=== PATIENT | male | born 1945 | race Caucasian/White ===

== ENCOUNTER 2017-09-17 08:31 | Inpatient (IN) ==
--- NOTE | 2017-09-17 09:13 | XRay Report ---
INDICATION: Weakness. Hypoxia. TECHNIQUE: AP chest x-ray,portable semierect COMPARISON: Chest x-rays dated 04/09/2016, 01/19/2016, 01/04/2016, 08/12/2015 FINDINGS:Previous median sternotomy. Mildly elevated right hemidiaphragm. There is mild right basilar parenchymal density. No dense consolidation. Right basilar pneumonia is possible. Follow-up PA and lateral chest x-rays would be helpful when clinically appropriate. Left lung is negative. Heart size is within normal limits considering AP positioning. No pulmonary edema or pulmonary congestion. IMPRESSION: 1. Mild right basilar pulmonary parenchymal density and associated elevation of the right hemidiaphragm as above. Findings may be secondary to pneumonia and follow-up PA and lateral radiographs recommended. 2. Otherwise negative examination Interpreted and Authenticated by: Mo Dotson 09/17/17
[2017-09-17 09:22] LABS: Basophils # (Auto) 0 K/mcL (0.0-0.3); Basophils % (Auto) 0.3 % (0.0-2.0); Eosinophils # (Auto) 0.1 K/mcL (0.0-0.7); Eosinophils % (Auto) 1.5 % (0.0-7.0); Granulocytes % (Auto) 71.7 % (38.0-78.0); Lymphocytes # (Auto) 1.6 K/mcL (1.5-4.8); Lymphocytes % (Auto) 17.3 % (15.5-49.0); Mean Corpuscular HGB Conc 33.7 g/dL (31.0-36.0); Mean Corpuscular Hemoglobin 27.7 pg (26.0-34.0); Monocytes # (Auto) 0.8 K/mcL (0.1-0.9); Monocytes % (Auto) 9.2 % (1.0-12.0); Platelet Count 161 K/mcL (140-440); RBC 3.48 M/mcL (4.50-5.90); Red Cell Distribution Width 15.8 % (11.5-14.5)
[2017-09-17 09:47] LABS: ALT/SGPT 12 U/l (0-40); Albumin 3.8 gm/dL (3.2-5.2); Albumin/Globulin Ratio 1.2 (1.0-2.3); Alkaline Phosphatase 51 U/L (39-117); Blood Urea Nitrogen 102 mg/dl (8-23)
--- NOTE | 2017-09-17 10:09 | Cat Scan Report ---
CLINICAL INFORMATION: Somnolence. Head injury. COMPARISON: MRI scan dated July 25, 2014 TECHNIQUE: Axial noncontrast-enhanced images through the brain. Suboptimal evaluation due to patient motion. Multiple images were repeated FINDINGS: No acute intracranial hemorrhage. No subdural hematoma. No subarachnoid hemorrhage. No intra-axial hematoma. There is cerebral atrophy with ventriculomegaly. There is white matter abnormality consistent with small vessel ischemic change. These findings are advanced for age and have progressed since July 25, 2014. No well-defined focal intra-axial attenuation abnormality. No localized mass effect. No midline shift. Basilar cisterns are normal. Brainstem and cerebellum are negative. No calvarial fracture. No lytic lesion. Temporal bones are negative. IMPRESSION: 1. Severe white matter abnormality and cerebral atrophy with ventriculomegaly. Mild interval progression since July 25, 2014 2. No acute abnormality. No intracranial hemorrhage. The exam was performed using radiation dose optimization techniques including, but not limited to, automated exposure control, adjustment of the mA and/or kV according to patient size and use of iterative reconstruction technique. Interpreted and Authenticated by: Mo Dotson 09/17/17
--- NOTE | 2017-09-17 10:09 | Emergency Department Note ---
Weakness HPI - General Chief complaint: Weakness Stated complaint: Weakness Time Seen by Provider: 09/17/17 08:48 Source: patient, EMS, old records reviewed Mode of arrival: EMS Limitations: no limitations - History of Present Illness HPI Narrative: A 72-year-old male comes in from [facility] for somnolence/ difficulty awakening. Apparently he had a fall yesterday was found on the floor down unclear if he hit his head or not. He slept well but nursing staff had difficulty awakening him and so sent him in. Apparently his blood pressure was elevated but his vital signs have been normal here except for blood sugar of 278. He is afebrile and not diaphoretic. He is somnolent and difficult to arouse-I have to continually arouse him to get him to answer questions. Is not complaining of chest pain but other than that is not able to give meaningful history or review of systems. Notable history of mild cognitive impairment as well. Patient is limited intervention as well as DO NOT RESUSCITATE-POST form reviewed - Related Data Home Medications Medication Instructions Recorded Confirmed acetaminophen 325 mg tablet 650 mg PO Q4H PRN 12/20/15 09/17/17 aspirin 81 mg tablet 81 mg PO QAM 12/20/15 09/17/17 atorvastatin 10 mg tablet 5 mg PO QHS tab 12/20/15 09/17/17 bisacodyl 10 mg rectal suppository 10 mg NC ONCE PRN 12/20/15 09/17/17 budesonide-formoterol HFA 80 1 inh INHALATION QDAY g 12/20/15 09/17/17 mcg-4.5 mcg/actuation aerosol inhaler clopidogrel 75 mg tablet 75 mg PO QAM tab 12/20/15 09/17/17 docusate sodium 100 mg capsule 100 mg PO BID PRN 12/20/15 09/17/17 glucagon (human recombinant) 1 1 mg IM ONCE 12/20/15 09/17/17 mg/mL solution for injection ipratropium-albuterol 0.5 mg-3 See Label Instructions INHALATION 12/20/15 mg(2.5 mg base)/3 mL nebulization QID PRN ml soln linagliptin 5 mg tablet 5 mg PO QDAY 12/20/15 09/17/17 magnesium oxide 400 mg tablet 400 mg PO BID 12/20/15 09/17/17 tiotropium bromide 18 mcg capsule 1 cap INHALATION QDAY 12/20/15 09/17/17 with inhalation device dimethicone 1.5 % topical cream 1.5 % TOPICAL BID PRN ml 01/05/16 09/17/17 oxycodone 7.5 mg tablet,oral ONLY 7.5 mg PO BIDP PRN 05/09/16 09/17/17 (not for feeding tubes) insulin glargine (U-100) 100 33 unit SUB-Q QHS ml 07/11/16 09/17/17 unit/mL subcutaneous solution levothyroxine 125 mcg tablet 125 mcg PO HS 10/15/16 09/17/17 ferrous sulfate 325 mg (65 mg 325 mg PO QDAY tab 07/31/17 09/17/17 iron) tablet bumetanide 1 mg tablet 1 mg PO BID tab 09/05/17 09/17/17 Finasteride [Proscar] 5 mg PO DAILY 09/17/17 09/17/17 Metolazone [Zaroxolyn] 2.5 mg PO UD 09/17/17 09/17/17 Potassium Chloride [K-Tab ER] 20 meq PO BID 09/17/17 09/17/17 Tamsulosin HCl [Flomax] 0.4 mg PO HS 09/17/17 09/17/17 Tolnaftate [Antifungal] 113.3 gm TP PRN PRN 09/17/17 09/17/17 Previous Rx's Medication Instructions Recorded fentanyl 75 mcg/hr transdermal 1 patch TRANSDERMA Q72H #10 patch 02/17/15 patch pregabalin 75 mg capsule 75 mg PO BID #14 cap 03/22/16 hydralazine 10 mg tablet 10 mg PO TID PRN #30 tab 01/16/17 Allergies Allergy/AdvReac Type Severity Reaction Status Date / Time meperidine Allergy Unknown Unknown Verified 09/17/17 08:39 Review of Systems Limitations: ROS unobtainable due to patients medical condition Past Medical History - Past Medical History Attestation: Yes: The following information was validated with the patient. Medical history: Reports: atrial fibrillation, CHF, COPD, coronary artery disease, DM, GERD, hyperlipidemia, hypertension, peripheral artery disease, renal disease, thyroid disease, other (Pain/fibromyalgia, mild cognitive impairment) Psychiatric history: Reports: depression Surgical history ED: Reports: coronary bypass (CABG) - Social History smoking status: Current every day smoker Physical Exam Resting comfortably. Normocephalic atraumatic. Overweight. Conjunctive are clear sclerae white and nonicteric. Pupils are small but responsive to light. No nasal congestion or discharge. Oropharynx with tacky buccal mucosa, he is a mouth breather. Neck without carotid bruit thyromegaly or lymphadenopathy heart is regular rate and rhythm however due to body habitus I cannot hear a murmur. Lungs are basically clear to auscultation I do not hear any crackles no cough. No respiratory distress. Abdomen is soft nontender nondistended except for the right upper quadrant which was tender at first but no Martinez sign. I.e. repeat examination showed no tenderness. Normal bowel sounds. No peritoneal signs or guarding. Bilateral lower extremity edema +2 with chronic venous stasis changes including crusting few scabs but no bulla are seen. He does get chronic wound care. Neurologically he is very somnolent and will wake up and answer 1 question and falls right back to sleep. I am unable to get any meaningful history from him except answering some brief yes or no questions. Some seborrhea on his face Limitations: no limitations Course Vital Signs Temperature 97.7 F 09/17/17 08:32 Pulse Rate 85 09/17/17 08:32 Respiratory Rate 18 09/17/17 08:32 Blood Pressure 185/160 09/17/17 08:32 Pulse Oximetry (%) 93 09/17/17 08:32 Temperature 97.7 F 09/17/17 08:32 Pulse Rate 108 H 09/17/17 13:41 Respiratory Rate 30 H 09/17/17 13:41 Blood Pressure 123/70 09/17/17 13:01 Pulse Oximetry (%) 98 09/17/17 12:31 Weakness - Lab Data Lab results reviewed: Yes I reviewed the patient's lab results. Result diagrams: 09/17/17 08:54 09/17/17 08:54 Lab Results 09/17/17 09/17/17 09/17/17 Range/Units 08:34 08:54 08:54 WBC 9.0 (4.5-11.0) K/mcL RBC 3.48 L (4.50-5.90) M/mcL Hgb 9.6 L (13.5-16.5) g/dL Hct 28.5 L (41.0-55.0) % MCV 82.0 (80.0-100.0) fL MCH 27.7 (26.0-34.0) pg MCHC 33.7 (31.0-36.0) g/dL RDW 15.8 H (11.5-14.5) % Plt Count 161 (140-440) K/mcL MPV 9.6 (7.4-10.4) fL Gran % 71.7 (38.0-78.0) % Lymph % (Auto) 17.3 (15.5-49.0) % Maverick % (Auto) 9.2 (1.0-12.0) % Eos % (Auto) 1.5 (0.0-7.0) % Baso % (Auto) 0.3 (0.0-2.0) % Gran # 6.5 (1.8-8.0) K/mcL Lymph # (Auto) 1.6 (1.5-4.8) K/mcL Maverick # (Auto) 0.8 (0.1-0.9) K/mcL Eos # (Auto) 0.1 (0.0-0.7) K/mcL Baso # (Auto) 0 (0.0-0.3) K/mcL VBG Lactic Acid (0.5-2.2) mmol/L Sodium 143 (133-145) mmol/L Potassium 3.3 (3.3-5.1) mmol/L Chloride 91 L (96-108) mmol/L Carbon Dioxide 39 H (22-30) mmol/L Anion Gap 13.0 (8-16) BUN 102 H* (8-23) mg/dl Creatinine 2.2 H (0.7-1.2) mg/dl GFR Calculation 29 Glucose 243 H (70-105) mg/dL Calcium 11.3 H (8.6-10.4) mg/dl Magnesium (1.6-2.5) mg/dL Total Bilirubin 0.4 (0.0-1.0) mg/dL AST 14 (0-37) U/l ALT 12 (0-40) U/l Alkaline Phosphatase 51 (39-117) U/L Ammonia (16-60) umol/L Total Creatine Kinase (24-195) IU/L CK-MB (CK-2) (0-4.9) ng/ml Troponin T (0-0.03) ng/ml NT-Pro-B Natriuret Pep 1861.0 H (0-125) pg/ml Total Protein 7.1 (5.9-8.4) gm/dL Albumin 3.8 (3.2-5.2) gm/dL Globulin 3.3 (2.2-3.7) gm/dL Albumin/Globulin Ratio 1.2 (1.0-2.3) Procalcitonin 0.11 (<0.10) ng/mL 09/17/17 09/17/17 09/17/17 Range/Units 08:54 08:54 08:54 WBC (4.5-11.0) K/mcL RBC (4.50-5.90) M/mcL Hgb (13.5-16.5) g/dL Hct (41.0-55.0) % MCV (80.0-100.0) fL MCH (26.0-34.0) pg MCHC (31.0-36.0) g/dL RDW (11.5-14.5) % Plt Count (140-440) K/mcL MPV (7.4-10.4) fL Gran % (38.0-78.0) % Lymph % (Auto) (15.5-49.0) % Maverick % (Auto) (1.0-12.0) % Eos % (Auto) (0.0-7.0) % Baso % (Auto) (0.0-2.0) % Gran # (1.8-8.0) K/mcL Lymph # (Auto) (1.5-4.8) K/mcL Maverick # (Auto) (0.1-0.9) K/mcL Eos # (Auto) (0.0-0.7) K/mcL Baso # (Auto) (0.0-0.3) K/mcL VBG Lactic Acid (0.5-2.2) mmol/L Sodium (133-145) mmol/L Potassium (3.3-5.1) mmol/L Chloride (96-108) mmol/L Carbon Dioxide (22-30) mmol/L Anion Gap (8-16) BUN (8-23) mg/dl Creatinine (0.7-1.2) mg/dl GFR Calculation Glucose (70-105) mg/dL Calcium (8.6-10.4) mg/dl Magnesium (1.6-2.5) mg/dL Total Bilirubin (0.0-1.0) mg/dL AST (0-37) U/l ALT (0-40) U/l Alkaline Phosphatase (39-117) U/L Ammonia (16-60) umol/L Total Creatine Kinase 139 (24-195) IU/L CK-MB (CK-2) 3.1 (0-4.9) ng/ml Troponin T 0.18 H* (0-0.03) ng/ml NT-Pro-B Natriuret Pep Cancelled (0-125) pg/ml Total Protein (5.9-8.4) gm/dL Albumin (3.2-5.2) gm/dL Globulin (2.2-3.7) gm/dL Albumin/Globulin Ratio (1.0-2.3) Procalcitonin (<0.10) ng/mL 09/17/17 09/17/17 09/17/17 Range/Units 08:54 09:06 10:00 WBC (4.5-11.0) K/mcL RBC (4.50-5.90) M/mcL Hgb (13.5-16.5) g/dL Hct (41.0-55.0) % MCV (80.0-100.0) fL MCH (26.0-34.0) pg MCHC (31.0-36.0) g/dL RDW (11.5-14.5) % Plt Count (140-440) K/mcL MPV (7.4-10.4) fL Gran % (38.0-78.0) % Lymph % (Auto) (15.5-49.0) % Maverick % (Auto) (1.0-12.0) % Eos % (Auto) (0.0-7.0) % Baso % (Auto) (0.0-2.0) % Gran # (1.8-8.0) K/mcL Lymph # (Auto) (1.5-4.8) K/mcL Maverick # (Auto) (0.1-0.9) K/mcL Eos # (Auto) (0.0-0.7) K/mcL Baso # (Auto) (0.0-0.3) K/mcL VBG Lactic Acid 1.4 (0.5-2.2) mmol/L Sodium (133-145) mmol/L Potassium (3.3-5.1) mmol/L Chloride (96-108) mmol/L Carbon Dioxide (22-30) mmol/L Anion Gap (8-16) BUN (8-23) mg/dl Creatinine (0.7-1.2) mg/dl GFR Calculation Glucose (70-105) mg/dL Calcium (8.6-10.4) mg/dl Magnesium 2.1 (1.6-2.5) mg/dL Total Bilirubin (0.0-1.0) mg/dL AST (0-37) U/l ALT (0-40) U/l Alkaline Phosphatase (39-117) U/L Ammonia 17 (16-60) umol/L Total Creatine Kinase (24-195) IU/L CK-MB (CK-2) (0-4.9) ng/ml Troponin T (0-0.03) ng/ml NT-Pro-B Natriuret Pep (0-125) pg/ml Total Protein (5.9-8.4) gm/dL Albumin (3.2-5.2) gm/dL Globulin (2.2-3.7) gm/dL Albumin/Globulin Ratio (1.0-2.3) Procalcitonin (<0.10) ng/mL 09/17/17 Range/Units 12:18 WBC (4.5-11.0) K/mcL RBC (4.50-5.90) M/mcL Hgb (13.5-16.5) g/dL Hct (41.0-55.0) % MCV (80.0-100.0) fL MCH (26.0-34.0) pg MCHC (31.0-36.0) g/dL RDW (11.5-14.5) % Plt Count (140-440) K/mcL MPV (7.4-10.4) fL Gran % (38.0-78.0) % Lymph % (Auto) (15.5-49.0) % Maverick % (Auto) (1.0-12.0) % Eos % (Auto) (0.0-7.0) % Baso % (Auto) (0.0-2.0) % Gran # (1.8-8.0) K/mcL Lymph # (Auto) (1.5-4.8) K/mcL Maverick # (Auto) (0.1-0.9) K/mcL Eos # (Auto) (0.0-0.7) K/mcL Baso # (Auto) (0.0-0.3) K/mcL VBG Lactic Acid (0.5-2.2) mmol/L Sodium (133-145) mmol/L Potassium (3.3-5.1) mmol/L Chloride (96-108) mmol/L Carbon Dioxide (22-30) mmol/L Anion Gap (8-16) BUN (8-23) mg/dl Creatinine (0.7-1.2) mg/dl GFR Calculation Glucose (70-105) mg/dL Calcium (8.6-10.4) mg/dl Magnesium (1.6-2.5) mg/dL Total Bilirubin (0.0-1.0) mg/dL AST (0-37) U/l ALT (0-40) U/l Alkaline Phosphatase (39-117) U/L Ammonia (16-60) umol/L Total Creatine Kinase (24-195) IU/L CK-MB (CK-2) (0-4.9) ng/ml Troponin T 0.23 H* (0-0.03) ng/ml NT-Pro-B Natriuret Pep (0-125) pg/ml Total Protein (5.9-8.4) gm/dL Albumin (3.2-5.2) gm/dL Globulin (2.2-3.7) gm/dL Albumin/Globulin Ratio (1.0-2.3) Procalcitonin (<0.10) ng/mL Last troponin to compare to was 0.06 in 2013 Urinalysis point of care dipstick shows normal findings except for specific gravity 1.015 and glucose 250 ABG shows pH 7.5 to PCO2 of 58 and PO2 of 103 - Radiology Data Radiology results reviewed: Yes I reviewed the patient's radiology results. Chest x-ray one view portable shows possible right lower lobe pneumonia with CHF stable. Because of the possible right lower lobe pneumonia 2 views of the chest were ordered 2 views of the chest showed mild volume loss in the right side which could be pneumonia or atelectasis not conclusive CT of the head shows small vessel white matter changes likely from chronic vasculopathy/atherosclerotic changes severe advanced for age. No acute findings Postvoid residual shows 587 mL. Patient refused Vela catheter - EKG Data EKG attestation: Yes I reviewed and interpreted this EKG. EKG results narrative: EKG shows what looks like sinus rhythm with atrial pacing but PVC also evident with rate of 86 T-wave depression downsloping V4 to V6, 1 and aVL. It is difficult to see all the P waves When compared to previous EKG 04/2016- had couplets with repolarization abnormalities-today's shows new diffuse T-wave downsloping depression. T-wave in V1 and V2 consistent with old septal infarct Hips throughout his stay here showed run of V. tach as well as looks like may be atrial fibrillation which he has a history of Disposition Pt seen by PORTABLE TRACK LINE MARKER/PA only: No Clinical Impression: Elevated troponin, DM (diabetes mellitus), type 2 with peripheral vascular complications, Uncontrolled daytime somnolence, Uremia, Urinary retention Right lower lobe pneumonia Qualifiers: Pneumonia type: due to unspecified organism Qualified Code(s): J18.1 - Lobar pneumonia, unspecified organism CHF (congestive heart failure) Qualifiers: Heart failure type: unspecified Heart failure chronicity: chronic Qualified Code(s): I50.9 - Heart failure, unspecified CKD (chronic kidney disease) Qualifiers: Chronic kidney disease stage: stage 4 (severe) Qualified Code(s): N18.4 - Chronic kidney disease, stage 4 (severe) Summary: Patient was initially seen and evaluated as above. Workup began with lab imaging etc. After x-ray showed possible pneumonia blood cultures lactic acid procalcitonin ordered as well as 1 dose of Zosyn given 3.375 Troponin was elevated mildly but this could be due to chronic kidney disease and possible pneumonia case was discussed with Dr. Kaleb Butt at [facility]. He recommended ordering CK-MB and total CK to further sort out Rhythm strip showed a run of V. tach which was concerning so we discussed with patient what to do. Patient does want to be shocked back and rhythm if needed. Although his post form does say DNR he does want lifesaving treatment if needed. He remains somnolent but arousable. Defibrillator pads put on. Vital signs remained stable After getting his CK-MB and CK back, which were normal, I discussed the case with our hospitalist Dr. Puga as Dr. Butt did not feel that this was cardiac in nature. However certainly the patient is having some evidence of strain with that run of V. tach earlier. Also seems to be having some atrial fibrillation on the rhythm strip at times but again EKGs have been sinus rhythm with atrial paced complexes as well as PVCs. Repeat EKG again notes diffuse wheezing ST depression downsloping but no significant change. He remains somnolent, blood pressure normal Dr. Puga agreed to accept the patient and asked me to get a blood gas as well as repeat troponin which are ordered. He then ordered CT scan prior to coming to the floor; Narcan also requested on the off chance that perhaps this was opiate induced somnolence i.e. overmedication with oxycodone and fentanyl patch. Patient did not respond to IV Narcan 20 minutes after receiving Narcan patient was in CT scan and became agitated pulling on his IV and would not sit still. CT scan was stopped and he was brought back. He was wheezing some -mild end expiratory wheeze which was new which he did not have when he first came in . I gave him 1 dose of Ativan and started her breathing treatment and notified Dr. Puga. He was brought to the ICU Disposition: Xfer As Inpt ([facility]) Condition: Critical
[2017-09-17] MEDS ORDERED: PIPERACILLIN SODIUM/TAZOBACTAM 3.375 GM in DEXTROSE 5% IN WATER 50 ML IV ONE (10:32)
--- NOTE | 2017-09-17 10:37 | XRay Report ---
INDICATION: Hypoxia TECHNIQUE: PA and lateral upright chest x-ray COMPARISON: Previous AP portable chest x-ray dated 09/07/2017. Chest x-rays dated 04/09/2016, 01/19/2016, 01/04/2016 FINDINGS:Previous median sternotomy. There is mild cardiomegaly. Pulmonary vascularity is unremarkable. No pulmonary edema or significant pulmonary congestion. Mild bilateral lower lobe pulmonary parenchymal density. Findings may be due to benign volume loss but pneumonia is possible. Right hemidiaphragm is elevated consistent with volume loss. This is a new finding since 04/09/2016. No pleural effusion. Tamra and mediastinum are negative. IMPRESSION: 1. Cardiomegaly. No pulmonary congestion or pulmonary edema 2. Bilateral lower lobe pulmonary parenchymal density may be benign volume loss but pneumonia is possible. Interpreted and Authenticated by: Mo Dotson 09/17/17
[2017-09-17 11:11] LABS: Creatine Kinase 139 IU/L (24-195); Creatine Kinase MB 3.1 ng/ml (0-4.9)
[2017-09-17] MEDS ORDERED: NALOXONE HCL 0.4 MG/ML VIAL IV ONE (13:06)
[2017-09-17] MEDS ORDERED: NALOXONE HCL 0.4 MG/ML VIAL ONE (13:09)
--- NOTE | 2017-09-17 13:18 | Internal Med History&Physical ---
Medical - H&P: HPI Patient information: Note initiated : 09/17/17 at 1:14 pm Service Date, if different from initiated Date: [] Patient: Carmelo Stewart a 72 y/o M admitted on for Weakness. Chief Complaint: [] History of present illness: Mr. Stewart is a 72 year old Male with multiple medical issues, [place] the [place] after being confused and drowsy since this AM, no other history available, apart from possible fall yesterday In the ER pt was solmenent and only wakes up to verbal of touch, does not open eyes spontaneously, he tries to answer questions but unable to provide any meaninful input. I am aware that the ER provider tried to ask him if he would like to be cardioverted, and he noted yes, I doubt if he comphreneds enough to provide any meaningful answer to that question. Workup in the ER, showed stable vital signs. WBC count of 9.0, no left shift, hemoglobin 9.6 platelets 161. Sodium 143, potassium 3.3, chloride 91, bicarbonate 39 elevated from before, BUN is 102 elevated from baseline for him 60-70, creatinine is 2.2, glucose 243. Calcium is 11.3 elevated. Lactic acid 1.4, troponin 0 0.18 patient has had chronic elevation of troponins in the past but not this high usually highest was 0.1 to a couple of years ago. Patient has CK and CK-MB levels which are normal. BNP is 1861. Ammonia level 17. ABG shows pH of 7.5 to-PCO2 59-p.o. 203. Chest x-ray shows possible pneumonia in the right base, EKG shows sinus rhythm few PACs, left axis left anterior vascular block, T-wave inversions in the lateral leads, QS patterns V1 V2, Head CT neg. His case was reviewed by [employer] Dr Butt, who noted that his rise in troponin is non cardiac in nature, and did not want pt to be transferred to higher center. patient did get narcan with no response. On my eval he did have some right lateral abdominal pain, he is s/p cholecystectomy. He will get a CT chest abdomen and pelvis to r/o any other infectious pathology He will be admitted to telemetery. chart review. most of history available from chart review. ROS unobtainable: due to mental status Medical - H&P: PMH Medical history: Medical History (Last Reviewed 09/05/17 @ 13:50 by Liza Rashid MD) Ventricular premature beats (Acute) DM (diabetes mellitus), type 2 with neurological complications (Chronic) Acute URI (Chronic) Alcoholism (Chronic) Anemia (Chronic) Arthritis (Chronic) Chronic pain syndrome (Chronic) Kidney disease (Chronic) Kidney stones (Chronic) Asthma (Chronic) Hypercholesterolemia (Chronic) Hypertension (Chronic) Heart disease (Chronic) Hypothyroidism (Chronic) PTSD (post-traumatic stress disorder) (Chronic) High-density lipoid deficiency (Chronic) CAD (coronary artery disease) (Chronic) Coccydynia (Chronic) Gastroesophageal reflux disease (Chronic) Atrial fibrillation (Chronic) intermediate teacher prescription opiate use (Chronic) 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) Fibromyalgia (Chronic) Tobacco use (Chronic) 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) Muscle weakness (Chronic) Abnormality of gait (Chronic) Cervical radiculopathy (Chronic) CHF (congestive heart failure) (Chronic) PVD (peripheral vascular disease) (Chronic) Diabetic neuropathy (Chronic) DM (diabetes mellitus), type 2 with peripheral vascular complications (Chronic) 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) CKD (chronic kidney disease) (Chronic) Spinal stenosis (Chronic) COPD (chronic obstructive pulmonary disease) (Chronic) Diabetes mellitus (Chronic) Surgical history: Past Surgical History (Last Reviewed 09/05/17 @ 13:50 by Liza Rashid MD) History of cholecystectomy (Chronic) History of lumbosacral spine surgery (Chronic) History of parathyroidectomy (Chronic) History of sinus surgery (Chronic) History of surgery (Chronic) History of tonsillectomy (Chronic) Pertinent family history: Family History (Last Reviewed 09/05/17 @ 13:50 by Liza Rashid MD) Other Family history unknown Medical - H&P: Meds Home Medications Medication Instructions Recorded Confirmed Type fentanyl 75 mcg/hr transdermal 1 patch TRANSDERMA Q72H #10 patch 02/17/15 Rx patch acetaminophen 325 mg tablet 650 mg PO Q4H PRN 12/20/15 09/17/17 History aspirin 81 mg tablet 81 mg PO QAM 12/20/15 09/17/17 History atorvastatin 10 mg tablet 5 mg PO QHS tab 12/20/15 09/17/17 History bisacodyl 10 mg rectal suppository 10 mg [place] ONCE PRN 12/20/15 09/17/17 History budesonide-formoterol HFA 80 1 inh INHALATION QDAY g 12/20/15 09/17/17 History mcg-4.5 mcg/actuation aerosol inhaler clopidogrel 75 mg tablet 75 mg PO QAM tab 12/20/15 09/17/17 History docusate sodium 100 mg capsule 100 mg PO BID PRN 12/20/15 09/17/17 History glucagon (human recombinant) 1 1 mg IM ONCE 12/20/15 09/17/17 History mg/mL solution for injection ipratropium-albuterol 0.5 mg-3 See Label Instructions INHALATION 12/20/15 History mg(2.5 mg base)/3 mL nebulization QID PRN ml soln linagliptin 5 mg tablet 5 mg PO QDAY 12/20/15 09/17/17 History magnesium oxide 400 mg tablet 400 mg PO BID 12/20/15 09/17/17 History tiotropium bromide 18 mcg capsule 1 cap INHALATION QDAY 12/20/15 09/17/17 History with inhalation device dimethicone 1.5 % topical cream 1.5 % TOPICAL BID PRN ml 01/05/16 09/17/17 History pregabalin 75 mg capsule 75 mg PO BID #14 cap 03/22/16 09/17/17 Rx oxycodone 7.5 mg tablet,oral ONLY 7.5 mg PO BIDP PRN 05/09/16 09/17/17 History (not for feeding tubes) insulin glargine (U-100) 100 33 unit SUB-Q QHS ml 07/11/16 09/17/17 History unit/mL subcutaneous solution levothyroxine 125 mcg tablet 125 mcg PO HS 10/15/16 09/17/17 History hydralazine 10 mg tablet 10 mg PO TID PRN #30 tab 01/16/17 09/17/17 Rx ferrous sulfate 325 mg (65 mg 325 mg PO QDAY tab 07/31/17 09/17/17 History iron) tablet bumetanide 1 mg tablet 1 mg PO BID tab 09/05/17 09/17/17 History Finasteride [Proscar] 5 mg PO DAILY 09/17/17 09/17/17 History Metolazone [Zaroxolyn] 2.5 mg PO UD 09/17/17 09/17/17 History Potassium Chloride [K-Tab ER] 20 meq PO BID 09/17/17 09/17/17 History Tamsulosin HCl [Flomax] 0.4 mg PO HS 09/17/17 09/17/17 History Tolnaftate [Antifungal] 113.3 gm TP PRN PRN 09/17/17 09/17/17 History Allergies Allergy/AdvReac Type Severity Reaction Status Date / Time meperidine Allergy Unknown Unknown Verified 09/17/17 08:39 Medical - H&P: Exam - Constitutional Vitals: Temp Pulse Resp BP Pulse Ox 97.7 F 69 17 125/65 98 09/17/17 08:32 09/17/17 12:31 09/17/17 12:31 09/17/17 12:31 09/17/17 12:31 Exam: GENERAL: The patient is a obese, drowsy, aoox1, confused VITAL SIGNS: Reviewed and as noted elsewhere. HEENT: Head is normocephalic and atraumatic. Extraocular muscles are intact. Pupils are equal, round, and reactive to light. Nares appeared normal. Mouth appears any without lesions. Mucous membranes are dry NECK: Normal to inspection, Supple, No lymphadenopathy or thyromegaly. LUNGS: Air entry equal on both sides, mild wheezing present, crackles or rhonchi noted. No accessory muscles of respiration, poor air entry bilaterally. HEART: Regular rate and rhythm normal, S1 and S2 heard, no Gallop, S3 or Rub Noted, No Gross murmur heard. ABDOMEN: Soft, right side tenderness, no guarding or rebound noted, nondistended. Positive bowel sounds. No hepatosplenomegaly was noted. EXTREMITIES: No cyanosis, clubbing, rash, . bilaterally has dry scaly lesions in lower 1/3, 1+ pitting edema present. NEUROLOGIC: Cranial nerves II through XII are grossly intact. Motor and Sensory System Grossly Intact, moves all extremities, responds to touch PSYCHIATRIC: Normal affect, Normal Mood. Appropriate Behavior. SKIN:wounds noted, No jaundice, No rash noted. Medical - H&P: Reslt - Labs CBC & Chem 7: 09/17/17 08:54 09/17/17 08:54 Labs: Short CBC 09/17/17 Range/Units 08:54 WBC 9.0 (4.5-11.0) K/mcL Hgb 9.6 L (13.5-16.5) g/dL Hct 28.5 L (41.0-55.0) % Plt Count 161 (140-440) K/mcL BMP 09/17/17 08:54 Sodium 143 Potassium 3.3 Chloride 91 L Carbon Dioxide 39 H BUN 102 H* Creatinine 2.2 H Glucose 243 H Calcium 11.3 H Cardiac Enzymes 09/17/17 09/17/17 Range/Units 08:54 08:54 Total Creatine Kinase 139 (24-195) IU/L CK-MB (CK-2) 3.1 (0-4.9) ng/ml Troponin T 0.18 H* (0-0.03) ng/ml Liver Function 09/17/17 Range/Units 08:54 Total Bilirubin 0.4 (0.0-1.0) mg/dL AST 14 (0-37) U/l ALT 12 (0-40) U/l Alkaline Phosphatase 51 (39-117) U/L Albumin 3.8 (3.2-5.2) gm/dL Medical - H&P: A/P - Narrative A/P Narrative: A/P Acute encephalopathy: Workup neg so far, likely uremic encephalopathy, hold off narcotic meds for now, did not respond to narcan. Acute worsening of BUN: It seems pt was getting diuretics for his lower extremity edema, bun baseline around 60, now 102, this could be causing some encephalopathy. HOld diureitcs, IV fluids for now, and monitor for response pneumonia: reported on X ray, but labs and exam is not suggestive of same. Get CT Chest, start on vanco and zosyn Copd exacerbation/ Reactive airway disease: mild wheezing on exam, start on duonebs, azithromax and solumedrol Abdominal tenderness: h/o cholecystectomy, get Abdominal CT without contrast DM: Sliding scale insulin for glucose control hold oral meds CAD/HTN/HLD: Resume home meds as appropriate CKD: Creat around baseline, monitor and see how he does with fluids, if worsens get nephrology help, try to get a trejo Elevated Trop and EKG changes: Could be seen with electrolyte changes, and CKD, pt did not have cp, althouth NSVT was present, given that the director nursery school feels this is non cardiac, will just monitor for now. ALso given his overalll clinical picture, doublt if he will be a candidate for any intervention. MOrbid obesity- out pt management. lower extremity venous stasis: does not look infected, wound care consult, antibiotics for now; h/o chf: hold diuretics for now Chr pain: DJD, on fentanyl patch, oxycodone,. hold same for now await for patient to wake up DVT hep sq Diet cardiac, renal diabetic diet DNR code status as per post, pt is encephalopathic and I cannot say that he was able to make any informed decision at this time. monitor on tele. Update: Pt was agitated in the CT, and Kicked the nurse as per the ER provider, he did get some ativan Social History - Social History marital status: single occupational status: retired other: Recently weaned off Marinol - Exercise physical activity: none - Tobacco smoking status: Current every day smoker - Alcohol alcohol intake frequency: a few times a month - Substance use substance use type: marijuana, crack/cocaine, amphetamines
[2017-09-17] MEDS ORDERED: LORazepam 2 MG/ML VIAL ONE (13:30)
[2017-09-17] MEDS ORDERED: IPRATROPIUM/ALBUTEROL 3 ML AMPUL.NEB NEB ONE (13:33)
[2017-09-17] MEDS ORDERED: LORazepam 2 MG/ML VIAL IV ONE (13:36)
[2017-09-17] MEDS ORDERED: DOCUSATE SODIUM 100 MG CAPSULE PO PRN (14:13)
[2017-09-17] MEDS ORDERED: DEXTROSE 50% 50 ML VIAL IV PRN (14:13)
[2017-09-17] MEDS ORDERED: VANCOMYCIN PER PHARMACY IV SCH (14:13)
[2017-09-17] MEDS ORDERED: DEXTROSE 31 GM ORAL.SUSP PO PRN (14:13)
[2017-09-17] MEDS ORDERED: hydrALAZINE 10 MG TABLET PO PRN (14:13)
[2017-09-17] MEDS ORDERED: NALOXONE HCL 0.4 MG/ML VIAL IV PRN (14:13)
[2017-09-17] MEDS ORDERED: 0.9 % SODIUM CHLORIDE 1,000 ML IV ONE (14:13)
[2017-09-17] MEDS: 0.9 % SODIUM CHLORIDE 1,000 ML IV SCH (14:30)
[2017-09-17] MEDS: IPRATROPIUM/ALBUTEROL 3 ML AMPUL.NEB NEB SCH ×3 (15:16→22:47)
[2017-09-17] MEDS ORDERED: VANCOMYCIN 2,000 MG in 0.9 % SODIUM CHLORIDE 500 ML IV SCH (16:00)
[2017-09-17] MEDS ORDERED: PIPERACILLIN SODIUM/TAZOBACTAM 3.375 GM in DEXTROSE 5% IN WATER 50 ML IV SCH (16:00)
[2017-09-17] MEDS ORDERED: METOPROLOL TARTRATE 5 MG/5 ML VIAL IV ONE ×3 (16:26→16:35)
[2017-09-17] MEDS: 0.9 % SODIUM CHLORIDE 10 ML SYRINGE IV SCH ×2 (17:49→21:43)
[2017-09-17] MEDS: AZITHROMYCIN 500 MG in DEXTROSE 5% IN WATER 250 ML IV SCH (17:57)
[2017-09-17] MEDS: methylPREDNISolone SOD SUCC 125 MG/2 ML VIAL IV SCH (18:02)
[2017-09-17] MEDS: INSULIN LISPRO 1 UNIT/0.01 ML UNIT SQ SCH ×2 (18:09→21:32)
--- NOTE | 2017-09-17 18:58 | General Surgery Consult Note ---
History of Present Illness Patient information: Note initiated : 09/17/17 at 6:54 pm Service Date, if different from initiated Date: [] Patient: Carmelo Stewart 72 y/o M admitted on 09/17/17 for Weakness. Chief Complaint: [] Consult date: 09/17/17 Requesting physician: Chris Puga (Wound Care Management) History of present illness: I saw this patient in room 120 /A . 72/M with multiple medical problems, Morbid Obesity, Daily smoker admitted from [facility] for [facility], pneumonia and CHF, arrhythmias . These are being managed by the Hospitalist Physician. Patient has chronic scaly dermatitis of both legs. L > R. He is being followed in [facility] for same. Medications and Allergies Home Medications Medication Instructions Recorded Confirmed Type fentanyl 75 mcg/hr transdermal 1 patch TRANSDERMA Q72H #10 patch 02/17/15 Rx patch acetaminophen 325 mg tablet 650 mg PO Q4H PRN 12/20/15 09/17/17 History aspirin 81 mg tablet 81 mg PO QAM 12/20/15 09/17/17 History atorvastatin 10 mg tablet 5 mg PO QHS tab 12/20/15 09/17/17 History bisacodyl 10 mg rectal suppository 10 mg [place] ONCE PRN 12/20/15 09/17/17 History budesonide-formoterol HFA 80 1 inh INHALATION QDAY g 12/20/15 09/17/17 History mcg-4.5 mcg/actuation aerosol inhaler clopidogrel 75 mg tablet 75 mg PO QAM tab 12/20/15 09/17/17 History docusate sodium 100 mg capsule 100 mg PO BID PRN 12/20/15 09/17/17 History glucagon (human recombinant) 1 1 mg IM ONCE 12/20/15 09/17/17 History mg/mL solution for injection ipratropium-albuterol 0.5 mg-3 See Label Instructions INHALATION 12/20/15 History mg(2.5 mg base)/3 mL nebulization QID PRN ml soln linagliptin 5 mg tablet 5 mg PO QDAY 12/20/15 09/17/17 History magnesium oxide 400 mg tablet 400 mg PO BID 12/20/15 09/17/17 History tiotropium bromide 18 mcg capsule 1 cap INHALATION QDAY 12/20/15 09/17/17 History with inhalation device dimethicone 1.5 % topical cream 1.5 % TOPICAL BID PRN ml 01/05/16 09/17/17 History pregabalin 75 mg capsule 75 mg PO BID #14 cap 03/22/16 09/17/17 Rx oxycodone 7.5 mg tablet,oral ONLY 7.5 mg PO BIDP PRN 05/09/16 09/17/17 History (not for feeding tubes) insulin glargine (U-100) 100 33 unit SUB-Q QHS ml 07/11/16 09/17/17 History unit/mL subcutaneous solution levothyroxine 125 mcg tablet 125 mcg PO HS 10/15/16 09/17/17 History hydralazine 10 mg tablet 10 mg PO TID PRN #30 tab 01/16/17 09/17/17 Rx ferrous sulfate 325 mg (65 mg 325 mg PO QDAY tab 07/31/17 09/17/17 History iron) tablet bumetanide 1 mg tablet 1 mg PO BID tab 09/05/17 09/17/17 History Finasteride [Proscar] 5 mg PO DAILY 09/17/17 09/17/17 History Metolazone [Zaroxolyn] 2.5 mg PO UD 09/17/17 09/17/17 History Potassium Chloride [K-Tab ER] 20 meq PO BID 09/17/17 09/17/17 History Tamsulosin HCl [Flomax] 0.4 mg PO HS 09/17/17 09/17/17 History Tolnaftate [Antifungal] 113.3 gm TP PRN PRN 09/17/17 09/17/17 History Allergies Allergy/AdvReac Type Severity Reaction Status Date / Time meperidine Allergy Unknown Unknown Verified 09/17/17 08:39 Exam Temp Pulse Resp BP Pulse Ox 97.7 F 112 H 19 153/97 93 09/17/17 18:28 09/17/17 18:28 09/17/17 18:28 09/17/17 18:28 09/17/17 18:28 - General physical appearance well developed, moderate distress, obese - Eyes PERRL, normal ocular movement - ENT normal pinna, normal nares, normal mucosa, no congestion - Head Head exam IM: Present: atraumatic, normal inspection, normocephalic - Neck no masses, no bruits, trachea midline, no venous distension - Cardiovascular Cardiovascular exam IM: Present: irregular rhythm - Respiratory absent breath sounds: bilateral (Both lung bases) - Abdomen Abdomen: Present: soft, non tender, bowel sounds - Integumentary Present: other (2 + edema both legs and dorsal surface of feet. Scals and chronic dermatitis both legs lower lateral sufaces L > R) - Neurologic Present: confused - Musculoskeletal Present: other (Lying in bed. ) - Psychiatric Present: other (Sleepy. Will check again in AM. ) Results - Labs 09/18/17 07:47 09/18/17 07:47 Abnormal lab results 09/17/17 09/17/17 09/17/17 Range/Units 08:54 08:54 08:54 RBC 3.48 L (4.50-5.90) M/mcL Hgb 9.6 L (13.5-16.5) g/dL Hct 28.5 L (41.0-55.0) % RDW 15.8 H (11.5-14.5) % Chloride 91 L (96-108) mmol/L Carbon Dioxide 39 H (22-30) mmol/L BUN 102 H* (8-23) mg/dl Creatinine 2.2 H (0.7-1.2) mg/dl Glucose 243 H (70-105) mg/dL Calcium 11.3 H (8.6-10.4) mg/dl Troponin T 0.18 H* (0-0.03) ng/ml NT-Pro-B Natriuret Pep 1861.0 H (0-125) pg/ml 09/17/17 Range/Units 12:18 RBC (4.50-5.90) M/mcL Hgb (13.5-16.5) g/dL Hct (41.0-55.0) % RDW (11.5-14.5) % Chloride (96-108) mmol/L Carbon Dioxide (22-30) mmol/L BUN (8-23) mg/dl Creatinine (0.7-1.2) mg/dl Glucose (70-105) mg/dL Calcium (8.6-10.4) mg/dl Troponin T 0.23 H* (0-0.03) ng/ml NT-Pro-B Natriuret Pep (0-125) pg/ml Diabetes panel 09/17/17 Range/Units 08:54 Sodium 143 (133-145) mmol/L Potassium 3.3 (3.3-5.1) mmol/L Chloride 91 L (96-108) mmol/L Carbon Dioxide 39 H (22-30) mmol/L BUN 102 H* (8-23) mg/dl Creatinine 2.2 H (0.7-1.2) mg/dl Glucose 243 H (70-105) mg/dL Calcium 11.3 H (8.6-10.4) mg/dl AST 14 (0-37) U/l ALT 12 (0-40) U/l Alkaline Phosphatase 51 (39-117) U/L Total Protein 7.1 (5.9-8.4) gm/dL Albumin 3.8 (3.2-5.2) gm/dL Calcium panel 09/17/17 Range/Units 08:54 Calcium 11.3 H (8.6-10.4) mg/dl Albumin 3.8 (3.2-5.2) gm/dL Pituitary panel 09/17/17 Range/Units 08:54 Sodium 143 (133-145) mmol/L Potassium 3.3 (3.3-5.1) mmol/L Chloride 91 L (96-108) mmol/L Carbon Dioxide 39 H (22-30) mmol/L BUN 102 H* (8-23) mg/dl Creatinine 2.2 H (0.7-1.2) mg/dl Glucose 243 H (70-105) mg/dL Calcium 11.3 H (8.6-10.4) mg/dl Adrenal panel 09/17/17 Range/Units 08:54 Sodium 143 (133-145) mmol/L Potassium 3.3 (3.3-5.1) mmol/L Chloride 91 L (96-108) mmol/L Carbon Dioxide 39 H (22-30) mmol/L BUN 102 H* (8-23) mg/dl Creatinine 2.2 H (0.7-1.2) mg/dl Glucose 243 H (70-105) mg/dL Calcium 11.3 H (8.6-10.4) mg/dl Total Bilirubin 0.4 (0.0-1.0) mg/dL AST 14 (0-37) U/l ALT 12 (0-40) U/l Alkaline Phosphatase 51 (39-117) U/L Total Protein 7.1 (5.9-8.4) gm/dL Albumin 3.8 (3.2-5.2) gm/dL All other labs normal. Assessment and Plan (1) Dermatitis exfoliativa Assessment: Chronic scales and dry dermatitis of both legs. Plan: Local hygiene and DAILY cleansing with Chlorhexidine an topical application of skin repair creme / moisturizer. Will follow the patient whilst he is hospitalized. Status: Chronic Priority: Low Comment: Chronic edema of both LE and scales / dermatitis of both lower lateral legs. NO evidence of acute infection or cellulitis.
[2017-09-17] MEDS: MAGNESIUM OXIDE 400 MG TABLET PO SCH (21:25)
[2017-09-17] MEDS: LEVOTHYROXINE 125 MCG TABLET PO SCH (21:25)
[2017-09-17] MEDS: TAMSULOSIN 0.4 MG CAPSULE PO SCH (21:25)
[2017-09-17] MEDS: PREGABALIN 75 MG CAPSULE PO SCH (21:32)
[2017-09-17] MEDS: ATORVASTATIN 20 MG TABLET PO SCH (21:32)
[2017-09-17] MEDS: HEPARIN 5,000 UNIT/ML VIAL SQ SCH (21:32)
[2017-09-17] MEDS: PIPERACILLIN SODIUM/TAZOBACTAM 3.375 GM in DEXTROSE 5% IN WATER 50 ML IV SCH (22:15)
[2017-09-18] MEDS: methylPREDNISolone SOD SUCC 125 MG/2 ML VIAL IV SCH ×4 (00:26→22:05)
[2017-09-18] MEDS: ACETAMINOPHEN 325 MG TABLET PO PRN ×2 (02:18→08:30)
[2017-09-18] MEDS: 0.9 % SODIUM CHLORIDE 1,000 ML IV SCH (02:51)
[2017-09-18] MEDS: IPRATROPIUM/ALBUTEROL 3 ML AMPUL.NEB NEB SCH ×6 (03:46→23:19)
[2017-09-18] MEDS: 0.9 % SODIUM CHLORIDE 10 ML SYRINGE IV SCH ×3 (05:49→22:03)
[2017-09-18] MEDS: PIPERACILLIN SODIUM/TAZOBACTAM 3.375 GM in DEXTROSE 5% IN WATER 50 ML IV SCH ×3 (05:49→22:04)
[2017-09-18] MEDS: INSULIN LISPRO 1 UNIT/0.01 ML UNIT SQ SCH ×4 (07:52→21:03)
[2017-09-18 08:20] LABS: Basophils # (Auto) 0 K/mcL (0.0-0.3); Basophils % (Auto) 0 % (0.0-2.0); Eosinophils # (Auto) 0 K/mcL (0.0-0.7); Eosinophils % (Auto) 0 % (0.0-7.0); Granulocytes % (Auto) 91.5 % (38.0-78.0); Lymphocytes # (Auto) 0.7 K/mcL (1.5-4.8); Lymphocytes % (Auto) 7.9 % (15.5-49.0); Mean Corpuscular HGB Conc 32.8 g/dL (31.0-36.0); Mean Corpuscular Hemoglobin 27.2 pg (26.0-34.0); Monocytes # (Auto) 0 K/mcL (0.1-0.9); Monocytes % (Auto) 0.6 % (1.0-12.0); Platelet Count 153 K/mcL (140-440); RBC 3.41 M/mcL (4.50-5.90); Red Cell Distribution Width 15.4 % (11.5-14.5)
[2017-09-18] MEDS: MAGNESIUM OXIDE 400 MG TABLET PO SCH ×2 (08:30→21:00)
[2017-09-18] MEDS: HEPARIN 5,000 UNIT/ML VIAL SQ SCH ×2 (08:30→21:00)
[2017-09-18] MEDS: ASPIRIN 81 MG TAB.CHEW PO SCH (08:32)
[2017-09-18] MEDS: FERROUS SULFATE 325 MG TABLET PO SCH (08:32)
[2017-09-18] MEDS: CLOPIDOGREL 75 MG TABLET PO SCH (08:32)
[2017-09-18 08:48] LABS: ALT/SGPT 15 U/l (0-40); Albumin 3.4 gm/dL (3.2-5.2); Albumin/Globulin Ratio 1.1 (1.0-2.3); Alkaline Phosphatase 45 U/L (39-117); Bilirubin,Direct < 0.2 mg/dL (0.0-0.3); Blood Urea Nitrogen 75 mg/dl (8-23); Gamma Glutamyl Transpeptidase 22 U/L (8-61); Uric Acid 10.5 mg/dL (2.5-8.0)
[2017-09-18] MEDS ORDERED: POTASSIUM CHLORIDE 20 MEQ PACKET PO ONE (09:25)
[2017-09-18] MEDS ORDERED: IPRATROPIUM/ALBUTEROL 3 ML AMPUL.NEB NEB PRN (09:25)
[2017-09-18] MEDS ORDERED: TOLNAFTATE TOPICAL PRN (09:25)
[2017-09-18] MEDS: FINASTERIDE 5 MG TABLET PO SCH (09:51)
[2017-09-18] MEDS: PREGABALIN 75 MG CAPSULE PO SCH ×2 (09:51→21:00)
[2017-09-18] MEDS: BUDESONIDE INH SCH (09:52)
[2017-09-18] MEDS: FORMOTEROL FUMARATE INH SCH (09:52)
[2017-09-18] MEDS: AZITHROMYCIN 500 MG in DEXTROSE 5% IN WATER 250 ML IV SCH (11:51)
[2017-09-18] MEDS: TIOTROPIUM BROMIDE 18 MCG INHALANT INH SCH (15:44)
[2017-09-18] MEDS: VANCOMYCIN 1,500 MG in 0.9 % SODIUM CHLORIDE 500 ML IV SCH (16:40)
[2017-09-18] MEDS: POTASSIUM CHLORIDE 20 MEQ TABLET PO SCH (16:40)
--- NOTE | 2017-09-18 20:53 | Internal Med Progress Note ---
Medical - PN: Subj Patient information: Note initiated : 09/18/17 at 8:51 pm Service Date, if different from initiated Date: [] Patient: Carmelo Stewatr 72 y/o M admitted on 09/17/17 for Weakness/Pneumonia. Chief Complaint: [] Interval history: Mr. Stewart is a 72 year old Male with multiple medical issues, [place] the [place] after being confused and drowsy since this AM, no other history available, apart from possible fall yesterday In the ER pt was solmenent and only wakes up to verbal of touch, does not open eyes spontaneously, he tries to answer questions but unable to provide any meaninful input. I am aware that the ER provider tried to ask him if he would like to be cardioverted, and he noted yes, I doubt if he comphreneds enough to provide any meaningful answer to that question. Workup in the ER, showed stable vital signs. WBC count of 9.0, no left shift, hemoglobin 9.6 platelets 161. Sodium 143, potassium 3.3, chloride 91, bicarbonate 39 elevated from before, BUN is 102 elevated from baseline for him 60-70, creatinine is 2.2, glucose 243. Calcium is 11.3 elevated. Lactic acid 1.4, troponin 0 0.18 patient has had chronic elevation of troponins in the past but not this high usually highest was 0.1 to a couple of years ago. Patient has CK and CK-MB levels which are normal. BNP is 1861. Ammonia level 17. ABG shows pH of 7.5 to-PCO2 58-p.o. 203. Chest x-ray shows possible pneumonia in the right base, EKG shows sinus rhythm few PACs, left axis left anterior vascular block, T-wave inversions in the lateral leads, QS patterns V1 V2, Head CT neg. His case was reviewed by Investigative Reporter Dr Butt, who noted that his rise in troponin is non cardiac in nature, and did not want pt to be transferred to higher center. 09/18 Pt seen examined, no acute ovenright issues, mental status better, he is more agitated and angry, rude with the nursing staff, it seems this is his baseilne status. trop trended up, and is now trending down, he did have afib with rvr which may have contributed to some rise in trop. repeat again in AM continue with gentole hydration and see how he does in AM, Pertinent ROS: Denies headache, dizziness Denies chest pain, palpitations Denies cough or shortness of breath Denies abdominal pain, nausea or vomiting. - Constitutional Vitals: Vital Signs Temp Pulse Resp BP Pulse Ox 97.7 F 80 20 130/91 96 09/18/17 16:00 09/18/17 20:08 09/18/17 20:08 09/18/17 16:00 09/18/17 20:08 Period Temp Pulse Resp BP Sys/Mcneill Pulse Ox Last 24 Hr 97.2 F-99.1 F 42-131 12-25 118-165/51-116 91-96 Intake and Output 09/18/17 09/18/17 09/18/17 05:59 13:59 21:59 Intake Total 200 / 200 790 / 790 Output Total 1900 / 1900 1500 / 1500 Balance -1700 / -1700 790 / 790 -1500 / -1500 Weight 247 lb Patient Weight 09/19/17 05:59 Weight 247 lb Intake & Output: Intake & Output 09/18/17 09/18/17 09/18/17 05:59 13:59 21:59 Intake Total 200 / 200 790 / 790 Output Total 1900 / 1900 1500 / 1500 Balance -1700 / -1700 790 / 790 -1500 / -1500 Weight 247 lb Intake: IV 50 / 50 50 / 50 Zosyn 3.375 gm In Dextrose 5% 50 / 50 50 / 50 in Water 50 ml @ 100 mls/hr IV Q8H [facility] Rx#:[id number] Oral 150 / 150 740 / 740 Output: Urine Catheter Amount 1900 / 1900 1500 / 1500 Other: Meal Lunch Percent of Meal Consumed 50% Stool Size Large Stool Color Brown Blood Tinged Stool Consistency Dry and Hard # of times incontinent of 1 Bowels Exam: Constitutional; Afebrile, cooperative, alert, not in distress. obese individual Eyes- No icterus, , No periorbital swelling Ears- Ext ear normal, hearing normal to conversation. Neck- Midline trachea, supple Respiratory system: Air Entry equal on both sides, No crackles or wheezing, no rhonchi. ant exam only CVS- Rate rhythm regular, S1,S2 heard, no gallop, no rub. Abdomen- Soft nontender abdomen, no organomegaly, no tenderness, no guarding or rigidity, COMPLAINT ADJUSTER- AOOx3, moving all extremities, no gross focal deficit noted. Medical - PN: Obj Da - Labs CBC & Chem 7: 09/18/17 07:47 09/18/17 07:47 Labs: Abnormal Lab Results 09/18/17 09/18/17 09/18/17 09:36 07:47 07:47 RBC Hgb Hct RDW Gran % Lymph % (Auto) [place] % (Auto) Lymph # (Auto) [place] # (Auto) Potassium 2.9 L* Chloride Carbon Dioxide 34 H BUN 75 H Creatinine 1.9 H Glucose 326 H Uric Acid 10.5 H Calcium Phosphorus 4.6 H Troponin T 0.39 H* 0.41 H* NT-Pro-B Natriuret Pep Triglycerides 162 H 09/18/17 09/17/17 09/17/17 07:47 12:18 08:54 RBC 3.41 L Hgb 9.3 L Hct 28.3 L RDW 15.4 H Gran % 91.5 H Lymph % (Auto) 7.9 L [place] % (Auto) 0.6 L Lymph # (Auto) 0.7 L [place] # (Auto) 0 L Potassium Chloride Carbon Dioxide BUN Creatinine Glucose Uric Acid Calcium Phosphorus Troponin T 0.23 H* 0.18 H* NT-Pro-B Natriuret Pep Triglycerides 09/17/17 09/17/17 08:54 08:54 RBC 3.48 L Hgb 9.6 L Hct 28.5 L RDW 15.8 H Gran % Lymph % (Auto) [place] % (Auto) Lymph # (Auto) [place] # (Auto) Potassium Chloride 91 L Carbon Dioxide 39 H BUN 102 H* Creatinine 2.2 H Glucose 243 H Uric Acid Calcium 11.3 H Phosphorus Troponin T NT-Pro-B Natriuret Pep 1861.0 H Triglycerides Meds: Medications Acetaminophen (Tylenol) 650 mg PO Q6HP PRN PRN Reason: PAIN/FEVER > 101 Last Admin: 09/18/17 08:30 Dose: 650 mg Albuterol/Ipratropium (Duoneb) 3 ml NEB Q4HRT CRYSTAL Last Admin: 09/18/17 20:00 Dose: 3 ml Albuterol/Ipratropium (Duoneb) 3 ml NEB QIDP PRN PRN Reason: Shortness Of Breath Aspirin (Aspirin) 81 mg PO DAILY [facility] Last Admin: 09/18/17 08:32 Dose: 81 mg Atorvastatin Calcium (Lipitor) 5 mg PO HS [facility] Last Admin: 09/17/17 21:32 Dose: 5 mg Clopidogrel Bisulfate (Plavix) 75 mg PO QAM [facility] Last Admin: 09/18/17 08:32 Dose: 75 mg Dextrose (Dextrose 50%) 0 ml IV UD PRN PRN Reason: Hypoglycemia Diagnostic Test (Pha) (Accu-Chek) 1 each FS ACHS [facility] Last Admin: 09/18/17 17:45 Dose: 1 each Docusate Sodium (Colace) 100 mg PO BID PRN PRN Reason: Constipation Last Admin: 09/18/17 09:51 Dose: 100 mg Ferrous Sulfate (Ferrous Sulfate) 325 mg PO QDAY [facility] Last Admin: 09/18/17 08:32 Dose: 325 mg Finasteride (Proscar) 5 mg PO DAILY [facility] Last Admin: 09/18/17 09:51 Dose: 5 mg Glucose (Insta-Glucose) 15 gm PO PRN PRN PRN Reason: Hypoglycemia Heparin Sodium (Porcine) (Heparin) 5,000 unit SQ Q12 [facility] Last Admin: 09/18/17 08:30 Dose: 5,000 unit Hydralazine HCl (Apresoline) 10 mg PO TID PRN PRN Reason: if BP is more than 160/90 Piperacillin Sod/Tazobactam (Sod 3.375 gm/ Dextrose) 50 mls @ 100 mls/hr IV Q8H [facility] Last Admin: 09/18/17 15:44 Dose: 100 mls/hr Sodium Chloride (Sodium Chloride 0.9%) 1,000 mls @ 84 mls/hr IV .[id number] [facility] Stop: 09/19/17 01:55 Last Admin: 09/18/17 02:51 Dose: Not Given Azithromycin 500 mg/ Dextrose 250 mls @ 250 mls/hr IV Q24H [facility] Stop: 09/19/17 15:12 Last Admin: 09/18/17 11:51 Dose: 250 mls/hr Vancomycin HCl 1,500 mg/ (Sodium Chloride) 500 mls @ 333.333 mls/hr IV Q24H [facility] Last Admin: 09/18/17 16:40 Dose: 333.333 mls/hr Insulin Human Lispro (Humalog) 0 unit SQ ACHS [facility] PRN Reason: Protocol Last Admin: 09/18/17 18:14 Dose: 6 unit Levothyroxine Sodium (Synthroid) 125 mcg PO HS [facility] Last Admin: 09/17/17 21:25 Dose: 125 mcg Magnesium Oxide (Magnesium Oxide) 400 mg PO BID [facility] Last Admin: 09/18/17 08:30 Dose: 400 mg Methylprednisolone Sodium Succinate (Solu-Medrol) 62.5 mg IV Q8 [facility] Last Admin: 09/18/17 15:43 Dose: 62.5 mg Naloxone HCl (Narcan) 0.1 mg IV Q2MIN PRN PRN Reason: Opiate Reversal Ondansetron HCl (Zofran) 4 mg IV Q4HP PRN PRN Reason: Nausea And Vomiting Budesonide/Formoterol Fumarate [Symbicort 80-4.5 Inh 1 dose INH DAILY [facility] Last Admin: 09/18/17 09:52 Dose: Not Given Tolnaftate [ (Antifungal] Powder) 1 dose TOPICAL PRN PRN PRN Reason: Rash Potassium Chloride (Kdur) 20 meq PO BIDCC [facility] Last Admin: 09/18/17 16:40 Dose: 20 meq Pregabalin (Lyrica) 75 mg PO BID [facility] Last Admin: 09/18/17 09:51 Dose: 75 mg Sodium Chloride (Saline Flush) 10 ml IV Q8 [facility] Last Admin: 09/18/17 15:43 Dose: Not Given Tamsulosin HCl (Flomax) 0.4 mg PO [facility] Last Admin: 09/17/17 21:25 Dose: 0.4 mg Tiotropium [place] (Spiriva) 18 mcg INH QDAY [facility] Last Admin: 09/18/17 15:44 Dose: Not Given Vancomycin HCl (Vancomycin Per Pharmacy) 1 order IV UD [facility] Medical - PN: A/P - Time Spent With Patient Total time spent is greater than 50% in coordination of care (as documented) at patient's floor/unit and/or counseling patient: - Narrative A/P Narrative: A/P Acute encephalopathy: much iimproved likely uremic encephalopathy, improving Acute worsening of BUN: It seems pt was getting diuretics for his lower extremity edema, bun baseline around 60, now 102, this could be causing some encephalopathy. HOld diureitcs, IV fluids for now, and monitor for response, clinically improving. pneumonia: reported on X ray, but labs and exam is not suggestive of same. continue broad spectrum abx for now, microbiology eng, pt not cooperating for CT will hold off Copd exacerbation/ Reactive airway disease: mild wheezing on exam on admission, which has resolved, on duonebs, azithromax and solumedrol Abdominal tenderness: h/o cholecystectomy, pt did not cooperate with Ct, no pain in abdomen today, non tender exam DM: Sliding scale insulin for glucose control hold oral meds CAD/HTN/HLD: Resume home meds as appropriate CKD: Creat around baseline, monitor and see how he does with fluids, if worsens get nephrology help, try to get a trejo Elevated Trop and EKG changes: likely type 2 MN due to other etiologies, monitor for now, tred trop. MOrbid obesity- out pt management. lower extremity venous stasis: does not look infected, wound care consult, antibiotics for now; h/o chf: hold diuretics for now Chr pain: DJD, on fentanyl patch, oxycodone,. hold same for now DVT hep sq Diet cardiac, renal diabetic diet DNR code status as per post, pt is encephalopathic and I cannot say that he was able to make any informed decision at this time. hypokalemia: replace K Medical - PN: Qual - VTE Deep Vein Thrombosis/Pulmonary Embolism Present on Admission: No
[2017-09-18] MEDS: LEVOTHYROXINE 125 MCG TABLET PO SCH (21:00)
[2017-09-18] MEDS: ATORVASTATIN 20 MG TABLET PO SCH (21:00)
[2017-09-18] MEDS: TAMSULOSIN 0.4 MG CAPSULE PO SCH (21:03)
[2017-09-18] MEDS ORDERED: LORazepam 2 MG/ML VIAL ONE (21:32)
[2017-09-19] MEDS: 0.9 % SODIUM CHLORIDE 1,000 ML IV SCH (00:05)
[2017-09-19] MEDS ORDERED: LORazepam 2 MG/ML VIAL ONE (01:25)
[2017-09-19] MEDS: IPRATROPIUM/ALBUTEROL 3 ML AMPUL.NEB NEB SCH ×6 (02:47→23:27)
[2017-09-19] MEDS ORDERED: METOPROLOL TARTRATE 5 MG/5 ML VIAL IV ONE ×2 (03:17→18:12)
[2017-09-19] MEDS: METOPROLOL TARTRATE 5 MG/5 ML VIAL IV SCH (04:12)
[2017-09-19] MEDS: INSULIN LISPRO 1 UNIT/0.01 ML UNIT SQ SCH ×5 (04:17→20:26)
[2017-09-19] MEDS: methylPREDNISolone SOD SUCC 125 MG/2 ML VIAL IV SCH (06:01)
[2017-09-19] MEDS: PIPERACILLIN SODIUM/TAZOBACTAM 3.375 GM in DEXTROSE 5% IN WATER 50 ML IV SCH ×3 (06:02→21:46)
[2017-09-19] MEDS: 0.9 % SODIUM CHLORIDE 10 ML SYRINGE IV SCH ×3 (06:02→21:46)
[2017-09-19 06:05] LABS: Basophils # (Auto) 0 K/mcL (0.0-0.3); Basophils % (Auto) 0 % (0.0-2.0); Eosinophils # (Auto) 0 K/mcL (0.0-0.7); Eosinophils % (Auto) 0 % (0.0-7.0); Granulocytes % (Auto) 93.5 % (38.0-78.0); Lymphocytes # (Auto) 0.5 K/mcL (1.5-4.8); Lymphocytes % (Auto) 3.5 % (15.5-49.0); Mean Cell Volume 83.3 fL (80.0-100.0); Mean Corpuscular Hemoglobin 26.6 pg (26.0-34.0); Monocytes # (Auto) 0.4 K/mcL (0.1-0.9); Platelet Count 157 K/mcL (140-440); RBC 3.56 M/mcL (4.50-5.90); Red Cell Distribution Width 15.9 % (11.5-14.5)
[2017-09-19 06:18] LABS: ALT/SGPT 17 U/l (0-40); Albumin 3.4 gm/dL (3.2-5.2); Alkaline Phosphatase 47 U/L (39-117); Bilirubin,Direct < 0.2 mg/dL (0.0-0.3); Blood Urea Nitrogen 66 mg/dl (8-23); Gamma Glutamyl Transpeptidase 24 U/L (8-61); Uric Acid 8.5 mg/dL (2.5-8.0)
[2017-09-19] MEDS ORDERED: 0.45 % SODIUM CHLORIDE 1,000 ML IV SCH (07:15)
--- NOTE | 2017-09-19 08:35 | XRay Report ---
INDICATION: Dyspnea TECHNIQUE: AP chest x-ray,portable COMPARISON: 09/17/2017, 09/17/2017, 04/09/2016 FINDINGS:Previous median sternotomy. Persistent cardiomegaly. No focal pulmonary parenchymal infiltrate or mass. No pulmonary edema. No pulmonary congestion. No significant interval change IMPRESSION: 1. Cardiomegaly. No pulmonary edema 2. No acute parenchymal infiltrate. No interval change since 09/17/2017 Interpreted and Authenticated by: Mo Dotson 09/19/17
[2017-09-19] MEDS ORDERED: METOPROLOL TARTRATE 25 MG TABLET PO SCH (09:00)
[2017-09-19] MEDS: INSULIN GLARGINE, HUMAN 1 UNIT/0.01 ML SQ SCH ×2 (09:17→20:26)
[2017-09-19] MEDS: POTASSIUM CHLORIDE 20 MEQ TABLET PO SCH ×2 (09:19→17:40)
[2017-09-19] MEDS: HEPARIN 5,000 UNIT/ML VIAL SQ SCH ×2 (09:19→20:25)
[2017-09-19] MEDS: AZITHROMYCIN 500 MG in DEXTROSE 5% IN WATER 250 ML IV SCH (09:19)
[2017-09-19] MEDS: MAGNESIUM OXIDE 400 MG TABLET PO SCH ×2 (09:20→20:25)
[2017-09-19] MEDS: predniSONE 20 MG TABLET PO SCH (09:20)
[2017-09-19] MEDS: CLOPIDOGREL 75 MG TABLET PO SCH (09:20)
[2017-09-19] MEDS: FERROUS SULFATE 325 MG TABLET PO SCH (09:20)
[2017-09-19] MEDS: ASPIRIN 81 MG TAB.CHEW PO SCH (09:20)
[2017-09-19] MEDS: TIOTROPIUM BROMIDE 18 MCG INHALANT INH SCH (09:39)
[2017-09-19] MEDS: BUDESONIDE INH SCH (09:39)
[2017-09-19] MEDS: FORMOTEROL FUMARATE INH SCH (09:39)
[2017-09-19] MEDS: PREGABALIN 75 MG CAPSULE PO SCH ×2 (09:47→20:36)
[2017-09-19] MEDS: FINASTERIDE 5 MG TABLET PO SCH (09:47)
--- NOTE | 2017-09-19 09:51 | General Surgery Progress Note ---
Subjective Narrative: Note initiated : 09/19/17 at 9:46 am Service Date, if different from initiated Date: [] Patient: Carmelo Stewart 72 y/o M admitted on 09/17/17 for Weakness/Pneumonia. Chief Complaint: []Patient seen on rounds with Dr. Puga and nursing staff. NO over nite events or acute changes. NOW OOB in chair, Feet on floor. Objective Temp Pulse Resp BP Pulse Ox 98.3 F 91 H 18 157/76 94 09/19/17 07:31 09/19/17 04:22 09/19/17 07:31 09/19/17 07:31 09/19/17 07:31 Tachycardia improving Unifocal PVCs Baseline. Talking with rounding staff. NO distress. Both legs are clean and dry. 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 No evidence of calf tenderness, acute infection, purulence or cellulitis. Toe nails are PWD and capillary refill is around 3 sec. - Additional Data Intake & Output - Last 24 hours: Intake & Output 09/17/17 09/18/17 09/19/17 09/20/17 05:59 05:59 05:59 05:59 Intake Total 1500 / 1500 2180 / 2180 715 / 715 Output Total 2950 / 2950 3550 / 3550 Balance -1450 / -1450 -1370 / -1370 715 / 715 Weight 247 lb 245 lb 6.4 oz - Labs 09/19/17 04:10 09/19/17 04:10 Diabetes panel 09/19/17 Range/Units 04:10 Sodium 147 H (133-145) mmol/L Potassium 3.5 (3.3-5.1) mmol/L Chloride 99 (96-108) mmol/L Carbon Dioxide 31 H (22-30) mmol/L BUN 66 H (8-23) mg/dl Creatinine 2.0 H (0.7-1.2) mg/dl Glucose 364 H (70-105) mg/dL Calcium 10.0 (8.6-10.4) mg/dl AST 31 (0-37) U/l ALT 17 (0-40) U/l Alkaline Phosphatase 47 (39-117) U/L Total Protein 6.7 (5.9-8.4) gm/dL Albumin 3.4 (3.2-5.2) gm/dL Triglycerides 169 H (<150) mg/dl Calcium panel 09/19/17 Range/Units 04:10 Calcium 10.0 (8.6-10.4) mg/dl Phosphorus 3.2 (2.7-4.5) mg/dL Albumin 3.4 (3.2-5.2) gm/dL Pituitary panel 09/19/17 Range/Units 04:10 Sodium 147 H (133-145) mmol/L Potassium 3.5 (3.3-5.1) mmol/L Chloride 99 (96-108) mmol/L Carbon Dioxide 31 H (22-30) mmol/L BUN 66 H (8-23) mg/dl Creatinine 2.0 H (0.7-1.2) mg/dl Glucose 364 H (70-105) mg/dL Calcium 10.0 (8.6-10.4) mg/dl Adrenal panel 09/19/17 Range/Units 04:10 Sodium 147 H (133-145) mmol/L Potassium 3.5 (3.3-5.1) mmol/L Chloride 99 (96-108) mmol/L Carbon Dioxide 31 H (22-30) mmol/L BUN 66 H (8-23) mg/dl Creatinine 2.0 H (0.7-1.2) mg/dl Glucose 364 H (70-105) mg/dL Calcium 10.0 (8.6-10.4) mg/dl Total Bilirubin 0.2 (0.0-1.0) mg/dL AST 31 (0-37) U/l ALT 17 (0-40) U/l Alkaline Phosphatase 47 (39-117) U/L Total Protein 6.7 (5.9-8.4) gm/dL Albumin 3.4 (3.2-5.2) gm/dL Assessment and Plan (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 NO evidence of acute infection or cellulitis. Status: Chronic Current Visit: Yes - Time Spent With Patient Assessment: Stable and progressing well from wound care point of view. Plan: Wash and clean both legs from knees down to toes with chlorhexidine solution. Dry with wash cloth. Apply moisturizer skin repair cream over the scales and both legs from knee to toes ONCE a day. Leave open to air. following this patient whilst still hospitalized. less than 15 minutes
[2017-09-19] MEDS ORDERED: fentaNYL 75 MCG PATCH TD SCH (12:00)
--- NOTE | 2017-09-19 13:56 | Internal Med Progress Note ---
Medical - PN: Subj Patient information: Note initiated : 09/19/17 at 1:54 pm Service Date, if different from initiated Date: [] Patient: Carmelo Stewart 72 y/o M admitted on 09/17/17 for Weakness/Pneumonia. Chief Complaint: [] Interval history: Mr. Stewart is a 72 year old Male with multiple medical issues, [place] the [place] after being confused and drowsy since this AM, no other history available, apart from possible fall yesterday In the ER pt was solmenent and only wakes up to verbal of touch, does not open eyes spontaneously, he tries to answer questions but unable to provide any meaninful input. I am aware that the ER provider tried to ask him if he would like to be cardioverted, and he noted yes, I doubt if he comphreneds enough to provide any meaningful answer to that question. Workup in the ER, showed stable vital signs. WBC count of 9.0, no left shift, hemoglobin 9.6 platelets 161. Sodium 143, potassium 3.3, chloride 91, bicarbonate 39 elevated from before, BUN is 102 elevated from baseline for him 60-70, creatinine is 2.2, glucose 243. Calcium is 11.3 elevated. Lactic acid 1.4, troponin 0 0.18 patient has had chronic elevation of troponins in the past but not this high usually highest was 0.1 to a couple of years ago. Patient has CK and CK-MB levels which are normal. BNP is 1861. Ammonia level 17. ABG shows pH of 7.5 to-PCO2 58-p.o. 203. Chest x-ray shows possible pneumonia in the right base, EKG shows sinus rhythm few PACs, left axis left anterior vascular block, T-wave inversions in the lateral leads, QS patterns V1 V2, Head CT neg. His case was reviewed by [employer] Dr Butt, who noted that his rise in troponin is non cardiac in nature, and did not want pt to be transferred to higher center. 09/18 Pt seen examined, no acute ovenright issues, mental status better, he is more agitated and angry, rude with the nursing staff, it seems this is his baseilne status. trop trended up, and is now trending down, he did have afib with rvr which may have contributed to some rise in trop. repeat again in AM continue with gentole hydration and see how he does in AM, 09/19 pt seen examined, labs show leucocytosis but improving bun pt mental status is better, but keeps yelling help me all the time, whenever there is no one in the room he gets anxious will resume his home fentanyl dose and see how he does his exam had shantelle basilar crackles, CXR is neg for fluid overload change ns to half ns given hypernatremia on labs today continue duonebs and steroids ans he still has some wheeze on exam continue abx for possible hcap pna goes in intermittent afib with rvr,started on metoprolol 25mg bid Pertinent ROS: Denies headache, dizziness Denies chest pain, palpitations Denies cough or shortness of breath Denies abdominal pain, nausea or vomiting. - Constitutional Vitals: Vital Signs Temp Pulse Resp BP Pulse Ox 97.5 F 102 H 19 153/81 96 09/19/17 12:00 09/19/17 08:00 09/19/17 12:09 09/19/17 12:00 09/19/17 12:00 Period Temp Pulse Resp BP Sys/Mcneill Pulse Ox Last 24 Hr 97.5 F-99.0 F 54-117 18-27 101-176/52-116 88-96 Intake and Output 09/18/17 09/19/17 09/19/17 21:59 05:59 13:59 Intake Total 790 / 790 350 / 350 1195 / 1195 Output Total 2450 / 2450 1100 / 1100 Balance -1660 / -1660 -750 / -750 1195 / 1195 Weight 245 lb 6.4 oz Intake & Output: Intake & Output 09/18/17 09/19/17 09/19/17 21:59 05:59 13:59 Intake Total 790 / 790 350 / 350 1195 / 1195 Output Total 2450 / 2450 1100 / 1100 Balance -1660 / -1660 -750 / -750 1195 / 1195 Weight 245 lb 6.4 oz Intake: IV 550 / 550 50 / 50 715 / 715 Zosyn 3.375 gm In Dextrose 5% 50 / 50 50 / 50 50 / 50 in Water 50 ml @ 100 mls/hr IV Q8H [facility] Rx#:[id number] Vancomycin 1,500 mg In Sodium 500 / 500 Chloride 0.9% 500 ml @ 333.333 mls/hr IV Q24H [facility] Rx#: [id number] Oral 240 / 240 300 / 300 480 / 480 Output: Urine Catheter Amount 2450 / 2450 1100 / 1100 Other: Meal Dinner Sherbert Lunch Percent of Meal Consumed 25% 100% 50% Feeding Ability Assist with Tray Set Up Assist with Tray Set Up Assist with Tray Set Up Stool Size Smear Smear Moderate Stool Color Brown Brown Brown Stool Consistency Dry and Hard Dry and Hard Soft # Bowel Movements 1 # of times incontinent of 2 1 Bowels Exam: Constitutional; Afebrile, intermittently cooperative, alert, not in distress. morbidly obese Eyes- No icterus, , No periorbital swelling Ears- Ext ear normal, hearing normal to conversation. Neck- Midline trachea, supple Respiratory system: Air Entry equal on both sides, bilateral basilar crackles, prolonged exp phase and still has some wheezing. CVS- Rate tachycardic, rhythm ir regular, S1,S2 heard, no gallop, no rub. Abdomen- Soft nontender abdomen, no organomegaly, no tenderness, no guarding or rigidity, VOCATIONAL GUIDANCE COUNSELOR- AOOx2, moving all extremities, no gross focal deficit noted. , Medical - PN: Obj Da - Labs CBC & Chem 7: 09/19/17 04:10 09/19/17 04:10 Labs: Abnormal Lab Results 09/19/17 09/19/17 09/19/17 04:15 04:10 04:10 WBC 13.3 H RBC 3.56 L Hgb 9.5 L Hct 29.7 L RDW 15.9 H Gran % 93.5 H Lymph % (Auto) 3.5 L [place] % (Auto) Gran # 12.5 H Lymph # (Auto) 0.5 L [place] # (Auto) Sodium 147 H Potassium Chloride Carbon Dioxide 31 H Anion Gap 17.0 H BUN 66 H Creatinine 2.0 H Glucose 364 H Uric Acid 8.5 H Calcium Phosphorus Lactate Dehydrogenase 307 H Troponin T 0.22 H* NT-Pro-B Natriuret Pep Triglycerides 169 H 09/18/17 09/18/17 09/18/17 09:36 07:47 07:47 WBC RBC Hgb Hct RDW Gran % Lymph % (Auto) [place] % (Auto) Gran # Lymph # (Auto) [place] # (Auto) Sodium Potassium 2.9 L* Chloride Carbon Dioxide 34 H Anion Gap BUN 75 H Creatinine 1.9 H Glucose 326 H Uric Acid 10.5 H Calcium Phosphorus 4.6 H Lactate Dehydrogenase Troponin T 0.39 H* 0.41 H* NT-Pro-B Natriuret Pep Triglycerides 162 H 09/18/17 09/17/17 09/17/17 07:47 12:18 08:54 WBC RBC 3.41 L Hgb 9.3 L Hct 28.3 L RDW 15.4 H Gran % 91.5 H Lymph % (Auto) 7.9 L [place] % (Auto) 0.6 L Gran # Lymph # (Auto) 0.7 L [place] # (Auto) 0 L Sodium Potassium Chloride Carbon Dioxide Anion Gap BUN Creatinine Glucose Uric Acid Calcium Phosphorus Lactate Dehydrogenase Troponin T 0.23 H* 0.18 H* NT-Pro-B Natriuret Pep Triglycerides 09/17/17 09/17/17 08:54 08:54 WBC RBC 3.48 L Hgb 9.6 L Hct 28.5 L RDW 15.8 H Gran % Lymph % (Auto) [place] % (Auto) Gran # Lymph # (Auto) [place] # (Auto) Sodium Potassium Chloride 91 L Carbon Dioxide 39 H Anion Gap BUN 102 H* Creatinine 2.2 H Glucose 243 H Uric Acid Calcium 11.3 H Phosphorus Lactate Dehydrogenase Troponin T NT-Pro-B Natriuret Pep 1861.0 H Triglycerides Meds: Medications Acetaminophen (Tylenol) 650 mg PO Q6HP PRN PRN Reason: PAIN/FEVER > 101 Last Admin: 09/18/17 08:30 Dose: 650 mg Albuterol/Ipratropium (Duoneb) 3 ml NEB Q4HRT [facility] Last Admin: 09/19/17 11:29 Dose: Not Given Albuterol/Ipratropium (Duoneb) 3 ml NEB QIDP PRN PRN Reason: Shortness Of Breath Aspirin (Aspirin) 81 mg PO DAILY [facility] Last Admin: 09/19/17 09:20 Dose: 81 mg Atorvastatin Calcium (Lipitor) 5 mg PO HS [facility] Last Admin: 09/18/17 21:00 Dose: 5 mg Clopidogrel Bisulfate (Plavix) 75 mg PO QAM [facility] Last Admin: 09/19/17 09:20 Dose: 75 mg Dextrose (Dextrose 50%) 0 ml IV UD PRN PRN Reason: Hypoglycemia Diagnostic Test (Pha) (Accu-Chek) 1 each FS ACHS [facility] Last Admin: 09/19/17 11:37 Dose: 1 each Docusate Sodium (Colace) 100 mg PO BID PRN PRN Reason: Constipation Last Admin: 09/18/17 09:51 Dose: 100 mg Fentanyl (Duragesic) 75 mcg TD Q72H [facility] Last Admin: 09/19/17 13:37 Dose: 75 mcg Ferrous Sulfate (Ferrous Sulfate) 325 mg PO QDAY [facility] Last Admin: 09/19/17 09:20 Dose: 325 mg Finasteride (Proscar) 5 mg PO DAILY [facility] Last Admin: 09/19/17 09:47 Dose: 5 mg Glucose (Insta-Glucose) 15 gm PO PRN PRN PRN Reason: Hypoglycemia Heparin Sodium (Porcine) (Heparin) 5,000 unit SQ Q12 [facility] Last Admin: 09/19/17 09:19 Dose: 5,000 unit Hydralazine HCl (Apresoline) 10 mg PO TID PRN PRN Reason: if BP is more than 160/90 Piperacillin Sod/Tazobactam (Sod 3.375 gm/ Dextrose) 50 mls @ 100 mls/hr IV Q8H [facility] Last Infusion: 09/19/17 06:42 Dose: Infused Azithromycin 500 mg/ Dextrose 250 mls @ 250 mls/hr IV Q24H [facility] Stop: 09/19/17 15:12 Last Admin: 09/19/17 09:19 Dose: 250 mls/hr Vancomycin HCl 1,500 mg/ (Sodium Chloride) 500 mls @ 333.333 mls/hr IV Q24H [facility] Last Infusion: 09/18/17 18:15 Dose: Infused Sodium Chloride (Sodium Chloride 0.45%) 1,000 mls @ 100 mls/hr IV .Q10H [facility] Stop: 09/19/17 17:14 Last Admin: 09/19/17 09:22 Dose: 100 mls/hr Insulin Glargine (Lantus) 15 unit SQ BID [facility] Last Admin: 09/19/17 09:17 Dose: 15 unit Insulin Human Lispro (Humalog) 0 unit SQ ACHS [facility] PRN Reason: Protocol Last Admin: 09/19/17 11:47 Dose: 8 unit Levothyroxine Sodium (Synthroid) 125 mcg PO HS [facility] Last Admin: 09/18/17 21:00 Dose: 125 mcg Lorazepam (Ativan) 1 mg IV Q4-6HP PRN PRN Reason: ANXIETY/SEDATION Magnesium Oxide (Magnesium Oxide) 400 mg PO BID [facility] Last Admin: 09/19/17 09:20 Dose: 400 mg Metoprolol Tartrate (Lopressor) 25 mg PO BID [facility] Last Admin: 09/19/17 09:20 Dose: 25 mg Naloxone HCl (Narcan) 0.1 mg IV Q2MIN PRN PRN Reason: Opiate Reversal Ondansetron HCl (Zofran) 4 mg IV Q4HP PRN PRN Reason: Nausea And Vomiting Budesonide/Formoterol Fumarate [Symbicort 80-4.5 Inh 1 dose INH DAILY [facility] Last Admin: 09/19/17 09:39 Dose: Not Given Tolnaftate [ (Antifungal] Powder) 1 dose TOPICAL PRN PRN PRN Reason: Rash [facility] Admin: 09/19/17 09:19 Dose: 20 meq Prednisone (Prednisone) 40 mg PO [facility] Stop: 09/24/17 07:59 Last Admin: 09/19/17 09:20 Dose: 40 mg Pregabalin (Lyrica) 75 mg PO BID [facility] Last Admin: 09/19/17 09:47 Dose: 75 mg Sodium Chloride (Saline Flush) 10 ml IV Q8 [facility] Last Admin: 09/19/17 13:39 Dose: Not Given Tamsulosin HCl (Flomax) 0.4 mg PO [facility] Last Admin: 09/18/17 21:03 Dose: 0.4 mg Tiotropium [place] (Spiriva) 18 mcg INH QDAY [facility] Last Admin: 09/19/17 09:39 Dose: Not Given Vancomycin HCl (Vancomycin Per Pharmacy) 1 order IV [facility] [place] Medical - PN: A/P - Time Spent With Patient Total time spent is greater than 50% in coordination of care (as documented) at patient's floor/unit and/or counseling patient: - Narrative A/P Narrative: A/P Acute encephalopathy: much iimproved likely uremic encephalopathy, improving with hydration. Acute worsening of BUN: It seems pt was getting diuretics for his lower extremity edema, bun baseline around 60, now 102, this could be causing some encephalopathy. HOld diureitcs, IV fluids for now, and monitor for response, clinically improving. change fljids to half NS pneumonia: reported on X ray, but labs and exam is not suggestive of same. continue broad spectrum abx for now, microbiology eng, pt not cooperating for CT will hold off Copd exacerbation/ Reactive airway disease: mild wheezing on exam on admission, still present today, continue on duonebs, azithromax and prednisone (changed from solumedrol) Abdominal tenderness: h/o cholecystectomy, pt did not cooperate with Ct, no pain in abdomen today, non tender exam DM: Sliding scale insulin for glucose control hold oral meds, glucose high, lantus added today to his regime. CAD/HTN/HLD: Resume home meds CKD: Creat around baseline, monitor and see how he does with fluids, if worsens get nephrology help Elevated Trop and EKG changes: likely type 2 GA due to other etiologies, monitor for now, tred trop. donw trending tropoinin MOrbid obesity- out pt management. lower extremity venous stasis: does not look infected, wound care consult, antibiotics for now; h/o chf: hold diuretics for now Chr pain: DJD, on fentanyl patch, oxycodone,. resume fentanyl, may help with his agitation. DVT hep sq Diet cardiac, renal diabetic diet DNR code status as per post, Medical - PN: Qual - VTE Deep Vein Thrombosis/Pulmonary Embolism Present on Admission: No
[2017-09-19] MEDS: VANCOMYCIN 1,500 MG in 0.9 % SODIUM CHLORIDE 500 ML IV SCH (17:29)
[2017-09-19] MEDS: LEVOTHYROXINE 125 MCG TABLET PO SCH (20:25)
[2017-09-19] MEDS: TAMSULOSIN 0.4 MG CAPSULE PO SCH (20:25)
[2017-09-19] MEDS: ATORVASTATIN 20 MG TABLET PO SCH (20:36)
[2017-09-19] MEDS ORDERED: METOPROLOL TARTRATE 50 MG TABLET PO SCH (21:00)
[2017-09-19] MEDS: LORazepam 2 MG/ML VIAL IV PRN (21:53)
[2017-09-20] MEDS: METOPROLOL TARTRATE 5 MG/5 ML VIAL IV PRN ×2 (00:25→03:54)
[2017-09-20] MEDS: IPRATROPIUM/ALBUTEROL 3 ML AMPUL.NEB NEB SCH ×4 (02:49→15:40)
[2017-09-20] MEDS: 0.9 % SODIUM CHLORIDE 10 ML SYRINGE IV SCH ×3 (05:38→21:45)
[2017-09-20] MEDS: PIPERACILLIN SODIUM/TAZOBACTAM 3.375 GM in DEXTROSE 5% IN WATER 50 ML IV SCH (05:38)
[2017-09-20 07:30] LABS: Basophils # (Auto) 0 K/mcL (0.0-0.3); Basophils % (Auto) 0 % (0.0-2.0); Eosinophils # (Auto) 0 K/mcL (0.0-0.7); Eosinophils % (Auto) 0 % (0.0-7.0); Granulocytes % (Auto) 88.4 % (38.0-78.0); Lymphocytes # (Auto) 0.6 K/mcL (1.5-4.8); Lymphocytes % (Auto) 4.3 % (15.5-49.0); Mean Cell Volume 84.6 fL (80.0-100.0); Mean Corpuscular HGB Conc 32.7 g/dL (31.0-36.0); Mean Corpuscular Hemoglobin 27.7 pg (26.0-34.0); Monocytes % (Auto) 7.3 % (1.0-12.0); Platelet Count 166 K/mcL (140-440); RBC 3.87 M/mcL (4.50-5.90)
[2017-09-20 08:23] LABS: ALT/SGPT 28 U/l (0-40); Albumin 3.4 gm/dL (3.2-5.2); Alkaline Phosphatase 47 U/L (39-117); Bilirubin,Direct < 0.2 mg/dL (0.0-0.3); Blood Urea Nitrogen 60 mg/dl (8-23); Gamma Glutamyl Transpeptidase 36 U/L (8-61); Uric Acid 7.1 mg/dL (2.5-8.0)
--- NOTE | 2017-09-20 08:51 | Internal Med Progress Note ---
Medical - PN: Subj Patient information: Note initiated : 09/20/17 at 8:48 am Service Date, if different from initiated Date: [] Patient: Carmelo Stewart 72 y/o M admitted on 09/17/17 for Weakness/Pneumonia. Chief Complaint: Patient is alert but confused. Patient complains about feet and right arm. Patient denies dyspnea but looks SOB. - Constitutional Vitals: Vital Signs Temp Pulse Resp BP Pulse Ox 97 F 124 H 25 H 156/103 97 09/20/17 07:21 09/20/17 03:56 09/20/17 07:21 09/20/17 07:21 09/20/17 07:21 Period Temp Pulse Resp BP Sys/Mcneill Pulse Ox Last 24 Hr 97 F-98.8 F 52-124 18-30 132-166/81-106 94-97 Intake and Output 09/19/17 09/20/17 09/20/17 21:59 05:59 13:59 Intake Total 910 / 910 1770 / 1770 770 / 770 Output Total 1250 / 1250 1550 / 1550 Balance -340 / -340 220 / 220 770 / 770 Weight 244 lb 11.2 oz 244 lb 11.2 oz Intake & Output: Intake & Output 09/19/17 09/20/17 09/20/17 21:59 05:59 13:59 Intake Total 910 / 910 1770 / 1770 770 / 770 Output Total 1250 / 1250 1550 / 1550 Balance -340 / -340 220 / 220 770 / 770 Weight 244 lb 11.2 oz 244 lb 11.2 oz Intake: IV 550 / 550 1050 / 1050 50 / 50 Zosyn 3.375 gm In Dextrose 5% 50 / 50 50 / 50 50 / 50 in Water 50 ml @ 100 mls/hr IV Q8H [facility] Rx#:[id number] Vancomycin 1,500 mg In Sodium 500 / 500 Chloride 0.9% 500 ml @ 333.333 mls/hr IV Q24H [facility] Rx#: [id number] Oral 360 / 360 720 / 720 720 / 720 Output: Urine Catheter Amount 1250 / 1250 1550 / 1550 Other: Meal Dinner Percent of Meal Consumed 10 Stool Size Smear Small Stool Color Brown Stool Consistency Soft # of times incontinent of 1 Bowels General appearance: moderate distress - Neck Additional comments: No JVD - Respiratory Respiratory exam: Present: accessory muscle use, decreased breath sounds, wheezes - Cardiovascular Cardiovascular exam: Present: irregular rhythm, tachycardia - GI/Abdominal GI/Abdominal exam: Present: distended - Extremities Exam Extremities exam: Present: normal capillary refill, pedal edema - Neurological Exam Neurological exam: Present: altered - Psychiatric Psychiatric exam: Present: anxious Medical - PN: Obj Da - Labs CBC & Chem 7: 09/20/17 04:00 09/20/17 04:00 Labs: Abnormal Lab Results 09/20/17 09/20/17 09/19/17 04:00 04:00 04:15 WBC 13.8 H RBC 3.87 L Hgb 10.7 L Hct 32.7 L RDW 16.0 H Gran % 88.4 H Lymph % (Auto) 4.3 L [place] % (Auto) Gran # 12.2 H Lymph # (Auto) 0.6 L [place] # (Auto) 1.0 H Sodium 148 H Potassium Chloride Carbon Dioxide 34 H Anion Gap BUN 60 H Creatinine 1.9 H Glucose 291 H Uric Acid Calcium Phosphorus 2.3 L Lactate Dehydrogenase 313 H Troponin T 0.22 H* NT-Pro-B Natriuret Pep Triglycerides 290 H 09/19/17 09/19/17 09/18/17 04:10 04:10 09:36 WBC 13.3 H RBC 3.56 L Hgb 9.5 L Hct 29.7 L RDW 15.9 H Gran % 93.5 H Lymph % (Auto) 3.5 L [place] % (Auto) Gran # 12.5 H Lymph # (Auto) 0.5 L [place] # (Auto) Sodium 147 H Potassium Chloride Carbon Dioxide 31 H Anion Gap 17.0 H BUN 66 H Creatinine 2.0 H Glucose 364 H Uric Acid 8.5 H Calcium Phosphorus Lactate Dehydrogenase 307 H Troponin T 0.39 H* NT-Pro-B Natriuret Pep Triglycerides 169 H 09/18/17 09/18/17 09/18/17 07:47 07:47 07:47 WBC RBC 3.41 L Hgb 9.3 L Hct 28.3 L RDW 15.4 H Gran % 91.5 H Lymph % (Auto) 7.9 L [place] % (Auto) 0.6 L Gran # Lymph # (Auto) 0.7 L [place] # (Auto) 0 L Sodium Potassium 2.9 L* Chloride Carbon Dioxide 34 H Anion Gap BUN 75 H Creatinine 1.9 H Glucose 326 H Uric Acid 10.5 H Calcium Phosphorus 4.6 H Lactate Dehydrogenase Troponin T 0.41 H* NT-Pro-B Natriuret Pep Triglycerides 162 H 09/17/17 09/17/17 09/17/17 12:18 08:54 08:54 WBC RBC Hgb Hct RDW Gran % Lymph % (Auto) [place] % (Auto) Gran # Lymph # (Auto) [place] # (Auto) Sodium Potassium Chloride 91 L Carbon Dioxide 39 H Anion Gap BUN 102 H* Creatinine 2.2 H Glucose 243 H Uric Acid Calcium 11.3 H Phosphorus Lactate Dehydrogenase Troponin T 0.23 H* 0.18 H* NT-Pro-B Natriuret Pep 1861.0 H Triglycerides 09/17/17 08:54 WBC RBC 3.48 L Hgb 9.6 L Hct 28.5 L RDW 15.8 H Gran % Lymph % (Auto) [place] % (Auto) Gran # Lymph # (Auto) [place] # (Auto) Sodium Potassium Chloride Carbon Dioxide Anion Gap BUN Creatinine Glucose Uric Acid Calcium Phosphorus Lactate Dehydrogenase Troponin T NT-Pro-B Natriuret Pep Triglycerides Meds: Medications Acetaminophen (Tylenol) 650 mg PO Q6HP PRN PRN Reason: PAIN/FEVER > 101 Last Admin: 09/18/17 08:30 Dose: 650 mg Albuterol/Ipratropium (Duoneb) 3 ml NEB Q4HRT [facility] Last Admin: 09/20/17 06:56 Dose: Not Given Albuterol/Ipratropium (Duoneb) 3 ml NEB QIDP PRN PRN Reason: Shortness Of Breath Aspirin (Aspirin) 81 mg PO DAILY [facility] Last Admin: 09/19/17 09:20 Dose: 81 mg Atorvastatin Calcium (Lipitor) 5 mg PO HS [facility] Last Admin: 09/19/17 20:36 Dose: 5 mg Clopidogrel Bisulfate (Plavix) 75 mg PO QAM [facility] Last Admin: 09/19/17 09:20 Dose: 75 mg Dextrose (Dextrose 50%) 0 ml IV UD PRN PRN Reason: Hypoglycemia Diagnostic Test (Pha) (Accu-Chek) 1 each FS ACHS [facility] Last Admin: 09/20/17 06:59 Dose: 1 each Docusate Sodium (Colace) 100 mg PO BID PRN PRN Reason: Constipation Last Admin: 09/18/17 09:51 Dose: 100 mg Fentanyl (Duragesic) 75 mcg TD Q72H [facility] Last Admin: 09/19/17 13:37 Dose: 75 mcg Ferrous Sulfate (Ferrous Sulfate) 325 mg PO QDAY [facility] Last Admin: 09/19/17 09:20 Dose: 325 mg Finasteride (Proscar) 5 mg PO DAILY [facility] Last Admin: 09/19/17 09:47 Dose: 5 mg Glucose (Insta-Glucose) 15 gm PO PRN PRN PRN Reason: Hypoglycemia Heparin Sodium (Porcine) (Heparin) 5,000 unit SQ Q12 [facility] Last Admin: 09/19/17 20:25 Dose: 5,000 unit Piperacillin Sod/Tazobactam (Sod 3.375 gm/ Dextrose) 50 mls @ 100 mls/hr IV Q8H [facility] Last Infusion: 09/20/17 06:08 Dose: Infused Vancomycin HCl 1,500 mg/ (Sodium Chloride) 500 mls @ 333.333 mls/hr IV Q24H [facility] Last Infusion: 09/19/17 19:15 Dose: Infused Insulin Glargine (Lantus) 15 unit SQ BID [facility] Last Admin: 09/19/17 20:26 Dose: 15 unit Insulin Human Lispro (Humalog) 0 unit SQ ACHS [facility] PRN Reason: Protocol Last Admin: 09/19/17 20:26 Dose: 6 unit Levothyroxine Sodium (Synthroid) 125 mcg PO HS [facility] Last Admin: 09/19/17 20:25 Dose: 125 mcg Lorazepam (Ativan) 1 mg IV Q4-6HP PRN PRN Reason: ANXIETY/SEDATION Last Admin: 09/19/17 21:53 Dose: 1 mg Magnesium Oxide (Magnesium Oxide) 400 mg PO BID [facility] Last Admin: 09/19/17 20:25 Dose: 400 mg Metoprolol Tartrate (Lopressor) 5 mg IV Q4HP PRN PRN Reason: Tachyarrhythmias Last Admin: 09/20/17 03:54 Dose: 5 mg Metoprolol Tartrate (Lopressor) 50 mg PO BID [facility] Last Admin: 09/19/17 20:25 Dose: 50 mg Naloxone HCl (Narcan) 0.1 mg IV Q2MIN PRN PRN Reason: Opiate Reversal Ondansetron HCl (Zofran) 4 mg IV Q4HP PRN PRN Reason: Nausea And Vomiting Budesonide/Formoterol Fumarate [Symbicort 80-4.5 Inh 1 dose INH DAILY [facility] Last Admin: 09/19/17 09:39 Dose: Not Given Tolnaftate [ (Antifungal] Powder) 1 dose TOPICAL PRN PRN PRN Reason: Rash Potassium Chloride (Kdur) 20 meq PO BIDCC [facility] Last Admin: 09/19/17 17:40 Dose: 20 meq [facility]) [facility] Pregabalin (Lyrica) 75 mg PO BID [facility] Last Admin: 09/19/17 20:36 Dose: 75 mg Sodium Chloride (Saline Flush) 10 ml IV Q8 [facility] Last Admin: 09/20/17 05:38 Dose: 10 ml Tamsulosin HCl (Flomax) 0.4 mg PO HS [facility] Last Admin: 09/19/17 20:25 Dose: 0.4 mg Tiotropium [place] (Spiriva) 18 mcg INH QDAY [facility] Last Admin: 09/19/17 09:39 Dose: Not Given Vancomycin HCl (Vancomycin Per Pharmacy) 1 order IV UD [facility] Medical - PN: A/P - Time Spent With Patient Total time spent is greater than 50% in coordination of care (as documented) at patient's floor/unit and/or counseling patient: - Narrative A/P Narrative: Acute kidney injury with encephalopathy complicating chronic pain, DM, Afib with RVR and COPD - Titrate metoprolol for HR control - Titrate insulin for BG control - PO steroids (taper) - Mobilize - Stop antibiotics (CXR negative) - Attempt to mobilize - Trend labs - Consider transfer to Med/Surg 09/21/17? Medical - PN: Qual - VTE Deep Vein Thrombosis/Pulmonary Embolism Present on Admission: No
[2017-09-20] MEDS: INSULIN GLARGINE, HUMAN 1 UNIT/0.01 ML SQ SCH (09:05)
[2017-09-20] MEDS: INSULIN LISPRO 1 UNIT/0.01 ML UNIT SQ SCH ×4 (09:05→20:20)
[2017-09-20] MEDS: CLOPIDOGREL 75 MG TABLET PO SCH (09:06)
[2017-09-20] MEDS: ASPIRIN 81 MG TAB.CHEW PO SCH (09:06)
[2017-09-20] MEDS: METOPROLOL TARTRATE 50 MG TABLET PO SCH ×2 (09:06→20:20)
[2017-09-20] MEDS: HEPARIN 5,000 UNIT/ML VIAL SQ SCH ×2 (09:06→20:20)
[2017-09-20] MEDS: predniSONE 20 MG TABLET PO SCH ×2 (09:06→09:10)
[2017-09-20] MEDS: ACETAMINOPHEN 325 MG TABLET PO PRN (09:06)
[2017-09-20] MEDS: POTASSIUM CHLORIDE 20 MEQ TABLET PO SCH ×2 (09:06→17:36)
[2017-09-20] MEDS: MAGNESIUM OXIDE 400 MG TABLET PO SCH ×2 (09:06→20:20)
[2017-09-20] MEDS: FORMOTEROL FUMARATE INH SCH (09:07)
[2017-09-20] MEDS: BUDESONIDE INH SCH (09:07)
[2017-09-20] MEDS: TIOTROPIUM BROMIDE 18 MCG INHALANT INH SCH (09:07)
[2017-09-20] MEDS: FINASTERIDE 5 MG TABLET PO SCH (09:10)
[2017-09-20] MEDS: PREGABALIN 75 MG CAPSULE PO SCH ×2 (09:10→20:20)
[2017-09-20] MEDS: ONDANSETRON 4 MG/2 ML VIAL IV PRN ×3 (12:46→18:30)
[2017-09-20] MEDS: INSULIN NPH, HUMAN 1 UNIT/0.01 ML UNIT SQ SCH (17:35)
[2017-09-20] MEDS: ATORVASTATIN 20 MG TABLET PO SCH (20:20)
[2017-09-20] MEDS: LEVOTHYROXINE 125 MCG TABLET PO SCH (20:20)
[2017-09-20] MEDS: TAMSULOSIN 0.4 MG CAPSULE PO SCH (20:20)
[2017-09-20] MEDS: LORazepam 2 MG/ML VIAL IV PRN (20:20)
[2017-09-21] MEDS: LORazepam 2 MG/ML VIAL IV PRN (00:15)
[2017-09-21] MEDS: INSULIN LISPRO 1 UNIT/0.01 ML UNIT SQ SCH ×5 (07:30→20:50)
[2017-09-21] MEDS: HEPARIN 5,000 UNIT/ML VIAL SQ SCH (10:48)
[2017-09-21] MEDS: METOPROLOL TARTRATE 50 MG TABLET PO SCH ×2 (10:49→20:28)
[2017-09-21] MEDS: predniSONE 20 MG TABLET PO SCH (10:49)
[2017-09-21] MEDS: 0.9 % SODIUM CHLORIDE 10 ML SYRINGE IV SCH ×3 (10:49→21:59)
[2017-09-21] MEDS: POTASSIUM CHLORIDE 20 MEQ TABLET PO SCH ×2 (10:50→17:46)
[2017-09-21] MEDS: MAGNESIUM OXIDE 400 MG TABLET PO SCH ×2 (10:50→20:28)
[2017-09-21] MEDS: ACETAMINOPHEN 325 MG TABLET PO PRN (10:50)
[2017-09-21] MEDS: CLOPIDOGREL 75 MG TABLET PO SCH (10:50)
[2017-09-21] MEDS: ASPIRIN 81 MG TAB.CHEW PO SCH (10:50)
[2017-09-21] MEDS: TIOTROPIUM BROMIDE 18 MCG INHALANT INH SCH (10:51)
[2017-09-21] MEDS: PREGABALIN 75 MG CAPSULE PO SCH ×2 (10:54→20:27)
[2017-09-21] MEDS: FINASTERIDE 5 MG TABLET PO SCH (10:54)
[2017-09-21] MEDS: INSULIN NPH, HUMAN 1 UNIT/0.01 ML UNIT SQ SCH ×2 (10:57→17:43)
[2017-09-21] MEDS: BUDESONIDE INH SCH (10:57)
[2017-09-21] MEDS: FORMOTEROL FUMARATE INH SCH (10:57)
[2017-09-21] MEDS ORDERED: ACETAMINOPHEN 325 MG TABLET PO PRN (10:59)
[2017-09-21] MEDS ORDERED: DEXTROSE 31 GM ORAL.SUSP PO PRN (10:59)
[2017-09-21] MEDS ORDERED: DEXTROSE 50% 50 ML VIAL IV PRN (10:59)
[2017-09-21] MEDS ORDERED: DOCUSATE SODIUM 100 MG CAPSULE PO PRN (10:59)
[2017-09-21] MEDS ORDERED: IPRATROPIUM/ALBUTEROL 3 ML AMPUL.NEB NEB PRN (10:59)
--- NOTE | 2017-09-21 13:48 | Internal Med Progress Note ---
Medical - PN: Subj Patient information: Note initiated : 09/21/17 at 12:04 pm Service Date, if different from initiated Date: [] Patient: Carmelo Stewart 72 y/o M admitted on 09/17/17 for Weakness/Pneumonia. Chief Complaint: Patient is sitting up in chair. Patient states that he is better. Patient is not oriented to time and to admission concerns. Patient was agitated last pm. - Constitutional Vitals: Vital Signs Temp Pulse Resp BP Pulse Ox 97.0 F 46 L 15 161/67 98 09/20/17 18:55 09/20/17 16:02 09/20/17 18:55 09/20/17 18:55 09/20/17 18:55 Period Temp Pulse Resp BP Sys/Mcneill Pulse Ox Last 24 Hr 97.0 F-97.7 F 46 15-17 155-161/67-113 95-98 Intake and Output 09/20/17 09/21/17 09/21/17 21:59 05:59 13:59 Intake Total 320 / 320 960 / 960 Output Total 1100 / 1100 Balance -780 / -780 960 / 960 Intake & Output: Intake & Output 09/20/17 09/21/17 09/21/17 21:59 05:59 13:59 Intake Total 320 / 320 960 / 960 Output Total 1100 / 1100 Balance -780 / -780 960 / 960 Intake: Oral 320 / 320 960 / 960 Output: Urine Catheter Amount 1050 / 1050 Emesis 50 / 50 Other: Meal Dinner Breakfast Percent of Meal Consumed Refused 25% Feeding Ability Needs Supervision Stool Size Moderate Small Stool Color Brown Green Black Stool Consistency Soft Soft # Bowel Movements 1 # of times incontinent of 1 Bowels General appearance: disheveled, no acute distress, obese - Respiratory Respiratory exam: Present: decreased breath sounds, wheezes - Cardiovascular Cardiovascular exam: Present: irregular rhythm - GI/Abdominal GI/Abdominal exam: Present: diminished bowel sounds - Neurological Exam Neurological exam: Present: alert, altered, reflexes normal - Skin Skin exam: Present: warm Medical - PN: Obj Da - Labs CBC & Chem 7: 09/20/17 04:00 09/20/17 04:00 Labs: Abnormal Lab Results 09/20/17 09/20/17 09/20/17 15:16 04:00 04:00 WBC 13.8 H RBC 3.87 L Hgb 10.7 L Hct 32.7 L RDW 16.0 H Gran % 88.4 H Lymph % (Auto) 4.3 L Gran # 12.2 H Lymph # (Auto) 0.6 L [place] # (Auto) 1.0 H Sodium 148 H Carbon Dioxide 34 H Anion Gap BUN 60 H Creatinine 1.9 H Glucose 291 H Uric Acid Phosphorus 2.3 L Lactate Dehydrogenase 313 H Troponin T Triglycerides 290 H Vancomycin Trough 21.2 H* 09/19/17 09/19/17 09/19/17 04:15 04:10 04:10 WBC 13.3 H RBC 3.56 L Hgb 9.5 L Hct 29.7 L RDW 15.9 H Gran % 93.5 H Lymph % (Auto) 3.5 L Gran # 12.5 H Lymph # (Auto) 0.5 L [place] # (Auto) Sodium 147 H Carbon Dioxide 31 H Anion Gap 17.0 H BUN 66 H Creatinine 2.0 H Glucose 364 H Uric Acid 8.5 H Phosphorus Lactate Dehydrogenase 307 H Troponin T 0.22 H* Triglycerides 169 H Vancomycin Trough Meds: Medications Acetaminophen (Tylenol) 650 mg PO Q6HP PRN PRN Reason: PAIN/FEVER > 101 Last Admin: 09/21/17 10:50 Dose: 650 mg Albuterol/Ipratropium (Duoneb) 3 ml NEB QIDP PRN PRN Reason: Shortness Of Breath Aspirin (Aspirin) 81 mg PO DAILY [facility] Last Admin: 09/21/17 10:50 Dose: 81 mg Atorvastatin Calcium (Lipitor) 5 mg PO HS [facility] Last Admin: 09/19/17 20:36 Dose: 5 mg Clopidogrel Bisulfate (Plavix) 75 mg PO QAM [facility] Last Admin: 09/21/17 10:50 Dose: 75 mg Dextrose (Dextrose 50%) 0 ml IV UD PRN PRN Reason: Hypoglycemia Diagnostic Test (Pha) (Accu-Chek) 1 each FS ACHS [facility] Last Admin: 09/21/17 08:00 Dose: 1 each Docusate Sodium (Colace) 100 mg PO BID PRN PRN Reason: Constipation Last Admin: 09/18/17 09:51 Dose: 100 mg Fentanyl (Duragesic) 75 mcg TD Q72H [facility] Last Admin: 09/19/17 13:37 Dose: 75 mcg Finasteride (Proscar) 5 mg PO DAILY [facility] Last Admin: 09/21/17 10:54 Dose: 5 mg Glucose (Insta-Glucose) 15 gm PO PRN PRN PRN Reason: Hypoglycemia Heparin Sodium (Porcine) (Heparin) 5,000 unit SQ Q12 [facility] Last Admin: 09/21/17 10:48 Dose: 5,000 unit Insulin Human Lispro (Humalog) 0 unit SQ ACHS [facility] PRN Reason: Protocol Last Admin: 09/21/17 07:30 Dose: Not Given Insulin Human NPH (Humalin N) 30 unit SQ BIDAC [facility] Last Admin: 09/21/17 10:57 Dose: Not Given Levothyroxine Sodium (Synthroid) 125 mcg PO HS [facility] Last Admin: 09/19/17 20:25 Dose: 125 mcg Lorazepam (Ativan) 1 mg IV Q4-6HP PRN PRN Reason: ANXIETY/SEDATION Last Admin: 09/19/17 21:53 Dose: 1 mg Magnesium Oxide (Magnesium Oxide) 400 mg PO BID [facility] Last Admin: 09/21/17 10:50 Dose: 400 mg Metoprolol Tartrate (Lopressor) 5 mg IV Q4HP PRN PRN Reason: Tachyarrhythmias Last Admin: 09/20/17 03:54 Dose: 5 mg Metoprolol Tartrate (Lopressor) 100 mg PO BID [facility] Last Admin: 09/21/17 10:49 Dose: 100 mg Naloxone HCl (Narcan) 0.1 mg IV Q2MIN PRN PRN Reason: Opiate Reversal Ondansetron HCl (Zofran) 4 mg IV Q4HP PRN PRN Reason: Nausea And Vomiting Last Admin: 09/20/17 18:30 Dose: 4 mg Budesonide/Formoterol Fumarate [Symbicort 80-4.5 Inh 1 dose INH DAILY [facility] Last Admin: 09/21/17 10:57 Dose: Not Given Tolnaftate [ (Antifungal] Powder) 1 dose TOPICAL PRN PRN PRN Reason: Rash Potassium Chloride (Kdur) 20 meq PO BIDCC [facility] Last Admin: 09/21/17 10:50 Dose: 20 meq Prednisone (Prednisone) 20 mg PO QAC [facility] Last Admin: 09/21/17 10:49 Dose: 20 mg Pregabalin (Lyrica) 75 mg PO BID [facility] Last Admin: 09/21/17 10:54 Dose: 75 mg Sodium Chloride (Saline Flush) 10 ml IV Q8 [facility] Last Admin: 09/21/17 10:49 Dose: 10 ml Tamsulosin HCl (Flomax) 0.4 mg PO HS [facility] Last Admin: 09/19/17 20:25 Dose: 0.4 mg Tiotropium [place] (Spiriva) 18 mcg INH QDAY [facility] Last Admin: 09/21/17 10:51 Dose: Not Given Medical - PN: A/P - Time Spent With Patient Total time spent is greater than 50% in coordination of care (as documented) at patient's floor/unit and/or counseling patient: - Narrative A/P Narrative: Encephalopathy complicating acute hypoxemic respiratory failure, acute kidney injury and chronic pain - Transfer to Med/Surg - Mobilize - Limit [employer] active medications - Discharge planning Medical - PN: Qual - VTE Deep Vein Thrombosis/Pulmonary Embolism Present on Admission: No
[2017-09-21] MEDS: ATORVASTATIN 20 MG TABLET PO SCH (20:27)
[2017-09-21] MEDS: oxyCODONE/APAP 10/325MG TABLET PO PRN (20:27)
[2017-09-21] MEDS: LEVOTHYROXINE 125 MCG TABLET PO SCH (20:27)
[2017-09-21] MEDS: TAMSULOSIN 0.4 MG CAPSULE PO SCH (20:28)
[2017-09-22] MEDS: oxyCODONE/APAP 10/325MG TABLET PO PRN ×3 (03:32→21:58)
[2017-09-22] MEDS: 0.9 % SODIUM CHLORIDE 10 ML SYRINGE IV SCH ×3 (05:55→21:51)
[2017-09-22 06:20] LABS: ALT/SGPT 22 U/l (0-40); Albumin/Globulin Ratio 1.1 (1.0-2.3); Alkaline Phosphatase 39 U/L (39-117); Bilirubin,Direct < 0.2 mg/dL (0.0-0.3); Blood Urea Nitrogen 69 mg/dl (8-23); Gamma Glutamyl Transpeptidase 28 U/L (8-61)
--- NOTE | 2017-09-22 08:03 | Internal Med Progress Note ---
Medical - PN: Subj Patient information: Note initiated : 09/22/17 at 8:00 am Service Date, if different from initiated Date: [] Patient: Carmelo Stewart 72 y/o M admitted on 09/17/17 for Weakness/Pneumonia. Chief Complaint: Patient is having copius stooling and abdominal pain. Patient denies N/V currently but reportedly had nausea last pm. Patient states he has recently been on antibiotics but is unsure why, what type or exactly when. - Constitutional Vitals: Vital Signs Temp Pulse Resp BP Pulse Ox 97.6 F 75 18 161/67 97 09/22/17 06:36 09/22/17 06:36 09/22/17 06:36 09/22/17 06:36 09/22/17 06:36 Period Temp Pulse Resp BP Sys/Mcneill Pulse Ox Last 24 Hr 97.1 F-97.9 F 58-76 12-24 107-161/56-86 95-100 Intake and Output 09/21/17 09/22/17 09/22/17 21:59 05:59 13:59 Intake Total 500 / 500 Output Total 350 / 350 1 / 1 Balance 150 / 150 -1 / -1 Weight 245 lb 12.8 oz Intake & Output: Intake & Output 09/21/17 09/22/17 09/22/17 21:59 05:59 13:59 Intake Total 500 / 500 Output Total 350 / 350 1 / 1 Balance 150 / 150 -1 / -1 Weight 245 lb 12.8 oz Intake: Oral 500 / 500 Output: Urine Catheter Amount 350 / 350 # of times incontinent of urine Other: Meal Dinner Percent of Meal Consumed 0% Feeding Ability Assist with Tray Set Up General appearance: moderate distress, obese - Respiratory Respiratory exam: Present: decreased breath sounds - Cardiovascular Cardiovascular exam: Present: normal rate and rhythm - GI/Abdominal GI/Abdominal exam: Present: soft, distended, hyperactive bowel sounds Additional comments: No rebound or masses - Rectal Additional comments: Rectal tube in place - Neurological Exam Neurological exam: Present: alert - Skin Skin exam: Present: dry Medical - PN: Obj Da - Labs CBC & Chem 7: 09/22/17 04:20 09/22/17 04:20 Labs: Abnormal Lab Results 09/22/17 09/20/17 09/20/17 04:20 15:16 04:00 WBC RBC Hgb Hct RDW Gran % Lymph % (Auto) Gran # Lymph # (Auto) [place] # (Auto) Sodium 148 H Carbon Dioxide 34 H 34 H BUN 69 H 60 H Creatinine 2.2 H 1.9 H Glucose 214 H 291 H Calcium 8.5 L Phosphorus 2.3 L Lactate Dehydrogenase 259 H 313 H Total Protein 5.8 L Albumin 3.0 L Triglycerides 384 H 290 H Vancomycin Trough 21.2 H* 09/20/17 04:00 WBC 13.8 H RBC 3.87 L Hgb 10.7 L Hct 32.7 L RDW 16.0 H Gran % 88.4 H Lymph % (Auto) 4.3 L Gran # 12.2 H Lymph # (Auto) 0.6 L [place] # (Auto) 1.0 H Sodium Carbon Dioxide BUN Creatinine Glucose Calcium Phosphorus Lactate Dehydrogenase Total Protein Albumin Triglycerides Vancomycin Trough Meds: Medications Acetaminophen (Tylenol) 650 mg PO Q6HP PRN PRN Reason: PAIN/FEVER > 101 Albuterol/Ipratropium (Duoneb) 3 ml NEB QIDP PRN PRN Reason: Shortness Of Breath Last Admin: 09/21/17 19:30 Dose: 3 ml Aspirin (Aspirin) 81 mg PO DAILY [facility] Atorvastatin Calcium (Lipitor) 5 mg PO HS [facility] Last Admin: 09/21/17 20:27 Dose: 5 mg Clopidogrel Bisulfate (Plavix) 75 mg PO QAM [facility] Dextrose (Dextrose 50%) 0 ml IV UD PRN PRN Reason: Hypoglycemia Diagnostic Test (Pha) (Accu-Chek) 1 each FS [facility] Last Admin: 09/22/17 07:05 Dose: 1 each Docusate Sodium (Colace) 100 mg PO BID PRN PRN Reason: Constipation Fentanyl (Duragesic) 75 mcg TD Q72H [facility] Finasteride (Proscar) 5 mg PO DAILY [facility] Glucose (Insta-Glucose) 15 gm PO PRN PRN PRN Reason: Hypoglycemia Insulin Human Lispro (Humalog) 0 unit SQ [facility] PRN Reason: Protocol Last Admin: 09/21/17 20:50 Dose: Not Given Insulin Human NPH (Humalin N) 30 unit SQ BIDAC [facility] Last Admin: 09/21/17 17:43 Dose: Not Given Levothyroxine Sodium (Synthroid) 125 mcg PO HS [facility] Last Admin: 09/21/17 20:27 Dose: 125 mcg Magnesium Oxide (Magnesium Oxide) 400 mg PO BID [facility] Last Admin: 09/21/17 20:28 Dose: 400 mg Metoprolol Tartrate (Lopressor) 100 mg PO BID [facility] Last Admin: 09/21/17 20:28 Dose: 100 mg Oxycodone/Acetaminophen (Percocet 10-325mg) 1 tab PO Q6HP PRN PRN Reason: PAIN LEVEL 3-6 Last Admin: 09/22/17 03:32 Dose: 1 tab Potassium Chloride (Kdur) 20 meq PO BIDCC [facility] Last Admin: 09/21/17 17:46 Dose: 20 meq [facility]) [facility] Pregabalin (Lyrica) 75 mg PO BID [facility] Last Admin: 09/21/17 20:27 Dose: 75 mg Sodium Chloride (Saline Flush) 10 ml IV Q8 [facility] Last Admin: 09/22/17 05:55 Dose: 10 ml Tamsulosin HCl (Flomax) 0.4 mg PO HS [facility] Last Admin: 09/21/17 20:28 Dose: 0.4 mg Tiotropium [place] (Spiriva) 18 mcg INH QDAY [facility] Medical - PN: A/P - Time Spent With Patient Total time spent is greater than 50% in coordination of care (as documented) at patient's floor/unit and/or counseling patient: - Narrative A/P Narrative: Diarrhea, abdominal pain and progressive renal dysfunction after admission with altered mental status. - CT abdomen/pelvis (non contrast) - Trend labs - Stool studies including EHEC/Clostridium - Oral vancomycin empirically Medical - PN: Qual - VTE Deep Vein Thrombosis/Pulmonary Embolism Present on Admission: No
--- NOTE | 2017-09-22 09:00 | Cat Scan Report ---
ORIGINAL REPORT CLINICAL INFORMATION: Abdominal pain. Diarrhea. COMPARISON: None. TECHNIQUE: Axial images were obtained through the abdomen and pelvis. Sagittally and coronally reformatted images. FINDINGS: Lung bases are negative. No parenchymal infiltrate or mass. No significant pleural effusion. No pericardial effusion. Liver is negative. No detectable mass on this noncontrast enhanced examination. Liver contour is smooth. No evidence for cirrhosis. No ascites. No detectable intrahepatic bile duct dilatation. Common bile duct measures 9 mm. This is mildly dilated. The gallbladder has been removed. There is a density in the distal common bile duct consistent with choledocholithiasis. This stone measures approximately 7 mm maximally. Pancreas is negative. No pancreatic head mass. No peripancreatic abnormality. No splenomegaly. Negative adrenal glands. Kidneys are atrophic bilaterally. No hydronephrosis. There are renal masses consistent with cysts. There is a focal density which appears to be intraluminal within the rectum. The rectum contains fluid with air-fluid level. No detectable rectal or anal mass. Sigmoid colon is negative. No detectable colonic mass or wall thickening. No appendicitis. No diverticulitis. Small bowel is negative. No small bowel dilatation. There is mesenteric edema. This is a nonspecific finding but can be seen with panniculitis. There are other causes considering pancreatitis although this patient does not have other manifestations of pancreatitis. There is extensive atherosclerotic calcification with calcified plaque in the abdominal aorta and common iliac arteries. No abdominal aortic aneurysm. Superior mesenteric artery and celiac trunk appear normal without evidence for stenosis. The stomach is mildly distended and fluid containing. No detectable mass. Duodenum is also prominent and contains fluid. No evidence for mechanical obstruction. Mesenteric edema could be related to inflammatory disease involving the duodenum, duodenitis. There is superior endplate compression at L1 and L2. Findings are probably chronic and benign. No sacral or pelvic fracture IMPRESSION: 1. Findings consistent with 9 mm stone in the distal common bile duct. MRCP recommended. Previous cholecystectomy 2. Mild mesenteric edema. Findings are nonspecific 3. Focal density within the rectum. This appears to be intraluminal. There is fluid within the rectum. No detectable colonic mass. 4. Prominent fluid containing stomach and duodenum The exam was performed using radiation dose optimization techniques including, but not limited to, automated exposure control, adjustment of the mA and/or kV according to patient size and use of iterative reconstruction technique. ADDENDUM #1 Addendum: There is a subcutaneous soft tissue density overlying the right hemithorax. This measures 2.1 x 3.1 cm. This may be breast tissue. Correlation with physical examination is recommended. If clinically indicated mammogram the benefit. If this does not correlate with breast tissue then ultrasound would be helpful to evaluate for this soft tissue mass. Interpreted and Authenticated by: Mo Dotson 09/23/17
[2017-09-22 09:06] LABS: Mean Cell Volume 83.6 fL (80.0-100.0); Mean Corpuscular HGB Conc 32.6 g/dL (31.0-36.0); Mean Corpuscular Hemoglobin 27.2 pg (26.0-34.0); Platelet Count 193 K/mcL (140-440); RBC 3.98 M/mcL (4.50-5.90); Red Cell Distribution Width 16.2 % (11.5-14.5)
[2017-09-22] MEDS: INSULIN NPH, HUMAN 1 UNIT/0.01 ML UNIT SQ SCH ×2 (09:47→17:12)
[2017-09-22] MEDS: PREGABALIN 75 MG CAPSULE PO SCH ×2 (09:49→21:18)
[2017-09-22] MEDS: FINASTERIDE 5 MG TABLET PO SCH (09:49)
[2017-09-22] MEDS: INSULIN LISPRO 1 UNIT/0.01 ML UNIT SQ SCH ×4 (09:49→21:19)
[2017-09-22] MEDS: predniSONE 20 MG TABLET PO SCH (09:50)
[2017-09-22] MEDS: POTASSIUM CHLORIDE 20 MEQ TABLET PO SCH ×2 (09:50→17:18)
[2017-09-22] MEDS: CLOPIDOGREL 75 MG TABLET PO SCH (09:50)
[2017-09-22] MEDS: METOPROLOL TARTRATE 50 MG TABLET PO SCH ×2 (09:51→21:19)
[2017-09-22] MEDS: ASPIRIN 81 MG TAB.CHEW PO SCH (09:51)
[2017-09-22] MEDS: MAGNESIUM OXIDE 400 MG TABLET PO SCH ×2 (09:51→21:19)
[2017-09-22] MEDS: VANCOMYCIN ORAL SOL 1,000 MG/10 ML BOTTLE PO SCH ×3 (09:52→17:20)
[2017-09-22] MEDS: TIOTROPIUM BROMIDE 18 MCG INHALANT INH SCH (09:53)
[2017-09-22] MEDS ORDERED: fentaNYL 75 MCG PATCH TD SCH (10:00)
[2017-09-22 11:19] LABS: Anisocytosis 1+ (NONE SEEN); Band Neutrophils % 2 % (0-10); Eosinophils % (Manual) 1 % (0-7); Lymphocytes % 11 % (15-49); Monocytes % (Manual) 9 % (1-12); Platelet Estimate NORMAL (NORMAL); RBC Morphology ABNORM (NORMAL); Segmented Neutrophils % 76 % (38-78)
[2017-09-22] MEDS: ATORVASTATIN 20 MG TABLET PO SCH (21:18)
[2017-09-22] MEDS: LEVOTHYROXINE 125 MCG TABLET PO SCH (21:18)
[2017-09-22] MEDS: TAMSULOSIN 0.4 MG CAPSULE PO SCH (21:19)
[2017-09-23] MEDS: 0.9 % SODIUM CHLORIDE 10 ML SYRINGE IV SCH ×5 (06:04→22:15)
[2017-09-23] MEDS: oxyCODONE/APAP 10/325MG TABLET PO PRN ×2 (06:04→20:47)
[2017-09-23] MEDS: INSULIN NPH, HUMAN 1 UNIT/0.01 ML UNIT SQ SCH ×2 (07:30→17:55)
[2017-09-23] MEDS: INSULIN LISPRO 1 UNIT/0.01 ML UNIT SQ SCH ×4 (07:30→20:53)
[2017-09-23] MEDS ORDERED: 0.9 % SODIUM CHLORIDE 10 ML SYRINGE IV PRN ×2 (09:15→10:47)
--- NOTE | 2017-09-23 09:22 | Internal Med Progress Note ---
Medical - PN: Subj Patient information: Note initiated : 09/23/17 at 9:13 am Service Date, if different from initiated Date: [] Patient: Carmelo Stewart 72 y/o M admitted on 09/17/17 for Weakness/Pneumonia. Chief Complaint: [] Interval history: Mr. Stewart is a 72 year old Male with multiple medical issues, presents to the [place] after being confused and drowsy since this AM, no other history available, apart from possible fall yesterday In the ER pt was solmenent and only wakes up to verbal of touch, does not open eyes spontaneously, he tries to answer questions but unable to provide any meaninful input. I am aware that the ER provider tried to ask him if he would like to be cardioverted, and he noted yes, I doubt if he comphreneds enough to provide any meaningful answer to that question. Workup in the ER, showed stable vital signs. WBC count of 9.0, no left shift, hemoglobin 9.6 platelets 161. Sodium 143, potassium 3.3, chloride 91, bicarbonate 39 elevated from before, BUN is 102 elevated from baseline for him 60-70, creatinine is 2.2, glucose 243. Calcium is 11.3 elevated. Lactic acid 1.4, troponin 0 0.18 patient has had chronic elevation of troponins in the past but not this high usually highest was 0.1 to a couple of years ago. Patient has CK and CK-MB levels which are normal. BNP is 1861. Ammonia level 17. ABG shows pH of 7.5 to-PCO2 58-p.o. 203. Chest x-ray shows possible pneumonia in the right base, EKG shows sinus rhythm few PACs, left axis left anterior vascular block, T-wave inversions in the lateral leads, QS patterns V1 V2, Head CT neg. His case was reviewed by [employer] Dr Butt, who noted that his rise in troponin is non cardiac in nature, and did not want pt to be transferred to higher center. 09/18 Pt seen examined, no acute ovenright issues, mental status better, he is more agitated and angry, rude with the nursing staff, it seems this is his baseilne status. trop trended up, and is now trending down, he did have afib with rvr which may have contributed to some rise in trop. repeat again in AM continue with gentole hydration and see how he does in AM, 09/19 pt seen examined, labs show leucocytosis but improving bun pt mental status is better, but keeps yelling help me all the time, whenever there is no one in the room he gets anxious will resume his home fentanyl dose and see how he does his exam had shantelle basilar crackles, CXR is neg for fluid overload change ns to half ns given hypernatremia on labs today continue duonebs and steroids ans he still has some wheeze on exam continue abx for possible hcap pna goes in intermittent afib with rvr,started on metoprolol 25mg bid 09/23- CT abdomen reveals 9 mm distal common bile duct stone. Persistent diarrhea along with nausea and abdominal pain. Persistent confusion. White count 14.7. C. difficile negative. Stool cultures negative. Case discussed with surgery. PICC line placement today. White count 12.4 creatinine 1.6, - Constitutional Vitals: Vital Signs Temp Pulse Resp BP Pulse Ox 98.4 F 67 18 154/80 97 09/23/17 03:25 09/23/17 03:25 09/23/17 03:25 09/23/17 03:25 09/23/17 03:25 Period Temp Pulse Resp BP Sys/Mcneill Pulse Ox Last 24 Hr 97.6 F-98.8 F 58-98 14-20 128-154/67-80 97-98 Intake and Output 09/22/17 09/23/17 09/23/17 21:59 05:59 13:59 Intake Total 420 / 420 600 / 600 Output Total 227 / 227 426 / 426 Balance 193 / 193 174 / 174 Weight 250 lb 4 oz Intake & Output: Intake & Output 09/22/17 09/23/17 09/23/17 21:59 05:59 13:59 Intake Total 420 / 420 600 / 600 Output Total 227 / 227 426 / 426 Balance 193 / 193 174 / 174 Weight 250 lb 4 oz Intake: Oral 420 / 420 600 / 600 Output: Void Amount 225 / 225 425 / 425 # of times incontinent of urine 2 / 2 Other: Meal Dinner Percent of Meal Consumed Bites # Voids 1 General appearance: moderate distress, morbidly obese Exam: Improved confusion alert and responding to verbal commands Nonlabored breathing Rectal tube draining copious amount of liquid stool Diffuse abdominal tenderness on palpation Medical - PN: Obj Da - Labs CBC & Chem 7: 09/24/17 03:36 09/24/17 03:36 Labs: Abnormal Lab Results 09/22/17 09/22/17 09/20/17 07:15 04:20 15:16 WBC 14.7 H RBC 3.98 L Hgb 10.8 L Hct 33.2 L RDW 16.2 H MPV 10.9 H Lymphocytes % 11 L RBC Morphology Abnorm A Anisocytosis 1+ A Carbon Dioxide 34 H BUN 69 H Creatinine 2.2 H Glucose 214 H Calcium 8.5 L Lactate Dehydrogenase 259 H Total Protein 5.8 L Albumin 3.0 L Triglycerides 384 H Vancomycin Trough 21.2 H* Meds: Medications Acetaminophen (Tylenol) 650 mg PO Q6HP PRN PRN Reason: PAIN/FEVER > 101 Last Admin: 09/22/17 09:51 Dose: 650 mg Albuterol/Ipratropium (Duoneb) 3 ml NEB QIDP PRN PRN Reason: Shortness Of Breath Last Admin: 09/21/17 19:30 Dose: 3 ml Aspirin (Aspirin) 81 mg PO DAILY [facility] Last Admin: 09/22/17 09:51 Dose: 81 mg Atorvastatin Calcium (Lipitor) 5 mg PO HS [facility] Last Admin: 09/22/17 21:18 Dose: 5 mg Clopidogrel Bisulfate (Plavix) 75 mg PO QAM [facility] Last Admin: 09/22/17 09:50 Dose: 75 mg Dextrose (Dextrose 50%) 0 ml IV UD PRN PRN Reason: Hypoglycemia Diagnostic Test (Pha) (Accu-Chek) 1 each FS ACHS [facility] Last Admin: 09/22/17 21:19 Dose: 1 each Docusate Sodium (Colace) 100 mg PO BID PRN PRN Reason: Constipation Fentanyl (Duragesic) 75 mcg TD Q72H [facility] Last Admin: 09/22/17 09:57 Dose: 75 mcg Finasteride (Proscar) 5 mg PO DAILY [facility] Last Admin: 09/22/17 09:49 Dose: 5 mg Glucose (Insta-Glucose) 15 gm PO PRN PRN PRN Reason: Hypoglycemia Insulin Human Lispro (Humalog) 0 unit SQ [facility] PRN Reason: Protocol Last Admin: 09/22/17 21:19 Dose: 3 unit Insulin Human NPH (Humalin N) 30 unit SQ BIDAC [facility] Last Admin: 09/22/17 17:12 Dose: Not Given Levothyroxine Sodium (Synthroid) 125 mcg PO HS [facility] Last Admin: 09/22/17 21:18 Dose: 125 mcg Magnesium Oxide (Magnesium Oxide) 400 mg PO BID [facility] Last Admin: 09/22/17 21:19 Dose: 400 mg Metoprolol Tartrate (Lopressor) 100 mg PO BID [facility] Last Admin: 09/22/17 21:19 Dose: 100 mg Oxycodone/Acetaminophen (Percocet 10-325mg) 1 tab PO Q6HP PRN PRN Reason: PAIN LEVEL 3-6 Last Admin: 09/23/17 06:04 Dose: 1 tab Potassium Chloride (Kdur) 20 meq PO BIDCC [facility] Last Admin: 09/22/17 17:18 Dose: 20 meq Prednisone (Prednisone) 20 mg PO QAMCC [facility] Last Admin: 09/22/17 09:50 Dose: 20 mg Pregabalin (Lyrica) 75 mg PO BID [facility] Last Admin: 09/22/17 21:18 Dose: 75 mg Sodium Chloride (Saline Flush) 10 ml IV Q8 [facility] Last Admin: 09/23/17 06:04 Dose: 10 ml Tamsulosin HCl (Flomax) 0.4 mg PO HS [facility] Last Admin: 09/22/17 21:19 Dose: 0.4 mg Tiotropium [place] (Spiriva) 18 mcg INH QDAY [facility] Last Admin: 09/22/17 09:53 Dose: Not Given Medical - PN: A/P - Time Spent With Patient Total time spent is greater than 50% in coordination of care (as documented) at patient's floor/unit and/or counseling patient: Greater than 35 minutes - Narrative A/P Narrative: * Abdominal pain unclear etiology CT reveals 9 mm CBD stone. Surgery consulted. * Profuse diarrhea-rule out ischemic colitis C. difficile negative. Cultures negative. On empiric oral vancomycin * Hypercapnic respiratory failure due to COPD exacerbation-repeat ABGs today. * COPD exacerbation on steroids and bronchodilators * Sepsis with leukocytosis. Continue antibiotic coverage. Surgery consult to evaluate intra-abdominal source * Acute change in mental status-sepsis end organ dysfunction. Clinically improving * SIGRID-sepsis end organ dysfunction. Creatinine down from 2.2-1.6 * DM type II basal/sliding scale insulin * History of CAD HTN-oral meds- Plavix/aspirin/statin/metoprolol * Chronic pain on fentanyl 75 * Hypothyroidism on thyroxine * History of BPH on Proscar/tamsulosin * Prophylaxis on heparin * Neuropathy on Lyrica * Full code Plan * Surgery consult * Repeat ABG * PICC line * Continue antibiotic coverage * Pre-existing medical condition management on home meds Medical - PN: Qual - VTE Deep Vein Thrombosis/Pulmonary Embolism Present on Admission: No
[2017-09-23 09:27] LABS: ALT/SGPT 19 U/l (0-40); Albumin/Globulin Ratio 1.1 (1.0-2.3); Alkaline Phosphatase 37 U/L (39-117); Bilirubin,Direct < 0.2 mg/dL (0.0-0.3); Blood Urea Nitrogen 59 mg/dl (8-23); Gamma Glutamyl Transpeptidase 25 U/L (8-61); Uric Acid 8.2 mg/dL (2.5-8.0)
[2017-09-23] MEDS ORDERED: PIPERACILLIN SODIUM/TAZOBACTAM 3.375 GM in DEXTROSE 5% IN WATER 50 ML IV SCH (09:30)
[2017-09-23] MEDS ORDERED: ONDANSETRON 4 MG/2 ML VIAL ONE (10:27)
[2017-09-23] MEDS: POTASSIUM CHLORIDE 20 MEQ TABLET PO SCH ×2 (10:42→17:56)
[2017-09-23] MEDS: predniSONE 20 MG TABLET PO SCH (10:42)
[2017-09-23] MEDS: FINASTERIDE 5 MG TABLET PO SCH (10:43)
[2017-09-23] MEDS: ASPIRIN 81 MG TAB.CHEW PO SCH (10:43)
[2017-09-23] MEDS: METOPROLOL TARTRATE 50 MG TABLET PO SCH ×2 (10:43→20:48)
[2017-09-23] MEDS: CLOPIDOGREL 75 MG TABLET PO SCH (10:43)
[2017-09-23] MEDS: PREGABALIN 75 MG CAPSULE PO SCH ×2 (10:43→20:47)
[2017-09-23] MEDS: MAGNESIUM OXIDE 400 MG TABLET PO SCH ×2 (10:43→20:48)
[2017-09-23] MEDS: TIOTROPIUM BROMIDE 18 MCG INHALANT INH SCH (10:44)
[2017-09-23] MEDS ORDERED: DOCUSATE SODIUM 100 MG CAPSULE PO PRN (10:47)
[2017-09-23] MEDS ORDERED: DEXTROSE 31 GM ORAL.SUSP PO PRN (10:47)
[2017-09-23] MEDS ORDERED: IPRATROPIUM/ALBUTEROL 3 ML AMPUL.NEB NEB PRN (10:47)
[2017-09-23] MEDS ORDERED: DEXTROSE 50% 50 ML VIAL IV PRN (10:47)
[2017-09-23] MEDS ORDERED: ACETAMINOPHEN 325 MG TABLET PO PRN (10:47)
--- NOTE | 2017-09-23 11:11 | XRay Report ---
INDICATION: PICC line placement TECHNIQUE: AP chest x-ray,portable semiupright COMPARISON: Previous examination dated 09/19/2017 FINDINGS:Left-sided PICC line with its tip at the junction of the brachiocephalic vein and superior vena cava. Previous median sternotomy. There is cardiomegaly. No pulmonary parenchymal infiltrates. No pulmonary edema. IMPRESSION: Left-sided PICC line at the junction of the brachiocephalic vein and superior vena cava Interpreted and Authenticated by: Mo Dotson 09/23/17
[2017-09-23 13:14] LABS: Basophils # (Auto) 0 K/mcL (0.0-0.3); Basophils % (Auto) 0 % (0.0-2.0); Eosinophils # (Auto) 0.1 K/mcL (0.0-0.7); Eosinophils % (Auto) 0.4 % (0.0-7.0); Granulocytes % (Auto) 89.2 % (38.0-78.0); Lymphocytes # (Auto) 0.7 K/mcL (1.5-4.8); Lymphocytes % (Auto) 5.6 % (15.5-49.0); Mean Cell Volume 83.5 fL (80.0-100.0); Mean Corpuscular HGB Conc 32.3 g/dL (31.0-36.0); Mean Corpuscular Hemoglobin 26.9 pg (26.0-34.0); Monocytes # (Auto) 0.6 K/mcL (0.1-0.9); Monocytes % (Auto) 4.8 % (1.0-12.0); Platelet Count 137 K/mcL (140-440); RBC 3.73 M/mcL (4.50-5.90); Red Cell Distribution Width 15.9 % (11.5-14.5)
--- NOTE | 2017-09-23 14:15 | General Surgery Consult Note ---
History of Present Illness Patient information: Note initiated : 09/23/17 at 2:01 pm Service Date, if different from initiated Date: [] Patient: Carmelo Stewart 72 y/o M admitted on 09/17/17 for Weakness/Pneumonia. Chief Complaint: [] Reason for consult: other (recurrent diarrhea and possible distal common bile duct stone) Requesting physician: Yang Wyatt History of present illness: 72-year-old male admitted on 17 september for altered mental status with acute exacerbation of renal failure with elevated BUN and creatinine. The patient was noted to have a possible infiltrate compatible with pneumonia though there were no findings to suggest acute pneumonia clinically. The renal failure was being treated and he was started on antibiotics. On 19 September he was noted to have acute onset of diarrhea with multiple watery stools. C. difficile was negative and routine stool cultures have been negative. On 20 September he developed nausea and vomiting and complained of abdominal pain. A CT of the abdomen and pelvis was done and this showed a possible 7 mm distal common bile duct stone and possible mesenteric edema. He also has diffuse calcification of his arterial tree in the abdomen. His LFTs have been negative without any demonstrable rise in bilirubin, transaminases, alkaline phosphatase. He had mild leukocytosis but this is probably related to his steroid therapy since his white blood count was normal on admission. His nausea has improved but his by mouth intake is decreased. He states that he does not have abdominal pain at this time but because of his altered mental status I'm unsure if his answers are appropriate and believable. His encephalopathy has improved as his BUN has decreased. I reviewed the CT with the radiologist who still feels that the stone is in the distal common bile duct in spite of the fact that the duct is only 8 mm and the stone is 7 mm. Review of Systems - Constitutional malaise, weakness, weight gain - Cardiovascular chest pain - Respiratory dyspnea on exertion, wheezing, chest congestion - Gastrointestinal diarrhea, nausea, vomiting - Genitourinary other (bladder outlet obstruction symptoms) - Integumentary other (chronic stasis edema of lower extremities with lichenification of the skin) - Psychiatric behavioral changes, confusion, difficulty concentrating, memory loss - Hematologic/Lymphatic no easy bleeding, no easy bruising, no lymphadenopathy Past History Past medical history: Chronic atrial fibrillation Congestive heart failure Heart obstructive lung disease Coronary artery disease Diabetes mellitus type 2 Gastroesophageal reflux disease Hypertension Posttraumatic stress disorder Hypertension Peripheral vascular disease Chronic kidney disease Degenerative dementia Depression Past surgical history: Coronary artery bypass graft 4 Cholecystectomy Parathyroidectomy Sinus surgery Past family history: Unobtainable from the patient or from the record Past social history: Every day smoker Prior history of alcohol use Medications and Allergies Home Medications Medication Instructions Recorded Confirmed Type fentanyl 75 mcg/hr transdermal 1 patch TRANSDERMA Q72H #10 patch 02/17/15 Rx patch acetaminophen 325 mg tablet 650 mg PO Q4H PRN 12/20/15 09/17/17 History aspirin 81 mg tablet 81 mg PO QAM 12/20/15 09/17/17 History atorvastatin 10 mg tablet 5 mg PO QHS tab 12/20/15 09/17/17 History bisacodyl 10 mg rectal suppository 10 mg VT ONCE PRN 12/20/15 09/17/17 History budesonide-formoterol HFA 80 1 inh INHALATION QDAY g 12/20/15 09/17/17 History mcg-4.5 mcg/actuation aerosol inhaler clopidogrel 75 mg tablet 75 mg PO QAM tab 12/20/15 09/17/17 History docusate sodium 100 mg capsule 100 mg PO BID PRN 12/20/15 09/17/17 History glucagon (human recombinant) 1 1 mg IM ONCE 12/20/15 09/17/17 History mg/mL solution for injection ipratropium-albuterol 0.5 mg-3 See Label Instructions INHALATION 12/20/15 History mg(2.5 mg base)/3 mL nebulization QID PRN ml soln linagliptin 5 mg tablet 5 mg PO QDAY 12/20/15 09/17/17 History magnesium oxide 400 mg tablet 400 mg PO BID 12/20/15 09/17/17 History tiotropium bromide 18 mcg capsule 1 cap INHALATION QDAY 12/20/15 09/17/17 History with inhalation device dimethicone 1.5 % topical cream 1.5 % TOPICAL BID PRN ml 01/05/16 09/17/17 History pregabalin 75 mg capsule 75 mg PO BID #14 cap 03/22/16 09/17/17 Rx oxycodone 7.5 mg tablet,oral ONLY 7.5 mg PO BIDP PRN 05/09/16 09/17/17 History (not for feeding tubes) insulin glargine (U-100) 100 33 unit SUB-Q QHS ml 07/11/16 09/17/17 History unit/mL subcutaneous solution levothyroxine 125 mcg tablet 125 mcg PO HS 10/15/16 09/17/17 History hydralazine 10 mg tablet 10 mg PO TID PRN #30 tab 01/16/17 09/17/17 Rx ferrous sulfate 325 mg (65 mg 325 mg PO QDAY tab 07/31/17 09/17/17 History iron) tablet bumetanide 1 mg tablet 1 mg PO BID tab 09/05/17 09/17/17 History Finasteride [Proscar] 5 mg PO DAILY 09/17/17 09/17/17 History Metolazone [Zaroxolyn] 2.5 mg PO UD 09/17/17 09/17/17 History Potassium Chloride [K-Tab ER] 20 meq PO BID 09/17/17 09/17/17 History Tamsulosin HCl [Flomax] 0.4 mg PO HS 09/17/17 09/17/17 History Tolnaftate [Antifungal] 113.3 gm TP PRN PRN 09/17/17 09/17/17 History Allergies Allergy/AdvReac Type Severity Reaction Status Date / Time meperidine AdvReac Intermediate Shortness Verified 09/19/17 08:04 of Breath Exam Temp Pulse Resp BP Pulse Ox 97.7 F 72 16 141/63 100 09/23/17 11:52 09/23/17 11:52 09/23/17 11:52 09/23/17 11:52 09/23/17 11:52 - General physical appearance well developed, well nourished, no distress, moderate distress, moderate pain, chronically ill, obese - Eyes PERRL, normal ocular movement. negative: icteric - ENT normal pinna, normal nares, normal mucosa, no hearing loss, no congestion - Head Head exam IM: Present: atraumatic, normocephalic - Neck no masses, no bruits, trachea midline, no lymphadectomy, no venous distension - Cardiovascular Cardiovascular exam IM: Present: normal rate and rhythm, +S1, +S2, tachycardia. Absent: irregular rhythm, JVD - Respiratory normal expansion, normal respiratory effort, other (gross tubular breath sounds bilaterally with coarse wheezes bilaterally) - Abdomen Abdomen: Present: soft, bowel sounds, distended (distended and tympanitic with minimal tenderness in mid abdomen; no guarding; good active bowel sounds) Hernia: Present: none - Genitourinary Present: normal penis with no external lesions - Integumentary Present: no growths, other (chronic stasis changes of both legs) - Neurologic Present: normal coordination, normal sensation, disoriented, confused, memory loss - Musculoskeletal Present: other (gait and stance aren't tested) - Psychiatric Present: other (disoriented at this time) Results - Labs 09/23/17 12:25 09/23/17 07:38 Abnormal lab results 09/23/17 09/23/17 Range/Units 07:38 12:25 WBC 12.4 H (4.5-11.0) K/mcL RBC 3.73 L (4.50-5.90) M/mcL Hgb 10.0 L (13.5-16.5) g/dL Hct 31.1 L (41.0-55.0) % RDW 15.9 H (11.5-14.5) % Plt Count 137 L (140-440) K/mcL Gran % 89.2 H (38.0-78.0) % Lymph % (Auto) 5.6 L (15.5-49.0) % Gran # 11.1 H (1.8-8.0) K/mcL Lymph # (Auto) 0.7 L (1.5-4.8) K/mcL Carbon Dioxide 32 H (22-30) mmol/L BUN 59 H (8-23) mg/dl Creatinine 1.6 H (0.7-1.2) mg/dl Glucose 171 H (70-105) mg/dL Uric Acid 8.2 H (2.5-8.0) mg/dL Calcium 7.8 L (8.6-10.4) mg/dl Alkaline Phosphatase 37 L (39-117) U/L Lactate Dehydrogenase 329 H (94-250) U/L Total Protein 5.8 L (5.9-8.4) gm/dL Albumin 3.0 L (3.2-5.2) gm/dL Triglycerides 329 H (<150) mg/dl Diabetes panel 09/23/17 Range/Units 07:38 Sodium 144 (133-145) mmol/L Potassium 4.7 (3.3-5.1) mmol/L Chloride 99 (96-108) mmol/L Carbon Dioxide 32 H (22-30) mmol/L BUN 59 H (8-23) mg/dl Creatinine 1.6 H (0.7-1.2) mg/dl Glucose 171 H (70-105) mg/dL Calcium 7.8 L (8.6-10.4) mg/dl AST 16 (0-37) U/l ALT 19 (0-40) U/l Alkaline Phosphatase 37 L (39-117) U/L Total Protein 5.8 L (5.9-8.4) gm/dL Albumin 3.0 L (3.2-5.2) gm/dL Triglycerides 329 H (<150) mg/dl Calcium panel 09/23/17 Range/Units 07:38 Calcium 7.8 L (8.6-10.4) mg/dl Phosphorus 2.8 (2.7-4.5) mg/dL Albumin 3.0 L (3.2-5.2) gm/dL Pituitary panel 09/23/17 Range/Units 07:38 Sodium 144 (133-145) mmol/L Potassium 4.7 (3.3-5.1) mmol/L Chloride 99 (96-108) mmol/L Carbon Dioxide 32 H (22-30) mmol/L BUN 59 H (8-23) mg/dl Creatinine 1.6 H (0.7-1.2) mg/dl Glucose 171 H (70-105) mg/dL Calcium 7.8 L (8.6-10.4) mg/dl Adrenal panel 09/23/17 Range/Units 07:38 Sodium 144 (133-145) mmol/L Potassium 4.7 (3.3-5.1) mmol/L Chloride 99 (96-108) mmol/L Carbon Dioxide 32 H (22-30) mmol/L BUN 59 H (8-23) mg/dl Creatinine 1.6 H (0.7-1.2) mg/dl Glucose 171 H (70-105) mg/dL Calcium 7.8 L (8.6-10.4) mg/dl Total Bilirubin 0.4 (0.0-1.0) mg/dL AST 16 (0-37) U/l ALT 19 (0-40) U/l Alkaline Phosphatase 37 L (39-117) U/L Total Protein 5.8 L (5.9-8.4) gm/dL Albumin 3.0 L (3.2-5.2) gm/dL All other labs normal. Assessment and Plan (1) Common bile duct calculus In spite of CT evidence of possible calculus of distal common bile duct, the patient does not have a significant dilation of the duct that one would expect with the size of the stone and his bilirubin and liver function tests are all normal even the alkaline phosphatase. will order upper abdominal ultrasound to try to determine if the defect seen is actually in the common bile duct or in the surrounding pancreatic tissue An MRCP will be of much better benefit however with his present mental state he will not tolerate being in the MRI scanner In view of normal transaminases and bilirubin an ERCP is not indicated unless we can prove definitively that the stone is in the duct. I do not think that his upper abdominal symptoms are related to this stone as seen radiographically. Status: Acute (2) Acute diarrhea Since stool sample for fecal leukocytes If fecal leukocytes are negative with suggest starting on mild antidiarrheal agent Status: Acute (3) Right lower lobe pneumonia Recent chest x-ray looks very good without infiltrate Status: Acute Qualifiers: Pneumonia type: due to unspecified organism Qualified Code(s): J18.1 - Lobar pneumonia, unspecified organism (4) Chronic pain syndrome Status: Chronic (5) Hypertension Status: Chronic (6) CAD (coronary artery disease) Status: Chronic (7) Atrial fibrillation Status: Chronic (8) PVD (peripheral vascular disease) Status: Chronic (9) DM (diabetes mellitus), type 2 with peripheral vascular complications Status: Chronic (10) CKD (chronic kidney disease) Status: Chronic Qualifiers: Chronic kidney disease stage: stage 4 (severe) Qualified Code(s): N18.4 - Chronic kidney disease, stage 4 (severe) (11) COPD (chronic obstructive pulmonary disease) Status: Chronic
--- NOTE | 2017-09-23 14:41 | Ultrasound Report ---
CLINICAL INFORMATION: Possible choledocholithiasis demonstrated on CT scan TECHNIQUE: Portable limited ultrasound COMPARISON: Abdomen and pelvis CT scan 09/22/2017 FINDINGS: Previous CT scan demonstrated probable choledocholithiasis. Common bile that measures 10 to 13 mm at this time. The distal common bile duct is not identified due to bowel gas and patient's body habitus. No definite choledocholithiasis although this diagnosis is not excluded. Pancreatic duct is mildly prominent measuring 3 mm. If clinically indicated MRCP may be helpful for further evaluation IMPRESSION: 1. Dilated common bile duct. Common bile duct stone is not identified but the entire common bile duct is not visible. 2. Mildly dilated pancreatic duct Interpreted and Authenticated by: Mo Dotson 09/23/17
[2017-09-23 14:42] LABS: Blood Urea Nitrogen 61; Uric Acid 7.3
[2017-09-23 14:43] LABS: ALT/SGPT 25; Albumin 3.4; Bilirubin,Direct < 0.2; Gamma Glutamyl Transpeptidase 38
[2017-09-23 14:44] LABS: Albumin/Globulin Ratio 0.9; Alkaline Phosphatase 51 U/L
[2017-09-23 14:47] LABS: Mean Cell Volume 84.4; RBC 4.37
[2017-09-23 14:48] LABS: Basophils % (Auto) 0.2; Eosinophils # (Auto) 0; Eosinophils % (Auto) 0.1; Granulocytes % (Auto) 82.8; Lymphocytes # (Auto) 1.4; Mean Corpuscular HGB Conc 31.9; Mean Corpuscular Hemoglobin 26.9; Monocytes # (Auto) 1.2; Monocytes % (Auto) 7.9; Platelet Count 167; Red Cell Distribution Width 16.2
[2017-09-23 14:49] LABS: Basophils # (Auto) 0
--- NOTE | 2017-09-23 16:24 | General Surgery Progress Note ---
Subjective Narrative: Note initiated : 09/23/17 at 4:22 pm Service Date, if different from initiated Date: [] Patient: Carmelo Stewart 72 y/o M admitted on 09/17/17 for Weakness/Pneumonia. Chief Complaint: []Wound Care F/U Note. I saw patient and reviewed interval developments since last seen Noted Dr. Andrea 's surgical consult. Patient is now alert and cooperative and denies any acute symptoms. His Dry scaly dermatitis of both legs has improved significantly with local care and moisture management. Objective Temp Pulse Resp BP Pulse Ox 97.7 F 72 16 141/63 100 09/23/17 11:52 09/23/17 11:52 09/23/17 11:52 09/23/17 11:52 09/23/17 11:52 AVSS. No acute changes in JADE/ L/E. Satisfactory resolution of dry scales and dermatitis of both legs. - Additional Data Intake & Output - Last 24 hours: Intake & Output 09/21/17 09/22/17 09/23/17 09/24/17 05:59 05:59 05:59 05:59 Intake Total 2070 / 2070 1580 / 1580 1020 / 1020 590 / 590 Output Total 1675 / 1675 350 / 350 1604 / 1604 Balance 395 / 395 1230 / 1230 -584 / -584 590 / 590 Weight 246 lb 8 oz 245 lb 12.8 oz 250 lb 4 oz 250 lb 4 oz - Labs 09/23/17 12:25 09/23/17 07:38 Diabetes panel 09/21/17 09/23/17 Range/Units 04:20 07:38 Sodium 149 144 Potassium 4.3 4.7 Chloride 102 99 Carbon Dioxide 34 32 H BUN 61 59 H Creatinine 2.0 1.6 H Glucose 94 171 H Calcium 9.5 7.8 L AST 28 16 ALT 25 19 Alkaline Phosphatase 51 37 L U/L Total Protein 7.0 5.8 L Albumin 3.4 3.0 L Triglycerides 339 329 H Calcium panel 09/21/17 09/23/17 Range/Units 04:20 07:38 Calcium 9.5 7.8 L Phosphorus 3.4 2.8 Albumin 3.4 3.0 L Pituitary panel 09/21/17 09/23/17 Range/Units 04:20 07:38 Sodium 149 144 Potassium 4.3 4.7 Chloride 102 99 Carbon Dioxide 34 32 H BUN 61 59 H Creatinine 2.0 1.6 H Glucose 94 171 H Calcium 9.5 7.8 L Adrenal panel 09/21/17 09/23/17 Range/Units 04:20 07:38 Sodium 149 144 Potassium 4.3 4.7 Chloride 102 99 Carbon Dioxide 34 32 H BUN 61 59 H Creatinine 2.0 1.6 H Glucose 94 171 H Calcium 9.5 7.8 L Total Bilirubin 0.3 0.4 AST 28 16 ALT 25 19 Alkaline Phosphatase 51 37 L U/L Total Protein 7.0 5.8 L Albumin 3.4 3.0 L Assessment and Plan (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 NO evidence of acute infection or cellulitis. Status: Chronic Current Visit: Yes - Narrative A/P Narrative: Assessment: Satisfactory progress from skin and wound care point of view. Plan: Continue current management. Spoke with Stephanie PERALTA taking care of Mr. Stewart today. Will see again PRN basis whilst he is in hospital. Please refer him back to wound care clinic after discharge. - Time Spent With Patient Total time spent is greater than 50% in coordination of care (as documented) at patient's floor/unit and/or counseling patient: less than 15 minutes
[2017-09-23] MEDS: ONDANSETRON 4 MG/2 ML VIAL IV PRN (17:42)
[2017-09-23] MEDS: PIPERACILLIN SODIUM/TAZOBACTAM 3.375 GM in DEXTROSE 5% IN WATER 50 ML IV SCH ×2 (17:45→21:39)
[2017-09-23] MEDS: ATORVASTATIN 20 MG TABLET PO SCH (20:47)
[2017-09-23] MEDS: LEVOTHYROXINE 125 MCG TABLET PO SCH (20:48)
[2017-09-23] MEDS: TAMSULOSIN 0.4 MG CAPSULE PO SCH (20:48)
[2017-09-23] MEDS ORDERED: 0.9 % SODIUM CHLORIDE 10 ML SYRINGE IV SCH (21:00)
[2017-09-24] MEDS: PIPERACILLIN SODIUM/TAZOBACTAM 3.375 GM in DEXTROSE 5% IN WATER 50 ML IV SCH ×4 (03:40→21:46)
[2017-09-24 05:05] LABS: Basophils # (Auto) 0 K/mcL (0.0-0.3); Basophils % (Auto) 0 % (0.0-2.0); Eosinophils # (Auto) 0.2 K/mcL (0.0-0.7); Eosinophils % (Auto) 1.5 % (0.0-7.0); Granulocytes % (Auto) 88.7 % (38.0-78.0); Lymphocytes # (Auto) 0.5 K/mcL (1.5-4.8); Lymphocytes % (Auto) 3.6 % (15.5-49.0); Mean Cell Volume 85.2 fL (80.0-100.0); Mean Corpuscular HGB Conc 32.3 g/dL (31.0-36.0); Mean Corpuscular Hemoglobin 27.6 pg (26.0-34.0); Monocytes # (Auto) 0.9 K/mcL (0.1-0.9); Monocytes % (Auto) 6.2 % (1.0-12.0); Platelet Count 143 K/mcL (140-440); RBC 3.53 M/mcL (4.50-5.90); Red Cell Distribution Width 16.4 % (11.5-14.5)
[2017-09-24 05:26] LABS: ALT/SGPT 15 U/l (0-40); Albumin 2.8 gm/dL (3.2-5.2); Albumin/Globulin Ratio 1.1 (1.0-2.3); Alkaline Phosphatase 32 U/L (39-117); Bilirubin,Direct < 0.2 mg/dL (0.0-0.3); Blood Urea Nitrogen 51 mg/dl (8-23); Gamma Glutamyl Transpeptidase 23 U/L (8-61)
[2017-09-24] MEDS: 0.9 % SODIUM CHLORIDE 10 ML SYRINGE IV SCH ×5 (05:58→22:24)
[2017-09-24] MEDS: INSULIN NPH, HUMAN 1 UNIT/0.01 ML UNIT SQ SCH ×2 (09:14→17:34)
[2017-09-24] MEDS: INSULIN LISPRO 1 UNIT/0.01 ML UNIT SQ SCH ×4 (09:15→20:40)
[2017-09-24] MEDS: ONDANSETRON 4 MG/2 ML VIAL IV PRN (09:44)
[2017-09-24] MEDS: POTASSIUM CHLORIDE 20 MEQ TABLET PO SCH ×2 (10:20→17:34)
[2017-09-24] MEDS: ASPIRIN 81 MG TAB.CHEW PO SCH (10:21)
[2017-09-24] MEDS: predniSONE 20 MG TABLET PO SCH (10:21)
[2017-09-24] MEDS: PREGABALIN 75 MG CAPSULE PO SCH ×2 (10:22→20:40)
[2017-09-24] MEDS: MAGNESIUM OXIDE 400 MG TABLET PO SCH (10:22)
[2017-09-24] MEDS: CLOPIDOGREL 75 MG TABLET PO SCH (10:22)
[2017-09-24] MEDS: METOPROLOL TARTRATE 50 MG TABLET PO SCH ×2 (10:22→20:40)
[2017-09-24] MEDS: FINASTERIDE 5 MG TABLET PO SCH (10:23)
[2017-09-24] MEDS: TIOTROPIUM BROMIDE 18 MCG INHALANT INH SCH (10:24)
--- NOTE | 2017-09-24 11:04 | Internal Med Progress Note ---
Medical - PN: Subj Patient information: Note initiated : 09/24/17 at 11:01 am Service Date, if different from initiated Date: [] Patient: Carmelo Stewart 72 y/o M admitted on 09/17/17 for Weakness/Pneumonia. Chief Complaint: [] Interval history: Mr. Stewart is a 72 year old Male with multiple medical issues, [facility] after being confused and drowsy since this AM, no other history available, apart from possible fall yesterday In the ER pt was solmenent and only wakes up to verbal of touch, does not open eyes spontaneously, he tries to answer questions but unable to provide any meaninful input. I am aware that the ER provider tried to ask him if he would like to be cardioverted, and he noted yes, I doubt if he comphreneds enough to provide any meaningful answer to that question. Workup in the ER, showed stable vital signs. WBC count of 9.0, no left shift, hemoglobin 9.6 platelets 161. Sodium 143, potassium 3.3, chloride 91, bicarbonate 39 elevated from before, BUN is 102 elevated from baseline for him 60-70, creatinine is 2.2, glucose 243. Calcium is 11.3 elevated. Lactic acid 1.4, troponin 0 0.18 patient has had chronic elevation of troponins in the past but not this high usually highest was 0.1 to a couple of years ago. Patient has CK and CK-MB levels which are normal. BNP is 1861. Ammonia level 17. ABG shows pH of 7.5 to-PCO2 58-p.o. 203. Chest x-ray shows possible pneumonia in the right base, EKG shows sinus rhythm few PACs, left axis left anterior vascular block, T-wave inversions in the lateral leads, QS patterns V1 V2, Head CT neg. His case was reviewed by [employer] Super[employer] Dr Butt, who noted that his rise in troponin is non cardiac in nature, and did not want pt to be transferred to higher center. 09/18 Pt seen examined, no acute ovenright issues, mental status better, he is more agitated and angry, rude with the nursing staff, it seems this is his baseilne status. trop trended up, and is now trending down, he did have afib with rvr which may have contributed to some rise in trop. repeat again in AM continue with gentole hydration and see how he does in AM, 09/19 pt seen examined, labs show leucocytosis but improving bun pt mental status is better, but keeps yelling help me all the time, whenever there is no one in the room he gets anxious will resume his home fentanyl dose and see how he does his exam had shantelle basilar crackles, CXR is neg for fluid overload change ns to half ns given hypernatremia on labs today continue duonebs and steroids ans he still has some wheeze on exam continue abx for possible hcap pna goes in intermittent afib with rvr,started on metoprolol 25mg bid 09/23- CT abdomen reveals 9 mm distal common bile duct stone. Persistent diarrhea along with nausea and abdominal pain. Persistent confusion. White count 14.7. C. difficile negative. Stool cultures negative. Case discussed with surgery. PICC line placement today. White count 12.4 creatinine 1.6, 09/24- patient seen in room. Case discussed with surgery. Possible ischemic colitis. Stool studies have been negative. White count 14.8. Creatinine 1.7. No significant overnight events except for persistent watery diarrhea. Start bulk forming supplements. Continue physical therapy. Abdominal pain improved. Intermittent confusion. No overnight fever chills. 09/25- patient doing a lot better. Improved diarrhea. Improved delirium and confusion. No overnight telemetry events. Abdominal pain much improved. White count 16.4. Negative stool cultures/C. difficile. DC antibiotics. Case discussed with surgery. Per surgeon unlikely choledocholithiasis and CBD dilation represents normal postcholecystectomy change. Continue physical therapy. Transfer to medical floor today. Anticipate discharge to SNF . - Constitutional Vitals: Vital Signs Temp Pulse Resp BP Pulse Ox 97.3 F 78 16 153/124 97 09/24/17 07:01 09/24/17 07:01 09/24/17 07:01 09/24/17 07:01 09/24/17 07:01 Period Temp Pulse Resp BP Sys/Mcneill Pulse Ox Last 24 Hr 97.0 F-98.2 F 72-82 12-18 109-157/51-124 96-100 Intake and Output 09/23/17 09/24/17 09/24/17 21:59 05:59 13:59 Intake Total 250 / 250 700 / 700 Output Total 377 / 377 2 / 2 Balance -127 / -127 698 / 698 Weight 246 lb 4.8 oz Intake & Output: Intake & Output 09/23/17 09/24/17 09/24/17 21:59 05:59 13:59 Intake Total 250 / 250 700 / 700 Output Total 377 / 377 2 / 2 Balance -127 / -127 698 / 698 Weight 246 lb 4.8 oz Intake: IV 50 / 50 100 / 100 Zosyn 3.375 gm In Dextrose 5% 50 / 50 100 / 100 in Water 50 ml @ 100 mls/hr IV Q6H [facility] Rx#:[id number] Oral 200 / 200 600 / 600 Output: Void Amount 375 / 375 # of times incontinent of urine Other: Stool Consistency Liquid Watery General appearance: no acute distress Exam: Persistent watery diarrhea Anxious No labored breathing No overnight telemetry events Distended abdomen Medical - PN: Obj Da - Labs CBC & Chem 7: 09/25/17 03:58 09/25/17 03:58 Labs: Abnormal Lab Results 09/24/17 09/24/17 09/23/17 03:36 03:36 12:25 WBC 14.8 H 12.4 H RBC 3.53 L 3.73 L Hgb 9.7 L 10.0 L Hct 30.1 L 31.1 L RDW 16.4 H 15.9 H Plt Count 137 L MPV Gran % 88.7 H 89.2 H Lymph % (Auto) 3.6 L 5.6 L Gran # 13.1 H 11.1 H Lymph # (Auto) 0.5 L 0.7 L Lymphocytes % RBC Morphology Anisocytosis Carbon Dioxide 33 H BUN 51 H Creatinine 1.7 H Glucose 202 H Uric Acid Calcium 7.3 L Alkaline Phosphatase 32 L Lactate Dehydrogenase Total Protein 5.3 L Albumin 2.8 L Triglycerides 268 H 09/23/17 09/22/17 09/22/17 07:38 07:15 04:20 WBC 14.7 H RBC 3.98 L Hgb 10.8 L Hct 33.2 L RDW 16.2 H Plt Count MPV 10.9 H Gran % Lymph % (Auto) Gran # Lymph # (Auto) Lymphocytes % 11 L RBC Morphology Abnorm A Anisocytosis 1+ A Carbon Dioxide 32 H 34 H BUN 59 H 69 H Creatinine 1.6 H 2.2 H Glucose 171 H 214 H Uric Acid 8.2 H Calcium 7.8 L 8.5 L Alkaline Phosphatase 37 L Lactate Dehydrogenase 329 H 259 H Total Protein 5.8 L 5.8 L Albumin 3.0 L 3.0 L Triglycerides 329 H 384 H Meds: Medications Acetaminophen (Tylenol) 650 mg PO Q6HP PRN PRN Reason: PAIN/FEVER > 101 Albuterol/Ipratropium (Duoneb) 3 ml NEB QIDP PRN PRN Reason: Shortness Of Breath Aspirin (Aspirin) 81 mg PO DAILY [facility] Last Admin: 09/24/17 10:21 Dose: 81 mg Atorvastatin Calcium (Lipitor) 5 mg PO HS [facility] Last Admin: 09/23/17 20:47 Dose: 5 mg Clopidogrel Bisulfate (Plavix) 75 mg PO QAM [facility] Last Admin: 09/24/17 10:22 Dose: 75 mg Dextrose (Dextrose 50%) 0 ml IV UD PRN PRN Reason: Hypoglycemia Diagnostic Test (Pha) (Accu-Chek) 1 each FS ACHS [facility] Last Admin: 09/24/17 09:14 Dose: 1 each Docusate Sodium (Colace) 100 mg PO BID PRN PRN Reason: Constipation Fentanyl (Duragesic) 75 mcg TD Q72H [facility] Finasteride (Proscar) 5 mg PO DAILY [facility] Last Admin: 09/24/17 10:23 Dose: 5 mg Glucose (Insta-Glucose) 15 gm PO PRN PRN PRN Reason: Hypoglycemia Heparin Sodium (Porcine) (Heparin Flush) 2 ml IV Q12 [facility] Last Admin: 09/24/17 10:21 Dose: 2 ml Piperacillin Sod/Tazobactam (Sod 3.375 gm/ Dextrose) 50 mls @ 100 mls/hr IV Q6H [facility] Last Admin: 09/24/17 10:24 Dose: 100 mls/hr Insulin Human Lispro (Humalog) 0 unit SQ [facility] PRN Reason: Protocol Last Admin: 09/24/17 09:15 Dose: 2 unit Insulin Human NPH (Humalin N) 30 unit SQ BIDAC [facility] Last Admin: 09/24/17 09:14 Dose: 30 unit Levothyroxine Sodium (Synthroid) 125 mcg PO HS [facility] Last Admin: 09/23/17 20:48 Dose: 125 mcg Magnesium Oxide (Magnesium Oxide) 400 mg PO BID [facility] Last Admin: 09/24/17 10:22 Dose: 400 mg Metoprolol Tartrate (Lopressor) 100 mg PO BID [facility] Last Admin: 09/24/17 10:22 Dose: 100 mg Ondansetron HCl (Zofran) 4 mg IV Q4-6HP PRN PRN Reason: Nausea And Vomiting Last Admin: 09/24/17 09:44 Dose: 4 mg Oxycodone/Acetaminophen (Percocet 10-325mg) 1 tab PO Q6HP PRN PRN Reason: PAIN LEVEL 3-6 Last Admin: 09/23/17 20:47 Dose: 1 tab Potassium Chloride (Kdur) 20 meq PO BIDCC [facility] Last Admin: 09/24/17 10:20 Dose: 20 meq Prednisone (Prednisone) 20 mg PO QAMCC [facility] Last Admin: 09/24/17 10:21 Dose: 20 mg Pregabalin (Lyrica) 75 mg PO BID [facility] Last Admin: 09/24/17 10:22 Dose: 75 mg Sodium Chloride (Saline Flush) 10 ml IV UD PRN PRN Reason: FLUSH Sodium Chloride (Saline Flush) 10 ml IV Q8 [facility] Last Admin: 09/24/17 05:58 Dose: 10 ml Sodium Chloride (Saline Flush) 10 ml IV Q12 [facility] Last Admin: 09/24/17 10:23 Dose: 10 ml Tamsulosin HCl (Flomax) 0.4 mg PO HS [facility] Last Admin: 09/23/17 20:48 Dose: 0.4 mg Tiotropium [place] (Spiriva) 18 mcg INH QDAY [facility] Last Admin: 09/24/17 10:24 Dose: Not Given Medical - PN: A/P - Time Spent With Patient Total time spent is greater than 50% in coordination of care (as documented) at patient's floor/unit and/or counseling patient: 15 - 24 minutes - Narrative A/P Narrative: * Abdominal pain unclear etiology CT reveals 9 mm CBD stone. Ultrasound reveals dilated common bile duct 10-13 mm but no CBD stone. Discussed with surgery. Surgeon feels it's likely secondary to increased biliary flow and normal post cholecystectomy finding * Profuse watery diarrhea- likely ischemic colitis. Much improved on bulk forming agents. * Hypercapnic respiratory failure due to COPD exacerbation. On CPAP * COPD exacerbation -continue oral steroids for additional 48 hours along with inhaled bronchodilators * Leukocytosis at 16.4. DC antibiotics as no clear source. Negative cultures to date. Negative C. difficile. Likely steroid response. Trend white count * Subcutaneous soft tissue density overlying the right hemithorax. US soft tissue mass today * Acute change in mental status-clinically back to baseline. * Chronic kidney disease creatinine 1.7 * DM type II basal/sliding scale insulin * History of CAD HTN-oral meds- Plavix/aspirin/statin/metoprolol * Chronic pain on fentanyl 75 * Hypothyroidism on thyroxine * History of BPH on Proscar/tamsulosin * Prophylaxis on heparin * Neuropathy on Lyrica * Full code Plan * DC antibiotic * Transferred to [facility] * Ultrasound soft tissue mass right hemithorax * Pre-existing medical condition management on home meds * Discharge coordination per case management Medical - PN: Qual - VTE Deep Vein Thrombosis/Pulmonary Embolism Present on Admission: No
--- NOTE | 2017-09-24 14:49 | General Surgery Progress Note ---
Subjective Patient reports: feels better, still having pain, flatus, diarrhea, afebrile Narrative: Note initiated : 09/24/17 at 2:46 pm Service Date, if different from initiated Date: [] Patient: Carmelo Stewart 72 y/o M admitted on 09/17/17 for Weakness/Pneumonia. Chief Complaint: [Patient still has mid and lower abdominal pain. He still has episodic diarrhea. Fecal leukocytes were positive suggesting colonic inflammation which may be ischemic or infectious bone no pathogenic organism was cultured. His appetite remains poor. Ultrasound of the upper abdomen reveals dilated common bile duct but no definitive stone since the distal duct was not visualized. The patient's LFTs remain normal suggesting that there is no true obstruction in the biliary system. Discussed this with Dr. Redmond and I do not think we need to pursue this further. Though an MRCP would be helpful I do not think he would do well in the in the machine because of his mental confusion. He does not need an ERCP ] Objective Temp Pulse Resp BP Pulse Ox 97.9 F 65 16 128/60 98 09/24/17 12:00 09/24/17 12:00 09/24/17 12:00 09/24/17 12:00 09/24/17 12:00 - Additional Data Intake & Output - Last 24 hours: Intake & Output 09/22/17 09/23/17 09/24/17 09/25/17 05:59 05:59 05:59 05:59 Intake Total 1580 / 1580 1020 / 1020 1540 / 1540 Output Total 350 / 350 1604 / 1604 379 / 379 Balance 1230 / 1230 -584 / -584 1161 / 1161 Weight 245 lb 12.8 oz 250 lb 4 oz 246 lb 4.8 oz - General physical appearance no distress, moderate pain - Eyes PERRL, normal ocular movement - ENT normal pinna (3-4 times), normal nares, normal mucosa, no hearing loss, no congestion - Neck no masses, no bruits, trachea midline, no lymphadectomy, no venous distension - Respiratory other (Coarse tubular breath sounds bilaterally) - Cardiovascular Cardiovascular exam: Present: normal rate and rhythm, RRR, +S1, +S2, tachycardia. Absent: JVD - Abdomen tender (Moderate distention and tympanitic with mild tenderness lower abdomen to the right of midline no epigastric or right upper quadrant tenderness noted) - Integumentary no rash, no growths, no abnormal pigmentation - Neurologic normal coordination, normal sensation - Psychiatric oriented to person - Labs 09/24/17 03:36 09/24/17 03:36 Diabetes panel 09/21/17 09/24/17 Range/Units 04:20 03:36 Sodium 149 142 Potassium 4.3 4.2 Chloride 102 100 Carbon Dioxide 34 33 H BUN 61 51 H Creatinine 2.0 1.7 H Glucose 94 202 H Calcium 9.5 7.3 L AST 28 11 ALT 25 15 Alkaline Phosphatase 51 32 L U/L Total Protein 7.0 5.3 L Albumin 3.4 2.8 L Triglycerides 339 268 H Calcium panel 09/21/17 09/24/17 Range/Units 04:20 03:36 Calcium 9.5 7.3 L Phosphorus 3.4 2.7 Albumin 3.4 2.8 L Pituitary panel 09/21/17 09/24/17 Range/Units 04:20 03:36 Sodium 149 142 Potassium 4.3 4.2 Chloride 102 100 Carbon Dioxide 34 33 H BUN 61 51 H Creatinine 2.0 1.7 H Glucose 94 202 H Calcium 9.5 7.3 L Adrenal panel 09/21/17 09/24/17 Range/Units 04:20 03:36 Sodium 149 142 Potassium 4.3 4.2 Chloride 102 100 Carbon Dioxide 34 33 H BUN 61 51 H Creatinine 2.0 1.7 H Glucose 94 202 H Calcium 9.5 7.3 L Total Bilirubin 0.3 0.3 AST 28 11 ALT 25 15 Alkaline Phosphatase 51 32 L U/L Total Protein 7.0 5.3 L Albumin 3.4 2.8 L Assessment and Plan (1) Common bile duct calculus Status: Acute Assessment and plan: Radiographic evidence of distal common bile duct stone without confirmation by history, physical exam or follow-up ultrasound. No further workup needed. Current Visit: Yes (2) Acute diarrhea Status: Acute Assessment and plan: Fecal leukocytes positive suggesting inflammatory colitis. We will treat with Pepto-Bismol if other anti-diarrheal skin not be used Current Visit: Yes (3) Right lower lobe pneumonia Status: Acute Current Visit: No (4) Chronic pain syndrome Status: Chronic Current Visit: No (5) Hypertension Status: Chronic Current Visit: No (6) CAD (coronary artery disease) Status: Chronic Current Visit: No (7) Atrial fibrillation Status: Chronic Current Visit: No (8) PVD (peripheral vascular disease) Status: Chronic Current Visit: No (9) DM (diabetes mellitus), type 2 with peripheral vascular complications Status: Chronic Current Visit: No (10) CKD (chronic kidney disease) Status: Chronic Current Visit: No (11) COPD (chronic obstructive pulmonary disease) Status: Chronic Current Visit: No - Time Spent With Patient Total time spent is greater than 50% in coordination of care (as documented) at patient's floor/unit and/or counseling patient:
[2017-09-24] MEDS ORDERED: OLANZapine 2.5 MG TABLET PO PRN (17:16)
[2017-09-24] MEDS ORDERED: LOPERAMIDE 2 MG CAPSULE PO PRN (17:18)
[2017-09-24] MEDS: oxyCODONE/APAP 10/325MG TABLET PO PRN (17:34)
[2017-09-24] MEDS: TAMSULOSIN 0.4 MG CAPSULE PO SCH (20:40)
[2017-09-24] MEDS: ATORVASTATIN 20 MG TABLET PO SCH (20:40)
[2017-09-24] MEDS: LEVOTHYROXINE 125 MCG TABLET PO SCH (21:43)
[2017-09-25] MEDS: PIPERACILLIN SODIUM/TAZOBACTAM 3.375 GM in DEXTROSE 5% IN WATER 50 ML IV SCH (03:15)
[2017-09-25] MEDS: 0.9 % SODIUM CHLORIDE 10 ML SYRINGE IV SCH ×3 (05:37→20:09)
[2017-09-25 05:44] LABS: Basophils # (Auto) 0 K/mcL (0.0-0.3); Basophils % (Auto) 0 % (0.0-2.0); Eosinophils # (Auto) 0.1 K/mcL (0.0-0.7); Eosinophils % (Auto) 0.6 % (0.0-7.0); Granulocytes % (Auto) 91.7 % (38.0-78.0); Lymphocytes # (Auto) 0.7 K/mcL (1.5-4.8); Lymphocytes % (Auto) 4.4 % (15.5-49.0); Mean Cell Volume 85.1 fL (80.0-100.0); Mean Corpuscular HGB Conc 32.2 g/dL (31.0-36.0); Mean Corpuscular Hemoglobin 27.4 pg (26.0-34.0); Monocytes # (Auto) 0.5 K/mcL (0.1-0.9); Monocytes % (Auto) 3.3 % (1.0-12.0); Platelet Count 149 K/mcL (140-440); RBC 3.79 M/mcL (4.50-5.90); Red Cell Distribution Width 16.2 % (11.5-14.5)
[2017-09-25 05:59] LABS: ALT/SGPT 17 U/l (0-40); Albumin 3.3 gm/dL (3.2-5.2); Albumin/Globulin Ratio 1.2 (1.0-2.3); Alkaline Phosphatase 35 U/L (39-117); Bilirubin,Direct < 0.2 mg/dL (0.0-0.3); Blood Urea Nitrogen 43 mg/dl (8-23); Gamma Glutamyl Transpeptidase 26 U/L (8-61)
--- NOTE | 2017-09-25 09:35 | Internal Med Progress Note ---
Medical - PN: Subj Patient information: Note initiated : 09/25/17 at 9:33 am Service Date, if different from initiated Date: [] Patient: Carmelo Stewart 72 y/o M admitted on 09/17/17 for Weakness/Pneumonia. Chief Complaint: [] Interval history: Mr. Stewart is a 72 year old Male with multiple medical issues, presents to the ER from [place] after being confused and drowsy since this AM, no other history available, apart from possible fall yesterday In the ER pt was solmenent and only wakes up to verbal of touch, does not open eyes spontaneously, he tries to answer questions but unable to provide any meaninful input. I am aware that the ER provider tried to ask him if he would like to be cardioverted, and he noted yes, I doubt if he comphreneds enough to provide any meaningful answer to that question. Workup in the ER, showed stable vital signs. WBC count of 9.0, no left shift, hemoglobin 9.6 platelets 161. Sodium 143, potassium 3.3, chloride 91, bicarbonate 39 elevated from before, BUN is 102 elevated from baseline for him 60-70, creatinine is 2.2, glucose 243. Calcium is 11.3 elevated. Lactic acid 1.4, troponin 0 0.18 patient has had chronic elevation of troponins in the past but not this high usually highest was 0.1 to a couple of years ago. Patient has CK and CK-MB levels which are normal. BNP is 1861. Ammonia level 17. ABG shows pH of 7.5 to-PCO2 58-p.o. 203. Chest x-ray shows possible pneumonia in the right base, EKG shows sinus rhythm few PACs, left axis left anterior vascular block, T-wave inversions in the lateral leads, QS patterns V1 V2, Head CT neg. His case was reviewed by Safety Representative Dr Butt, who noted that his rise in troponin is non cardiac in nature, and did not want pt to be transferred to higher center. 09/18 Pt seen examined, no acute ovenright issues, mental status better, he is more agitated and angry, rude with the nursing staff, it seems this is his baseilne status. trop trended up, and is now trending down, he did have afib with rvr which may have contributed to some rise in trop. repeat again in AM continue with gentole hydration and see how he does in AM, 09/19 pt seen examined, labs show leucocytosis but improving bun pt mental status is better, but keeps yelling help me all the time, whenever there is no one in the room he gets anxious will resume his home fentanyl dose and see how he does his exam had shantelle basilar crackles, CXR is neg for fluid overload change ns to half ns given hypernatremia on labs today continue duonebs and steroids ans he still has some wheeze on exam continue abx for possible hcap pna goes in intermittent afib with rvr,started on metoprolol 25mg bid 09/23- CT abdomen reveals 9 mm distal common bile duct stone. Persistent diarrhea along with nausea and abdominal pain. Persistent confusion. White count 14.7. C. difficile negative. Stool cultures negative. Case discussed with surgery. PICC line placement today. White count 12.4 creatinine 1.6, 09/24- patient seen in room. Case discussed with surgery. Possible ischemic colitis. Stool studies have been negative. White count 14.8. Creatinine 1.7. No significant overnight events except for persistent watery diarrhea. Start bulk forming supplements. Continue physical therapy. Abdominal pain improved. Intermittent confusion. No overnight fever chills. 09/25- patient doing a lot better. Improved diarrhea. Improved delirium and confusion. No overnight telemetry events. Abdominal pain much improved. White count 16.4. Negative stool cultures/C. difficile. DC antibiotics. Case discussed with surgery. Per surgeon unlikely choledocholithiasis and CBD dilation represents normal postcholecystectomy change. Continue physical therapy. Transfer to medical floor today. Anticipate discharge to SNF . - Constitutional Vitals: Vital Signs Temp Pulse Resp BP Pulse Ox 98.2 F 72 18 154/73 90 09/25/17 04:00 09/25/17 04:00 09/25/17 04:00 09/25/17 04:00 09/25/17 04:00 Period Temp Pulse Resp BP Sys/Mcneill Pulse Ox Last 24 Hr 97.5 F-98.4 F 65-80 16-18 128-154/60-82 90-99 Intake and Output 09/24/17 09/25/17 09/25/17 21:59 05:59 13:59 Intake Total 530 / 530 820 / 820 200 / 200 Output Total Balance 526 / 526 819 / 819 200 / 200 Weight 247 lb 1.6 oz Intake & Output: Intake & Output 09/24/17 09/25/17 09/25/17 21:59 05:59 13:59 Intake Total 530 / 530 820 / 820 200 / 200 Output Total Balance 526 / 526 819 / 819 200 / 200 Weight 247 lb 1.6 oz Intake: IV 50 / 50 100 / 100 Zosyn 3.375 gm In Dextrose 5% 50 / 50 100 / 100 in Water 50 ml @ 100 mls/hr IV Q6H [facility] Rx#:[id number] Oral 480 / 480 720 / 720 200 / 200 Output: # of times incontinent of urine Other: Meal refused dinner had glucerna with banitrol Breakfast Percent of Meal Consumed Refused 10% Feeding Ability Assist with Tray Set Up # Bowel Movements 0 # of times incontinent of 2 Bowels General appearance: cooperative, no acute distress Exam: Alert and responding to verbal commands Nonlabored breathing No significant abdominal pain or distention No telemetry events Medical - PN: Obj Da - Labs CBC & Chem 7: 09/25/17 03:58 09/25/17 03:58 Labs: Abnormal Lab Results 09/25/17 09/25/17 09/24/17 03:58 03:58 03:36 WBC 16.4 H RBC 3.79 L Hgb 10.4 L Hct 32.2 L RDW 16.2 H Plt Count Gran % 91.7 H Lymph % (Auto) 4.4 L Gran # 15.0 H Lymph # (Auto) 0.7 L Lymphocytes % RBC Morphology Anisocytosis Carbon Dioxide 35 H 33 H BUN 43 H 51 H Creatinine 1.8 H 1.7 H Glucose 184 H 202 H Uric Acid Calcium 7.4 L 7.3 L Phosphorus 2.6 L Alkaline Phosphatase 35 L 32 L Lactate Dehydrogenase 258 H Total Protein 5.3 L Albumin 2.8 L Triglycerides 215 H 268 H 09/24/17 09/23/17 09/23/17 03:36 12:25 07:38 WBC 14.8 H 12.4 H RBC 3.53 L 3.73 L Hgb 9.7 L 10.0 L Hct 30.1 L 31.1 L RDW 16.4 H 15.9 H Plt Count 137 L Gran % 88.7 H 89.2 H Lymph % (Auto) 3.6 L 5.6 L Gran # 13.1 H 11.1 H Lymph # (Auto) 0.5 L 0.7 L Lymphocytes % RBC Morphology Anisocytosis Carbon Dioxide 32 H BUN 59 H Creatinine 1.6 H Glucose 171 H Uric Acid 8.2 H Calcium 7.8 L Phosphorus Alkaline Phosphatase 37 L Lactate Dehydrogenase 329 H Total Protein 5.8 L Albumin 3.0 L Triglycerides 329 H 09/22/17 07:15 WBC RBC Hgb Hct RDW Plt Count Gran % Lymph % (Auto) Gran # Lymph # (Auto) Lymphocytes % 11 L RBC Morphology Abnorm A Anisocytosis 1+ A Carbon Dioxide BUN Creatinine Glucose Uric Acid Calcium Phosphorus Alkaline Phosphatase Lactate Dehydrogenase Total Protein Albumin Triglycerides Meds: Medications Acetaminophen (Tylenol) 650 mg PO Q6HP PRN PRN Reason: PAIN/FEVER > 101 Albuterol/Ipratropium (Duoneb) 3 ml NEB QIDP PRN PRN Reason: Shortness Of Breath Aspirin (Aspirin) 81 mg PO DAILY [facility] Last Admin: 09/24/17 10:21 Dose: 81 mg Atorvastatin Calcium (Lipitor) 5 mg PO HS [facility] Last Admin: 09/24/17 20:40 Dose: 5 mg Clopidogrel Bisulfate (Plavix) 75 mg PO QAM [facility] Last Admin: 09/24/17 10:22 Dose: 75 mg Dextrose (Dextrose 50%) 0 ml IV UD PRN PRN Reason: Hypoglycemia Diagnostic Test (Pha) (Accu-Chek) 1 each FS ACHS [facility] Last Admin: 09/24/17 20:35 Dose: 1 each Fentanyl (Duragesic) 75 mcg TD Q72H [facility] Finasteride (Proscar) 5 mg PO DAILY [facility] Last Admin: 09/24/17 10:23 Dose: 5 mg Glucose (Insta-Glucose) 15 gm PO PRN PRN PRN Reason: Hypoglycemia Heparin Sodium (Porcine) (Heparin Flush) 2 ml IV Q12 [facility] Last Admin: 09/24/17 20:40 Dose: 2 ml Insulin Human Lispro (Humalog) 0 unit SQ ACHS [facility] PRN Reason: Protocol Last Admin: 09/24/17 20:40 Dose: 2 unit Insulin Human NPH (Humalin N) 30 unit SQ BIDAC [facility] Last Admin: 09/24/17 17:34 Dose: 30 unit Levothyroxine Sodium (Synthroid) 125 mcg PO HS [facility] Last Admin: 09/24/17 21:43 Dose: 125 mcg Loperamide HCl (Imodium) 2 mg PO PRN PRN PRN Reason: Diarrhea Metoprolol Tartrate (Lopressor) 100 mg PO BID [facility] Last Admin: 09/24/17 20:40 Dose: 100 mg Olanzapine (Zyprexa) 2.5 mg PO Q4HP PRN PRN Reason: Anxiety Last Admin: 09/24/17 20:40 Dose: 2.5 mg Ondansetron HCl (Zofran) 4 mg IV Q4-6HP PRN PRN Reason: Nausea And Vomiting Last Admin: 09/24/17 09:44 Dose: 4 mg Oxycodone/Acetaminophen (Percocet 10-325mg) 1 tab PO Q6HP PRN PRN Reason: PAIN LEVEL 3-6 Last Admin: 09/24/17 17:34 Dose: 1 tab Potassium Chloride (Kdur) 20 meq PO BIDCC [facility] Last Admin: 09/24/17 17:34 Dose: 20 meq Prednisone (Prednisone) 20 mg PO QAMCC [facility] Last Admin: 09/24/17 10:21 Dose: 20 mg Pregabalin (Lyrica) 75 mg PO BID [facility] Last Admin: 09/24/17 20:40 Dose: 75 mg Sodium Chloride (Saline Flush) 10 ml IV UD PRN PRN Reason: FLUSH Sodium Chloride (Saline Flush) 10 ml IV Q8 [facility] Last Admin: 09/25/17 05:37 Dose: 10 ml Sodium Chloride (Saline Flush) 10 ml IV Q12 [facility] Last Admin: 09/24/17 21:45 Dose: Not Given Tamsulosin HCl (Flomax) 0.4 mg PO HS [facility] Last Admin: 09/24/17 20:40 Dose: 0.4 mg Tiotropium Martin (Spiriva) 18 mcg INH QDAY [facility] Last Admin: 09/24/17 10:24 Dose: Not Given Medical - PN: A/P - Time Spent With Patient Total time spent is greater than 50% in coordination of care (as documented) at patient's floor/unit and/or counseling patient: 25 - 35 minutes - Narrative A/P Narrative: * Abdominal pain unclear etiology CT reveals 9 mm CBD stone. Ultrasound reveals dilated common bile duct 10-13 mm but no CBD stone. Discussed with surgery. Surgeon feels it's likely secondary to increased biliary flow and normal post cholecystectomy finding * Profuse watery diarrhea- likely ischemic colitis. Much improved on bulk forming agents. * Hypercapnic respiratory failure due to COPD exacerbation. On CPAP * COPD exacerbation -continue oral steroids for additional 48 hours along with inhaled bronchodilators * Leukocytosis at 16.4. DC antibiotics as no clear source. Negative cultures to date. Negative C. difficile. Likely steroid response. Trend white count * Subcutaneous soft tissue density overlying the right hemithorax. US soft tissue mass today * Acute change in mental status-clinically back to baseline. * Chronic kidney disease creatinine 1.7 * DM type II basal/sliding scale insulin * History of CAD HTN-oral meds- Plavix/aspirin/statin/metoprolol * Chronic pain on fentanyl 75 * Hypothyroidism on thyroxine * History of BPH on Proscar/tamsulosin * Prophylaxis on heparin * Neuropathy on Lyrica * Full code Plan * DC antibiotic 09/25 * Transfer to [facility] * Ultrasound soft tissue mass right hemithorax * Pre-existing medical condition management on home meds * Discharge coordination per case management Medical - PN: Qual - VTE Deep Vein Thrombosis/Pulmonary Embolism Present on Admission: No
[2017-09-25] MEDS ORDERED: fentaNYL 75 MCG PATCH TD SCH (10:00)
[2017-09-25] MEDS: predniSONE 20 MG TABLET PO SCH (10:20)
[2017-09-25] MEDS: ASPIRIN 81 MG TAB.CHEW PO SCH (10:20)
[2017-09-25] MEDS: METOPROLOL TARTRATE 50 MG TABLET PO SCH ×2 (10:20→20:08)
[2017-09-25] MEDS: CLOPIDOGREL 75 MG TABLET PO SCH (10:21)
[2017-09-25] MEDS: PREGABALIN 75 MG CAPSULE PO SCH ×2 (10:21→20:09)
[2017-09-25] MEDS: FINASTERIDE 5 MG TABLET PO SCH (10:21)
[2017-09-25] MEDS: INSULIN LISPRO 1 UNIT/0.01 ML UNIT SQ SCH ×4 (10:28→20:06)
[2017-09-25] MEDS: INSULIN NPH, HUMAN 1 UNIT/0.01 ML UNIT SQ SCH ×2 (10:30→17:32)
[2017-09-25] MEDS: POTASSIUM CHLORIDE 20 MEQ TABLET PO SCH ×2 (10:30→17:32)
[2017-09-25] MEDS: TIOTROPIUM BROMIDE 18 MCG INHALANT INH SCH (10:31)
--- NOTE | 2017-09-25 10:32 | Ultrasound Report ---
CLINICAL INFORMATION: Subcutaneous mass identified in the region of the right breast on previous abdominal CT scan TECHNIQUE: Grayscale and color flow Doppler spectral imaging COMPARISON: Abdominal CT scan dated 09/22/2017 FINDINGS: There is a hypoechoic, abnormality just deep to the right nipple. This corresponds in location to the CT abnormality. This appearance is consistent with gynecomastia. Patient had a prior chest CT scan dated 06/02/2013 which demonstrated bilateral gynecomastia. Findings are stable and considered benign. IMPRESSION: 1. Benign gynecomastia 2. Stable appearance since 06/02/2013 Interpreted and Authenticated by: Mo Dotson 09/25/17
[2017-09-25] MEDS ORDERED: ACETAMINOPHEN 325 MG TABLET PO PRN (11:03)
[2017-09-25] MEDS ORDERED: DEXTROSE 31 GM ORAL.SUSP PO PRN (11:03)
[2017-09-25] MEDS ORDERED: ONDANSETRON 4 MG/2 ML VIAL IV PRN (11:03)
[2017-09-25] MEDS ORDERED: IPRATROPIUM/ALBUTEROL 3 ML AMPUL.NEB NEB PRN (11:03)
[2017-09-25] MEDS ORDERED: oxyCODONE/APAP 10/325MG TABLET PO PRN (11:03)
[2017-09-25] MEDS ORDERED: DEXTROSE 50% 50 ML VIAL IV PRN (11:03)
[2017-09-25] MEDS: LOPERAMIDE 2 MG CAPSULE PO PRN ×2 (15:35→20:09)
[2017-09-25] MEDS: OLANZapine 2.5 MG TABLET PO PRN ×2 (15:35→22:21)
[2017-09-25] MEDS ORDERED: TAMSULOSIN 0.4 MG CAPSULE PO SCH (21:00)
[2017-09-25] MEDS ORDERED: LEVOTHYROXINE 125 MCG TABLET PO SCH (21:00)
[2017-09-25] MEDS ORDERED: ATORVASTATIN 20 MG TABLET PO SCH (21:00)
[2017-09-26] MEDS: POTASSIUM CHLORIDE 20 MEQ TABLET PO SCH (07:49)
[2017-09-26] MEDS: INSULIN NPH, HUMAN 1 UNIT/0.01 ML UNIT SQ SCH (07:50)
[2017-09-26] MEDS ORDERED: predniSONE 20 MG TABLET PO SCH (08:00)
[2017-09-26 08:12] LABS: ALT/SGPT 16 U/l (0-40); Albumin 3.2 gm/dL (3.2-5.2); Albumin/Globulin Ratio 1.2 (1.0-2.3); Alkaline Phosphatase 31 U/L (39-117); Bilirubin,Direct < 0.2 mg/dL (0.0-0.3); Blood Urea Nitrogen 54 mg/dl (8-23); Gamma Glutamyl Transpeptidase 25 U/L (8-61); Uric Acid 6.7 mg/dL (2.5-8.0)
[2017-09-26 08:15] LABS: Mean Cell Volume 85.3 fL (80.0-100.0); Mean Corpuscular HGB Conc 32.2 g/dL (31.0-36.0); Mean Corpuscular Hemoglobin 27.4 pg (26.0-34.0); Platelet Count 170 K/mcL (140-440); RBC 3.53 M/mcL (4.50-5.90); Red Cell Distribution Width 16.6 % (11.5-14.5)
[2017-09-26 08:59] LABS: Anisocytosis 1+ (NONE SEEN); Band Neutrophils % 1 % (0-10); Eosinophils % (Manual) 2 % (0-7); Lymphocytes % 12 % (15-49); Monocytes % (Manual) 5 % (1-12); Platelet Estimate NORMAL (NORMAL); RBC Morphology ABNORM (NORMAL); Segmented Neutrophils % 81 % (38-78)
[2017-09-26] MEDS ORDERED: CLOPIDOGREL 75 MG TABLET PO SCH (09:00)
[2017-09-26] MEDS ORDERED: FINASTERIDE 5 MG TABLET PO SCH (09:00)
[2017-09-26] MEDS ORDERED: ASPIRIN 81 MG TAB.CHEW PO SCH (09:00)
[2017-09-26] MEDS ORDERED: TIOTROPIUM BROMIDE 18 MCG INHALANT INH SCH (09:00)
[2017-09-26] MEDS: PREGABALIN 75 MG CAPSULE PO SCH (09:12)
[2017-09-26] MEDS: METOPROLOL TARTRATE 50 MG TABLET PO SCH (09:15)
--- NOTE | 2017-09-26 09:34 | Discharge Summary ---
Medical - DS: Prov Patient information: Note initiated : 09/26/17 at 9:26 am Service Date, if different from initiated Date: [] Patient: Carmelo Stewart 72 y/o M admitted on 09/17/17 for Weakness/Pneumonia. Chief Complaint: [] Date of admission: 09/17/17 13:41 Discharge date: 09/26/17 Consults: 09/17/17 12:35 Consult to Physician [CONS] Stat Comment: Consulting Provider: Chris Puga Reason For Exam: Physician to Consult 09/17/17 14:13 Consult to Physician [CONS] Stat Comment: Consulting Provider: Niall Shaver Reason For Exam: Physician to Consult 09/23/17 09:42 Consult to Physician [CONS] Routine Comment: Consulting Provider: Jackeline Andrea Reason For Exam: Physician to Consult 09/23/17 10:47 Consult to Physician [CONS] Routine Comment: Consulting Provider: Jackeline Andrea Reason For Exam: Physician to Consult Medical - DS: Meds - Discharge Medications Active and Home Medications: Home Medications fentanyl 75 mcg/hr transdermal patch 1 patch TRANSDERMA Q72H #10 patch 02/17/15 [Rx Confirmed 09/17/17 Last Taken Unknown] acetaminophen 325 mg tablet 650 mg PO Q4H PRN 12/20/15 [History Confirmed Last Taken Unknown] aspirin 81 mg tablet 81 mg PO QAM 12/20/15 [History Confirmed 09/17/17 Last Taken Unknown] atorvastatin 10 mg tablet 5 mg PO QHS tab 12/20/15 [History Confirmed 09/17/17 Last Taken Unknown] bisacodyl 10 mg rectal suppository 10 mg [place] ONCE PRN 12/20/15 [History Confirmed 09/17/17 Last Taken Unknown] budesonide-formoterol HFA 80 mcg-4.5 mcg/actuation aerosol inhaler 1 inh INHALATION QDAY g 12/20/15 [History Confirmed 09/17/17 Last Taken Unknown] clopidogrel 75 mg tablet 75 mg PO QAM tab 12/20/15 [History Confirmed 09/17/17 Last Taken Unknown] docusate sodium 100 mg capsule 100 mg PO BID PRN 12/20/15 [History Confirmed Last Taken Unknown] glucagon (human recombinant) 1 mg/mL solution for injection 1 mg IM ONCE [History Confirmed 09/17/17 Last Taken Unknown] ipratropium-albuterol 0.5 mg-3 mg(2.5 mg base)/3 mL nebulization soln See Label Instructions INHALATION QID PRN ml 12/20/15 [History Confirmed 09/17/17 Last Taken Unknown] linagliptin 5 mg tablet 5 mg PO QDAY 12/20/15 [History Confirmed 09/17/17 Last Taken Unknown] magnesium oxide 400 mg tablet 400 mg PO BID 12/20/15 [History Confirmed Last Taken Unknown] tiotropium bromide 18 mcg capsule with inhalation device 1 cap INHALATION QDAY 12/20/15 [History Confirmed 09/17/17 Last Taken Unknown] dimethicone 1.5 % topical cream 1.5 % TOPICAL BID PRN ml 01/05/16 [History Confirmed 09/17/17 Last Taken Unknown] pregabalin 75 mg capsule 75 mg PO BID #14 cap 03/22/16 [Rx Confirmed 09/17/17 Last Taken Unknown] oxycodone 7.5 mg tablet,oral ONLY (not for feeding tubes) 7.5 mg PO BIDP PRN 09/18 [History Confirmed 09/17/17 Last Taken Unknown] insulin glargine (U-100) 100 unit/mL subcutaneous solution 33 unit SUB-Q QHS ml 07/11/16 [History Confirmed 09/17/17 Last Taken Unknown] levothyroxine 125 mcg tablet 125 mcg PO HS 10/15/16 [History Confirmed 09/17/17 Last Taken Unknown] hydralazine 10 mg tablet 10 mg PO TID PRN #30 tab 01/16/17 [Rx Confirmed Last Taken Unknown] ferrous sulfate 325 mg (65 mg iron) tablet 325 mg PO QDAY tab 07/31/17 [ History Confirmed 09/17/17 Last Taken Unknown] bumetanide 1 mg tablet 1 mg PO BID tab 09/05/17 [History Confirmed 09/17/17 Last Taken Unknown] Finasteride [Proscar] 5 mg PO DAILY 09/17/17 [History Confirmed 09/17/17 Last Taken Unknown] Metolazone [Zaroxolyn] 2.5 mg PO UD 09/17/17 [History Confirmed 09/17/17 Last Taken Unknown] Potassium Chloride [K-Tab ER] 20 meq PO BID 09/17/17 [History Confirmed Last Taken Unknown] Tamsulosin HCl [Flomax] 0.4 mg PO HS 09/17/17 [History Confirmed 09/17/17 Last Taken Unknown] Tolnaftate [Antifungal] 113.3 gm TP PRN PRN 09/17/17 [History Confirmed Last Taken Unknown] Medical - DS: Hosp Hospital course: Discharge diagnosis * Ischemic colitis-evident on CT with mesenteric edema and associated diarrhea. Clinically resolved. On aspirin and Plavix * Abdominal pain likely secondary to ischemic colitis. CT abdomen revealed CBD stone however Ultrasound reveals dilated common bile duct 10-13 mm but no CBD stone. Discussed with surgery. Surgery opinion- likely secondary to increased biliary flow and represents normal post cholecystectomy finding * Profuse watery diarrhea-secondary to ischemic colitis. Clinically improved on bulk forming agents. * Hypercapnic respiratory failure due to COPD exacerbation. Clinically resolved with noninvasive ventilation. Continue home CPAP on discharge * History of COPD-continue inhaled bronchodilators * Leukocytosis at 16.4 downtrending and 13.9. Secondary to steroids. Off antibiotics. Negative cultures to date. Negative C. difficile. * Acute change in mental status- clinically back to baseline. DC steroids, possibly steroid-induced psychosis * Chronic kidney disease creatinine 1.7. Follow-up nephrology outpatient * DM type II basal/sliding scale insulin * History of CAD HTN-oral meds- Plavix/aspirin/statin/metoprolol * Chronic pain on fentanyl 75 * Hypothyroidism on thyroxine * History of BPH on Proscar/tamsulosin * Prophylaxis on heparin * Neuropathy on Lyrica Brief hospital course Mr. Stewart is a 72 year old Male with multiple medical issues, presents to the ER from [place] after being confused and drowsy since this AM, no other history available, apart from possible fall yesterday In the ER pt was somnolent and only wakes up to verbal of touch, does not open eyes spontaneously, he tries to answer questions but unable to provide any meaninful input. I am aware that the ER provider tried to ask him if he would like to be cardioverted, and he noted yes, I doubt if he comphreneds enough to provide any meaningful answer to that question. Workup in the ER, showed stable vital signs. WBC count of 9.0, no left shift, hemoglobin 9.6 platelets 161. Sodium 143, potassium 3.3, chloride 91, bicarbonate 39 elevated from before, BUN is 102 elevated from baseline for him 60-70, creatinine is 2.2, glucose 243. Calcium is 11.3 elevated. Lactic acid 1.4, troponin 0 0.18 patient has had chronic elevation of troponins in the past but not this high usually highest was 0.1 to a couple of years ago. Patient has CK and CK-MB levels which are normal. BNP is 1861. Ammonia level 17. ABG shows pH of 7.5 to-PCO2 58-p.o. 203. Chest x-ray shows possible pneumonia in the right base, EKG shows sinus rhythm few PACs, left axis left anterior vascular block, T-wave inversions in the lateral leads, QS patterns V1 V2, Head CT neg. His case was reviewed by [facility] Inspector Dr Butt, who noted that his rise in troponin is non cardiac in nature, and did not want pt to be transferred to higher center. 09/18 Pt seen examined, no acute ovenright issues, mental status better, he is more agitated and angry, rude with the nursing staff, it seems this is his baseilne status. trop trended up, and is now trending down, he did have afib with rvr which may have contributed to some rise in trop. repeat again in AM continue with gentole hydration and see how he does in AM, 09/19 pt seen examined, labs show leucocytosis but improving bun pt mental status is better, but keeps yelling help me all the time, whenever there is no one in the room he gets anxious will resume his home fentanyl dose and see how he does his exam had shantelle basilar crackles, CXR is neg for fluid overload change ns to half ns given hypernatremia on labs today continue duonebs and steroids ans he still has some wheeze on exam continue abx for possible hcap pna goes in intermittent afib with rvr,started on metoprolol 25mg bid 09/23- CT abdomen reveals 9 mm distal common bile duct stone. Persistent diarrhea along with nausea and abdominal pain. Persistent confusion. White count 14.7. C. difficile negative. Stool cultures negative. Case discussed with surgery. PICC line placement today. White count 12.4 creatinine 1.6, 09/24- patient seen in room. Case discussed with surgery. Possible ischemic colitis. Stool studies have been negative. White count 14.8. Creatinine 1.7. No significant overnight events except for persistent watery diarrhea. Start bulk forming supplements. Continue physical therapy. Abdominal pain improved. Intermittent confusion. No overnight fever chills. 09/25- patient doing a lot better. Improved diarrhea. Improved delirium and confusion. No overnight telemetry events. Abdominal pain much improved. White count 16.4. Negative stool cultures/C. difficile. DC antibiotics. Case discussed with surgery. Per surgeon unlikely choledocholithiasis and CBD dilation represents normal postcholecystectomy change. Continue physical therapy. Transfer to medical floor today. Anticipate discharge to SNF . 09/26- pt doing a lot better, no overnight events. Diarrhea improving. Abdominal pain resolved. Refuses physical therapy this morning. No concerns expressed by nursing staff other intermittent confusion. Pain in good control. Discharge to SNF for continued rehabilitation. Antibiotics discontinued after 7 days. Discharge diagnosis: . - Time Spent with Patient Total time spent providing and/or coordinating discharge services: Medical - DS: Exam - Constitutional Vitals: Vital Signs Temp Pulse Pulse Resp BP Pulse Ox 09/26/17 07:14 70 20 95 09/26/17 07:05 97.3 F 16 129/74 95 09/26/17 04:00 97.5 F 70 14 140/76 97 09/25/17 23:59 98.2 F 77 14 119/75 95 09/25/17 22:31 62 20 09/25/17 20:49 62 16 91 09/25/17 20:00 99.0 F H 75 18 143/71 93 09/25/17 15:28 97.8 F 70 18 153/78 97 09/25/17 12:00 97.8 F 62 14 128/75 100 Intake and Output 09/25/17 09/26/17 09/26/17 21:59 05:59 13:59 Intake Total 490 / 490 400 / 400 Output Total Balance 488 / 488 399 / 399 Intake: Oral 490 / 490 400 / 400 Output: # of times incontinent of urine Other: Stool Size Large Stool Color Brown Green Black Stool Consistency Liquid Loose # of times incontinent of 1 Bowels Weight 245 lb Medical - DS: Data Labs on day of discharge: Labs from last 24 hours 09/26/17 09/26/17 07:10 07:10 WBC 13.9 H RBC 3.53 L Hgb 9.7 L Hct 30.1 L MCV 85.3 MCH 27.4 MCHC 32.2 RDW 16.6 H Plt Count 170 MPV 10.2 Gran % TNP Lymph % (Auto) TNP [place] % (Auto) TNP Eos % (Auto) TNP Baso % (Auto) TNP Gran # TNP Lymph # (Auto) TNP [place] # (Auto) TNP Eos # (Auto) TNP Baso # (Auto) TNP Total Counted 200 Seg Neutrophils % 81 H Band Neutrophils % 1 Lymphocytes % 12 L Monocytes % (Manual) 5 Eosinophils % (Manual) 2 Platelet Estimate Normal RBC Morphology Abnorm A Anisocytosis 1+ A Sodium 144 Potassium 4.8 Chloride 104 Carbon Dioxide 33 H Anion Gap 7.0 L BUN 54 H Creatinine 1.8 H GFR Calculation 37 Glucose 123 H Uric Acid 6.7 Calcium 7.3 L Phosphorus 2.8 Magnesium 2.2 Total Bilirubin 0.2 Direct Bilirubin < 0.2 GGT 25 AST 12 ALT 16 Alkaline Phosphatase 31 L Lactate Dehydrogenase 224 Total Protein 5.9 Albumin 3.2 Globulin 2.7 Albumin/Globulin Ratio 1.2 Triglycerides 175 H Medical - DS: A/P - Patient/Caregiver Discharge Instructions Activity: as per physical therapy Diet: Renal/Consistent Carbs Additional Instructions: Follow-up PCP in 5 days I recommend SNF physician to check CBC BMP as a posthospital follow-up in 1 week. Continue aggressive bowel regimen to prevent constipation Continue fall precautions Continue aggressive PT OT evaluation and treatment at SNF. ST eval and treatment if indicated All meals on chair sitting upright at 90 degrees to prevent aspiration Return to ER if worsening fever chills shortness of breath, diarrhea, bleeding Refrain from smoking and alcohol Continue diet and activity as advised Discussed importance of medication adherence Please review medication list with patient prior to discharge Please schedule follow-up with PCP/Providers prior to discharge and provide printouts Portions of this chart may have been created with [employer] voice recognition software. Occasional wrong-word or ?sound-like? substitutions may have occurred due to the inherent limitations of voice recognition software. Please read the chart carefully and recognize, using context, where the substitutions have occurred. CC- PCP - Follow up Plan Disposition: Xfer [facility] Prognosis: Fair Rehab Potential: Fair I certify that the patient requires SNF services: Yes Overall status at discharge: patient is progressing back to baseline Medical - DS: Qual - VTE Deep Vein Thrombosis/Pulmonary Embolism Present on Admission: No
[2017-09-26] MEDS: INSULIN LISPRO 1 UNIT/0.01 ML UNIT SQ SCH ×2 (11:21→11:32)
[2017-09-26] MEDS: 0.9 % SODIUM CHLORIDE 10 ML SYRINGE IV SCH (11:22)
[2017-09-28] MEDS ORDERED: fentaNYL 75 MCG PATCH TD SCH (10:00)
== END 2017-09-26 12:20 | DRG 190 ==
LOC: ED 08:31 → ICU 13:41 → UNDODISIN 17:30 → MEDSUR 09-25 16:06
PROVIDERS: ADMIT Internal Medicine; ATTEND Internal Medicine